=== PATIENT | male | born 1940 | race Caucasian/White ===

== ENCOUNTER → 2016-09-15 | Outpatient (CLI) | payer BC ==
[~2016-09-15] MED LIST: ALPR-411 PO; ASPI81TA21 PO; CALC500C70 PO; EZET10TA38 PO; FLAX12003 PO; GLUC10007 PO; GLUCTAB7 PO; HYT/2 PO; IBUP-1050 PO; IRBE-37 PO; MELA1TAB5 PO; METO-551 PO; MULT-506 PO; NRN/300 PO; OMEG10007 PO; OMEP20TA74 PO; RXC5 PO; TERAZOSIN PO; [UNRECOGNIZED DRUG - CODE] PO; [UNRECOGNIZED DRUG - OTHER] PO; [UNRECOGNIZED DRUG - OTHER] PO
[2016-09-15 15:32] LABS: BASO % 0.7 %; BASO ABS # 0.03 K/uL (0-0.2); COMPLETE YES; EOS % 4.8 %; HEMATOCRIT 34.2 % (42-52); IG% 0.2 %; LYMPH % 15.8 %; MEAN CELL VOLUME 90.7 fL (80-100); MEAN CORPUSCULAR HEMOGLOBIN 32.1 pg (25-34); MEAN CORPUSCULAR HGB CONC 35.4 g/dl (32-36); MEAN PLATELET VOLUME 8.7 fL (7.4-10.4); MONO % 12.4 %; NEUT % 66.1 %; PLATELET COUNT 274 K/uL (130-400); RED BLOOD COUNT 3.77 M/uL (4.7-6.1); WHITE BLOOD COUNT 4.42 K/uL (4.8-10.8)
[2016-09-15 16:02] LABS: FERRITIN 116.8 ng/ml (8.0-388.0)
== END | disposition home or self-care (01) ==
LOC: C.LAB 14:17
DX: D64.9 Anemia, unspecified (principal)

== ENCOUNTER → 2017-01-30 | Day surgery (SDC) | payer BC, OTHER ==
[2017-01-27 10:16] VITALS: Ht 171.5 cm; Wt 77.3 kg
[~2017-01-30] VITALS: Ht 171.5 cm; Wt 77.3 kg
[~2017-01-30] MED LIST changes: +500ML BSS 0.3ML EPI 1:1000PF IRRIG ONE; +ACETAMINOPHEN 325 MG TAB PO PRN; +AMVISC PLUS 0.8ML SYRINGE INT OCU ONE; +ATROPINE SULFATE 0.1 MG/ML 5ML SYR IV PRN; +BRIMONIDINE TART 0.2% OP SOLN PER DROP CHARGE ONE; +BSS FLUSH ONE; +ENDOCOAT 0.85ML SYRINGE INT OCU ONE; +EpINEphrine INJ 1MG/ML AMP 1 MG/ML AMP ONE; +LACTATED RINGER'S 1000ML 500 ML IV SCH; +LIDOCAINE 4% OP SOLN DROP CHARGE ONE; +LIDOCAINE 4% OP SOLN DROP CHARGE OPL SCH; +LIDOCAINE HCL 1% MPF 2 ML VIAL ONE; +MIDAZOLAM HCL 1 MG/ML 2ML VIAL ONE; +MIX: 3ML BSS AND 1ML EPI(PF) TOP ONE; +MOXIFLOXACIN OPH SOLN PER DROP CHARGE ONE; -NRN/300 PO; +POVIDONE-IODINE OP SOLN 30 ML BTL ONE; +PROPARACAINE 0.5% OP SOLN PER DROP CHARGE OPL SCH; +TOBRAMYCIN/DEXAMETHASONE OPH OINT PER APPLN CHARGE ONE
[2017-01-30] MEDS: PHENYLEPHRINE HCL 2.5% OP SOLN PER DROP CHARGE OPL SCH ×2 (10:16→10:21)
[2017-01-30] MEDS: TROPICAMIDE 1% OP SOLN PER DROP CHARGE OPL SCH ×2 (10:17→10:22)
[2017-01-30] MEDS: CYCLOPENTOLATE HCL 1% OP SOLN PER DROP CHARGE OPL SCH ×2 (10:18→10:23)
[2017-01-30] MEDS: KETOROLAC 0.5% OP SOLN PER DROP CHARGE OPL SCH ×2 (10:19→10:24)
[2017-01-30] MEDS: MOXIFLOXACIN OPH SOLN PER DROP CHARGE OPL SCH ×2 (10:20→10:30)
--- NOTE | 2017-01-30 10:40 | History & Physical Bridge - [place] ---
H&P Re-Evaluation Bridge Note: I have examined the patient, reviewed the History & Physical and in the interval since the performance of the History & Physical I have noted the following changes of clinical significance: No changes noted
--- NOTE | 2017-01-30 11:39 | Discharge Instructions-SurgCtr ---
Discharge Instructions Date of Service Jan 30, 2017. Visit Reason for Visit: Cataract Left Eye Discharge Discharge Diagnosis / Problem: cataract left eye Discharge Goals Goal(s): Improve function Activity Recommendations Activity Limitations: per Instructions/Follow-up section Lifting Limitations: no more than 5 pounds Anesthesia . Post Anesthesia Instructions: If you have had General Anesthesia or IV Sedation: * Do not drive today. * Resume driving when surgeon permits. * Do not make important decisions or sign legal documents today. * Call surgeon for: 1. Temperature elevations greater than 101 degrees F. 2. Uncontrollable pain. 3. Excessive bleeding. 4. Persistent nausea and vomiting. 5. Medication intolerance (nausea, vomiting or rash). * For nausea and vomiting use only clear liquids such as: tea, soda, bouillon until nausea subsides, then gradually increase diet as tolerated. * If you have any concerns or questions, call your surgeon's office. If physician is unavailable and it is an emergency, call 911 or go to the nearest emergency room. . Instructions / Follow-Up Instructions / Follow-Up ACTIVITY RECOMMENDATIONS: * Light activities * You may walk outside, read, watch television. * Mild irritation and blurred vision are common for the first few days, redness around the white part of the eye is common. MEDICATIONS: Resume previous medications unless instructed otherwise by your surgeon. Eye drops (today and tomorrow): Cipro - one drop in operative eye every 2 hours while awake Prednisolone 1% - one drop in operative eye every 2 hours while awake Ilevro - one drop operative eye 1 times daily SPECIAL CARE INSTRUCTIONS: * If any problems or concerns, please call Dr. Mar's office at . * Keep plastic shield taped over eye to sleep at night. * Keep plastic shield taped over eye except to administer eye drops. * Keep plastic shield on until office visit the following day. FOLLOW UP VISIT: Follow-up with Dr. Mar in the [place] office as scheduled. If not already scheduled, please call the office at . Diet Recommendations Home Diet: resume previous diet Procedures Procedures Performed: Left Cataract Phacoemulsification With Intraocular Lens Implant Pending Studies Studies pending at discharge: no Medical Emergencies . Who to Call and When: Medical Emergencies: If at any time you feel your situation is an emergency, please call 911 immediately. . Non-Emergent Contact Non-Emergency issues call your: Senior Billing Consultant . . "Provider Documentation" section prepared by George Mar. .
--- NOTE | 2017-01-30 11:42 | [facility] Operative Report ---
Operative Report Operative Date Jan 30, 2017. Pre-Operative Diagnosis Cataract Left Eye Post-Operative Diagnosis Same Procedure(s) Performed Left Cataract Phacoemulsification With Intraocular Lens Implant Surgeon Dr. Mar Blue Print Control Clerk Surgeon(s) None Estimated Blood Loss 0 mL Findings cataract left eye Specimens None Drains none Anesthesia local with sedation Complication(s) None Disposition Recovery Room / PACU Implants MX60 17.0 Indications decreased vision left eye Description of Procedure After informed consent was obtained in the holding area the patient was wheeled back to the operating room where cardiac monitoring leads and oxygen by nasal cannula was administered by Anesthesia. Gentle IV sedation was given, and the patient's left eye was prepped and draped in usual sterile fashion. A wire lid speculum was placed into the left eye and the operating microscope was swung into position. Using 0.12 forceps and a Supersharp blade a paracentesis port was made 3 o'clock hours away from the 3 o'clock position of the patient's left eye. 1% non-preserved Lidocaine was then injected into the anterior chamber for anesthesia followed by 1ml of nonpreserved epinephrine in 3ml of bss for pupillary dilation. A 2.2 mm keratotome blade was then used to make a shelved clear corneal incision at the 3 o'clock position of the left eye. Amvisc was injected into the anterior chamber and a cystotome and Utrata forceps were used to perform a curvilinear capsulorrhexis. BSS on a hydrodissection cannula was used to hydrodissect the lens nucleus away from the capsular bag. The phacoemulsification handpiece was then used in a stop and chop fashion to remove the lens nucleus. The irrigation and aspiration handpiece was then used to remove the residual cortical material. Amvisc was injected into the capsular bag and anterior chamber and a [employer]ch [employer] Lomb MX60 17.0 Diopter intraocular lens was injected into the capsular bag. Irrigation and aspiration handpiece was used to remove the residual viscoelastic material. The wounds were hydrated and noted to be watertight. The wire lid speculum was removed from the eye. Vigamox, Brimonidine, and TobraDex ointment were placed on the eye and it was shielded. It should be noted that EndoCoat was used extensively during the case to protect the cornea endothelium. DISPOSITION: The patient tolerated the procedure well and was wheeled to the post anesthesia care unit in stable condition. I attest to the content of the Intraoperative Record and any orders documented therein. Any exceptions are noted below. I attest to the content of the Intraoperative Record and any orders documented therein. Any exceptions are noted below.
[2017-01-30 12:06] VITALS: BP 156/92; PULSE 51; TEMP 36.2; O2SAT 100
--- NOTE | 2017-01-30 12:07 | Anesthesia Progress Nt - [facility] ---
Anesthesia Post Op Note Date & Time Jan 30, 2017 at 12:07 Vital Signs Pain Intensity: 0 Vital Signs Past 12 Hours Date Time Temp Pulse Resp B/P (MAP) Pulse Ox O2 Delivery O2 Flow Rate FiO2 01/30/17 11:39 36.0 66 16 150/95 (113) 97 Room Air 01/30/17 09:59 36.4 52 16 159/92 (114) 100 Room Air Notes Mental Status: alert / awake / arousable, participated in evaluation Pt Amnestic to Procedure: Yes Nausea / Vomiting: adequately controlled Pain: adequately controlled Airway Patency, RR, SpO2: stable & adequate BP & HR: stable & adequate Hydration State: stable & adequate Anesthetic Complications: no major complications apparent
== END | disposition home or self-care (01) ==
LOC: X.SURG 08:29
PROVIDERS: ATTEND Ophthalmology
DX: H26.9 Unspecified cataract (principal); I10 Essential (primary) hypertension; M19.90 Unspecified osteoarthritis, unspecified site; D64.9 Anemia, unspecified

== ENCOUNTER → 2017-02-01 | Outpatient (CLI) | payer BC ==
[~2017-02-01] MED LIST changes: -500ML BSS 0.3ML EPI 1:1000PF IRRIG ONE; -ACETAMINOPHEN 325 MG TAB PO PRN; -AMVISC PLUS 0.8ML SYRINGE INT OCU ONE; -ATROPINE SULFATE 0.1 MG/ML 5ML SYR IV PRN; -BRIMONIDINE TART 0.2% OP SOLN PER DROP CHARGE ONE; -BSS FLUSH ONE; -ENDOCOAT 0.85ML SYRINGE INT OCU ONE; -EpINEphrine INJ 1MG/ML AMP 1 MG/ML AMP ONE; -LACTATED RINGER'S 1000ML 500 ML IV SCH; -LIDOCAINE 4% OP SOLN DROP CHARGE ONE; -LIDOCAINE 4% OP SOLN DROP CHARGE OPL SCH; -LIDOCAINE HCL 1% MPF 2 ML VIAL ONE; -MIDAZOLAM HCL 1 MG/ML 2ML VIAL ONE; -MIX: 3ML BSS AND 1ML EPI(PF) TOP ONE; -MOXIFLOXACIN OPH SOLN PER DROP CHARGE ONE; -POVIDONE-IODINE OP SOLN 30 ML BTL ONE; -PROPARACAINE 0.5% OP SOLN PER DROP CHARGE OPL SCH; -TOBRAMYCIN/DEXAMETHASONE OPH OINT PER APPLN CHARGE ONE
== END | disposition home or self-care (01) ==
LOC: C.CTS 12:10
PROVIDERS: ATTEND Orthopaedic Surgery
DX: M19.019 Primary osteoarthritis, unspecified shoulder (principal)

== ENCOUNTER → 2017-03-31 | Outpatient (CLI) | payer BC ==
[~2017-03-31] MED LIST changes: -TERAZOSIN PO; -[UNRECOGNIZED DRUG - CODE] PO; -[UNRECOGNIZED DRUG - OTHER] PO
[2017-03-31 09:40] LABS: BASO % 0.6 %; BASO ABS # 0.02 K/uL (0-0.2); COMPLETE YES; EOS % 6.4 %; HEMATOCRIT 39.8 % (42-52); LYMPH % 13.6 %; LYMPH ABS # 0.49 K/uL (1.2-3.4); MEAN CELL VOLUME 93.6 fL (80-100); MEAN CORPUSCULAR HGB CONC 34.2 g/dl (32-36); MEAN PLATELET VOLUME 8.8 fL (7.4-10.4); MONO % 13.6 %; NEUT % 65.8 %; PLATELET COUNT 279 K/uL (130-400); RED BLOOD COUNT 4.25 M/uL (4.7-6.1); WHITE BLOOD COUNT 3.61 K/uL (4.8-10.8)
[2017-03-31 09:42] LABS: URINE APPEARANCE CLEAR (CLEAR); URINE BILIRUBIN NEG (NEG); URINE COLOR YELLOW; URINE NITRITE NEG (NEG); URINE PH 6.5 (4.5-7.5); URINE SPECIFIC GRAVITY 1.018 (1.000-1.030); UROBILINOGEN NEG (NEG)
[2017-03-31 09:48] LABS: MANUAL MICROSCOPIC REQUIRED? NO; REVIEW REQ? NO
[2017-03-31 09:54] LABS: INR 1.1 (0.9-1.1); PARTIAL THROMBOPLASTIN RATIO 1.1; PROTHROMBIN TIME (PATIENT) 11.8 SECONDS (9.0-12.0)
[2017-03-31 10:08] LABS: ALT/SGPT 30 U/L (12-78); AST/SGOT 24 U/L (15-37); BLOOD UREA NITROGEN 30 mg/dl (7-18); BUN/CREATININE RATIO 30.2 (10-20); CARBON DIOXIDE 29 mmol/L (21-32); CHLORIDE 106 mmol/L (98-107); GLUCOSE 86 mg/dl (70-99); POTASSIUM 4.1 mmol/L (3.5-5.1); SODIUM 139 mmol/L (136-145)
[2017-03-31 10:16] LABS: CHOLESTEROL 102 mg/dl (0-200); CHOLESTEROL/HDL RATIO 3.2; HDL CHOLESTEROL 32 mg/dl; LDL CHOLESTEROL CALCULATED 61 mg/dl; TRIGLYCERIDES 44 mg/dl (0-150); VERY LOW DENSITY LIPOPROT CALC 9 mg/dl
== END | disposition home or self-care (01) ==
LOC: C.LAB 07:05
PROVIDERS: ATTEND Orthopaedic Surgery
DX: Z01.812 Encounter for preprocedural laboratory examination (principal); M19.012 Primary osteoarthritis, left shoulder; E78.5 Hyperlipidemia, unspecified; I10 Essential (primary) hypertension

== ENCOUNTER 2017-04-17 09:16 | Inpatient (IN) | payer BC, OTHER ==
[2017-02-01 13:13] VITALS: BMI 26.0
--- NOTE | 2017-02-01 13:52 | PAT Medication Instructions ---
Service Date Feb 01, 2017. Current Home Medication List Alprazolam (Xanax), 0.5 MG PO HS Aspirin Enteric Coated (Ecotrin Or Generic), 81 MG PO QPM Calcium/Vitamin D (Os-Brad 500 Plus D), 1 TAB PO BID Ezetimibe/Simvastatin (Vytorin 10MG/20MG), 0.5 TABLET PO HS Fish Oil ([place]-3), 1 CAP PO BID Flaxseed (Linseed) (Flaxseed Oil), 1 TAB PO NOON Glucosamine Sulfate (Glucosamine), 1,000 MG PO NOON Pvfdscfuzas-Jlmwyfrxtil-Hpx C- (Glucosamine Chondroitin), 1 TAB PO BID Ibuprofen (Advil), 200-800 MG PO PRN Irbesartan (Avapro), 150 MG PO QAM Melatonin (Kp Melatonin), 1 TAB PO HS Metoprolol Tartrate (Lopressor), 25 MG PO BID Multivitamin (Multivitamin), 1 TABLET PO QAM Omeprazole (Ra Omeprazole), 20 MG PO QPM Terazosin Hcl (Hytrin), 1 MG PO HS [Natural Gh Formula], 1 TAB PO HS Medication Instructions For Your Scheduled Surgery - Hold the following medications 2 weeks prior to surgery: Fish Oil ([place]-3), 1 CAP PO BID Flaxseed (Linseed) (Flaxseed Oil), 1 TAB PO NOON Glucosamine Sulfate (Glucosamine), 1,000 MG PO NOON Hqevnpitjem-Wevrkgtfihj-Dfl C- (Glucosamine Chondroitin), 1 TAB PO BID [Natural Gh Formula], 1 TAB PO HS - Hold the following medications the morning of surgery: Irbesartan (Avapro), 150 MG PO QAM Multivitamin (Multivitamin), 1 TABLET PO QAM Calcium/Vitamin D (Os-Brad 500 Plus D), 1 TAB PO BID Ibuprofen (Advil), 200-800 MG PO PRN (otherwise okay to continue per surgeon) - Take the following medications the morning of surgery with a sip of water OTHERWISE NOTHING TO EAT OR DRINK AFTER MIDNIGHT: Metoprolol Tartrate (Lopressor), 25 MG PO BID - Take the following medications as scheduled the night before surgery: Ezetimibe/Simvastatin (Vytorin 10MG/20MG), 0.5 TABLET PO HS Alprazolam (Xanax), 0.5 MG PO HS Aspirin Enteric Coated (Ecotrin Or Generic), 81 MG PO QPM Omeprazole (Ra Omeprazole), 20 MG PO QPM Terazosin Hcl (Hytrin), 1 MG PO HS Melatonin (Kp Melatonin), 1 TAB PO HS Metoprolol Tartrate (Lopressor), 25 MG PO BID Calcium/Vitamin D (Os-Brad 500 Plus D), 1 TAB PO BID If you have any questions please call us at [phone] or [phone] or [phone]
[2017-02-01 14:31] LABS: BASO % 0.7 %; BASO ABS # 0.03 K/uL (0-0.2); COMPLETE YES; EOS % 3.8 %; HEMATOCRIT 37.9 % (42-52); IG% 0.2 %; LYMPH % 13.6 %; MEAN CELL VOLUME 92.7 fL (80-100); MEAN CORPUSCULAR HGB CONC 34.6 g/dl (32-36); MEAN PLATELET VOLUME 8.6 fL (7.4-10.4); MONO % 12.4 %; NEUT % 69.3 %; PLATELET COUNT 287 K/uL (130-400); RED BLOOD COUNT 4.09 M/uL (4.7-6.1); WHITE BLOOD COUNT 4.42 K/uL (4.8-10.8)
[2017-02-01 14:40] LABS: INR 1.1 (0.9-1.1); PROTHROMBIN TIME (PATIENT) 11.3 SECONDS (9.0-12.0); URINE APPEARANCE CLEAR (CLEAR); URINE BILIRUBIN NEG (NEG); URINE COLOR YELLOW; URINE NITRITE NEG (NEG); URINE PH 7.5 (4.5-7.5); URINE SPECIFIC GRAVITY 1.012 (1.000-1.030); UROBILINOGEN NEG (NEG); ZZUR CULT IF INDIC CLEAN CATCH NO
[2017-02-01 14:46] LABS: MANUAL MICROSCOPIC REQUIRED? NO; REVIEW REQ? NO
--- NOTE | 2017-02-01 14:54 | DIAGNOSTIC IMAGING REPORT ---
TWO VIEW CHEST CLINICAL HISTORY: Preoperative examination. FINDINGS: PA and lateral chest radiographs are compared to study dated 11/18/2015 and correlated with chest CT dated 11/25/2015. The cardiomediastinal silhouette is unremarkable. There is atherosclerotic calcification of the thoracic aorta. The lungs and pleural spaces are clear. There is no pneumothorax. There are healed right-sided rib fractures. Degenerative change and scoliosis are noted in the thoracic spine. IMPRESSION: No active disease in the chest. Electronically signed by: Bladimir Gant M.D. 02/01/2017 2:53 PM Dictated Date/Time: 02/01/2017 2:52 PM
[2017-02-01 16:26] LABS: BUN/CREATININE RATIO 24.1 (10-20); CALCIUM 9.7 mg/dl (8.5-10.1); CREATININE 1.1 mg/dl (0.60-1.40); POTASSIUM 4.3 mmol/L (3.5-5.1)
[2017-03-30 08:08] VITALS: BMI 26.0
--- NOTE | 2017-04-14 09:47 | HISTORY & PHYSICAL EXAMINATION ---
DATE OF ADMISSION: 04/17/2017 CHIEF COMPLAINT: Primary osteoarthritis of the left shoulder. HISTORY OF PRESENT ILLNESS: Laci is a pleasant 77-year-old male who has been dealing with chronic left shoulder pain. X-rays and clinical examination are diagnostic for primary osteoarthritis of the left shoulder. 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 He has elected to proceed with a left total shoulder arthroplasty. He understands all the risks, benefits, alternatives to procedure and elected to proceed. PAST MEDICAL HISTORY: Hyperlipidemia, hypertension, and prostate cancer. MEDICATIONS: Include alprazolam 0.5 mg daily, Avapro 150 mg daily, metoprolol 25 mg twice a day, Vytorin 10/20, one-half tab daily, omeprazole 20 mg daily, calcium 600 mg twice a day, glucosamine 1500 mg daily, aspirin 81 mg daily, terazosin 1 mg daily, and a daily multivitamin. PAST SURGICAL HISTORY: Significant for surgery to his head, surgery to his neck, his back and his arm. ALLERGIES: None. FAMILY HISTORY: Noncontributory. SOCIAL HISTORY: The patient is . Rarely drinks, is very active. REVIEW OF SYSTEMS: The patient complains of left shoulder pain. All other pertinent review of systems are negative. PHYSICAL EXAMINATION: GENERAL: He is awake, alert and oriented x3. He is in no apparent distress. He is very pleasant. HEAD, EYES, EARS, NOSE, AND THROAT: Pupils are equal, round and reactive to light. Extraocular motion intact. Oral mucosa is pink and moist. HEART: Regular rate per radial pulse. LUNGS: Vandana symmetrically bilaterally with no audible breath sounds. ABDOMEN: Soft, nontender, nondistended. MUSCULOSKELETAL: On physical examination of the left shoulder, he has about 140 degrees of forward flexion and 40 degrees of abduction. He has 5/5 muscle strength, full can testing and external rotation. He has significant crepitus throughout. Pain over the anterior glenohumeral joint line. X-rays of the left shoulder do show advanced osteoarthritis with complete loss of joint space and osteophyte formation. IMPRESSION: Primary osteoarthritis of the left shoulder. PLAN: We will proceed with a Biomet comprehensive left total shoulder arthroplasty. Postoperatively, he will be placed in a sling and kept overnight for postoperative medical management.
[2017-04-17] VITALS (9 sets, daily range): BP systolic 122–173; BP diastolic 70–93; PULSE 57–107; TEMP 36.3–36.8; O2SAT 94–97; Ht 172.7 cm; Wt 75.0 kg
[~2017-04-17] VITALS: Ht 172.7 cm; Wt 75.0 kg
[2017-04-17] MEDS: TRANEXAMIC ACID INJ 1,000 MG in SODIUM CHLORIDE 0.9% 100ML 100 ML IV SCH ×2 (06:30→11:56)
[~2017-04-17 09:16] MED LIST changes: +ACETAMINOPHEN 500 MG TAB PO SCH; +CEFAZOLIN 2000 MG/60 ML D5W 60 ML IV SCH; +FAMOTIDINE 20 MG TAB PO SCH; +GABAPENTIN 300 MG CAP PO SCH; +LACTATED RINGER'S 1000ML 1,000 ML IV SCH; +LACTATED RINGER'S 1000ML IV SCH; +ROPIVACAINE 0.5% 5 MG/ML 30 ML VIAL ONE; +ROPIVACAINE 5MG/ML 30 ML 150 MG, BUPIVACAINE/EPINEPHR 0.5% MPF 30 ML, KETOROLAC TROMETH... INFIL SCH; -RXC5 PO; +TRANEXAMIC ACID INJ 1,000 MG in SODIUM CHLORIDE 0.9% 100ML 100 ML IV SCH
[2017-04-17] MEDS ORDERED: EpHEDrine SULFATE INJ 50 MG/ML AMP IV PRN (10:30)
[2017-04-17] MEDS ORDERED: ATROPINE SULFATE 0.1 MG/ML 5ML SYR IV PRN (10:30)
[2017-04-17] MEDS ORDERED: FENTANYL CITRATE INJ 50 MCG/1 ML 2 ML VIAL IV PRN (10:30)
[2017-04-17] MEDS ORDERED: ONDANSETRON INJ 2 MG/ML 2 ML VIAL IV PRN ×2 (10:30→14:15)
[2017-04-17] MEDS ORDERED: ORTHO JOINT ANESTHETIC ONE (11:01)
[2017-04-17] MEDS ORDERED: BACITRACIN 50000 UNIT VIAL ONE (11:02)
[2017-04-17] MEDS ORDERED: MIDAZOLAM HCL 1 MG/ML 2ML VIAL ONE (11:58)
[2017-04-17] MEDS ORDERED: LIDOCAINE HCL 2% 2 ML VIAL (20MG/ML) ONE (11:58)
[2017-04-17] MEDS ORDERED: NEOSTIGMINE METHYLSULFATE 5 MG/5 ML SYR ONE (11:58)
[2017-04-17] MEDS ORDERED: ROCURONIUM BROMIDE 10 MG/ML 5 ML VIAL IV ONE ×2 (11:58→12:43)
[2017-04-17] MEDS ORDERED: DEXAMETHASONE SOD INJ 4 MG/ML VIAL ONE (11:58)
[2017-04-17] MEDS ORDERED: ONDANSETRON INJ 2 MG/ML 2 ML VIAL ONE (11:58)
[2017-04-17] MEDS ORDERED: FENTANYL CITRATE INJ 50 MCG/1 ML 2 ML VIAL ONE (11:58)
[2017-04-17] MEDS ORDERED: PROPOFOL IV EMULSION 10 MG/ML 20 ML VIAL IV ONE (11:58)
[2017-04-17] MEDS ORDERED: GLYCOPYRROLATE INJ 0.2 MG/ML VIAL ONE ×2 (11:58→12:49)
[2017-04-17] MEDS ORDERED: EpHEDrine SULFATE 50MG/5ML SYR ONE (12:43)
[2017-04-17] MEDS ORDERED: LARYING-O-JET KIT (LTA) ONE ×2 (13:11)
[2017-04-17] MEDS ORDERED: WATER, STERILE FOR INJ 10 ML VIAL ONE (13:54)
[2017-04-17] MEDS ORDERED: PHENYLEPHRINE HCL INJ 10 MG/ML VIAL ONE (13:54)
[2017-04-17] MEDS ORDERED: EpHEDrine SULFATE INJ 50 MG/ML AMP ONE (13:54)
--- NOTE | 2017-04-17 14:04 | [facility] Post Operative Brief Note ---
Immediate Operative Summary Operative Date Apr 17, 2017. Pre-Operative Diagnosis Primary osteoarthritis of left shoulder Post-Operative Diagnosis same as preop Procedure(s) Performed Left total shoulder arthroplasty Surgeon Dr. Frederick Siu Housing Project Manager Surgeon(s) Xavier Dueñas PA-C Estimated Blood Loss 250 ml Findings as above Specimens A: Left humeral head Complication(s) None Disposition Recovery Room / PACU
[2017-04-17] MEDS ORDERED: NALOXONE HCL 0.4 MG/1 ML VIAL/CARP IV PRN (14:15)
[2017-04-17] MEDS ORDERED: MAGNESIUM HYDROXIDE SUSP 30 ML UDC PO PRN (14:15)
[2017-04-17] MEDS ORDERED: METOCLOPRAMIDE HCL INJ 5 MG/ML 2 ML VIAL IV PRN (14:15)
[2017-04-17] MEDS ORDERED: SOD PHOSPHATE/SOD BIPHOSPHATE ENEMA 132 ML BTL PR PRN (14:15)
[2017-04-17] MEDS ORDERED: MoRPHine SULFATE 2 MG/ML CARP IV PRN (14:15)
[2017-04-17] MEDS ORDERED: OXYCODONE HCL IR 5 MG TAB (IMMEDIATE RELEASE) PO PRN (14:15)
[2017-04-17] MEDS ORDERED: BISACODYL 10 MG SUPP PR PRN (14:15)
--- NOTE | 2017-04-17 14:43 | DIAGNOSTIC IMAGING REPORT ---
LEFT SHOULDER MIN 2 VIEWS ROUTINE CLINICAL HISTORY: Post shoulder surgery. COMPARISON: CT of the left shoulder February 01, 2017. FINDINGS: Alignment of the left shoulder arthroplasty is anatomic. There is no periprosthetic fracture or unexpected radiopaque foreign body. Surgical drains are in place. There are skin deric. IMPRESSION: Expected findings following left shoulder arthroplasty. Electronically signed by: Prem Chowdhury M.D. 04/17/2017 2:42 PM Dictated Date/Time: 04/17/2017 2:41 PM
--- NOTE | 2017-04-17 15:12 | Anesthesiology Progress Note ---
Anesthesia Post Op Note Date & Time Apr 17, 2017 at 15:12 Vital Signs Pain Intensity: 1 Vital Signs Past 12 Hours Date Time Temp Pulse Resp B/P (MAP) Pulse Ox O2 Delivery O2 Flow Rate FiO2 04/17/17 14:56 159/88 04/17/17 14:55 64 17 99 04/17/17 14:55 64 17 04/17/17 14:51 166/86 04/17/17 14:50 79 16 04/17/17 14:50 80 16 99 04/17/17 14:46 165/97 04/17/17 14:45 84 16 04/17/17 14:45 84 16 100 04/17/17 14:42 161/90 04/17/17 14:40 69 14 99 04/17/17 14:40 69 14 04/17/17 14:36 175/99 04/17/17 14:35 73 14 100 04/17/17 14:35 75 14 04/17/17 14:31 172/115 04/17/17 14:30 93 18 100 04/17/17 14:30 95 18 04/17/17 14:26 185/96 04/17/17 14:25 94 19 04/17/17 14:25 94 19 100 04/17/17 14:22 172/96 04/17/17 14:15 36.2 110 18 181/97 99 Oxymask 10 04/17/17 09:38 36.3 57 18 166/92 97 Room Air Notes Mental Status: alert / awake / arousable, participated in evaluation Pt Amnestic to Procedure: Yes Nausea / Vomiting: adequately controlled Pain: adequately controlled Airway Patency, RR, SpO2: stable & adequate BP & HR: stable & adequate Hydration State: stable & adequate Anesthetic Complications: no major complications apparent
--- NOTE | 2017-04-17 16:38 | OPERATIVE REPORT ---
DATE OF OPERATION: 04/17/2017 PREOPERATIVE DIAGNOSIS: Osteoarthritis of the left shoulder. POSTOPERATIVE DIAGNOSIS: Same. PROCEDURE: Left total shoulder arthroplasty. SURGEON: Dr. Frederick Siu. SERVICE CONTROL OPERATOR: Andrew Dueñas PA-C, whose assistance was necessary for positioning the arm and helping with instrumentation and retraction. ANESTHESIA: General with a left interscalene nerve block. COMPLICATIONS: None. CONDITION: Stable to PACU. IMPLANTS USED: I used a Biomet comprehensive left total shoulder arthroplasty with a size 16 mini stem, a 46 x 18 Versa-Dial eccentric humeral head and a size medium glenoid with a Regenerex peg. The glenoid was cemented with Palacos-G cement. INDICATIONS: Laci is a 77-year-old male who presented to my office with chronic increasing left shoulder pain. X-rays and clinical examination were diagnostic for primary osteoarthritis of the left shoulder. After failing extensive conservative treatment, he elected to undergo a left total shoulder arthroplasty. DESCRIPTION OF PROCEDURE: On 04/17/2017, he arrived at [facility] for the above procedure. He was seen in the preoperative holding area and the operative extremity was identified and signed. He was given preoperative antibiotics and a left interscalene nerve block. He was taken back to the operating room, laid on the table in supine position and put under general anesthesia. He was then put into the beachchair position. The left shoulder was prepped and draped in sterile fashion. Time-out was done and the patient and operative extremity was properly identified. A deltopectoral approach was used. Dissection was taken down through the fascia and the anterior shoulder was exposed. The long head of biceps tendon was tenodesed to the upper border of pec major. The rotator interval was opened up. The subscapularis was then tenotomized off the lesser tuberosity with a centimeter of cuff tissue remaining. The shoulder was then dislocated. A canal finding reamer was sent down the center of the humeral canal. Sequential reaming up to a size 16 reamer was done. Off that reamer, a proximal humeral resection guide was placed and the proximal humerus was resected at 135 degrees of inclination and 30 degrees of retroversion. Inferior osteophytes were then removed and the glenoid was exposed. The superior and anterior inferior labrums were removed. The remainder of the labrum and the ligaments were left intact. The Biomet signature guide was then snapped on to the superior aspect of the glenoid and a guide pin was placed in the total shoulder arthroplasty hole. This set the glenoid at 7 degrees of retroversion. Eccentric reaming was done and I was able to get the glenoid flat with subchondral bone. A central peg hole was then drilled followed by 3 peripheral peg holes. The final size medium glenoid was then cemented in place with Palacos-G cement. Once cement had hardened, the proximal humerus was exposed. Sequential broaching up to a size 16 broach was done. A trial 46 x 18 mm head was used. The shoulder was reduced, brought through a full range of motion and felt to be stable. The trials were then removed. The final 16 mini stem was impacted into place. A 46 x 18 eccentric head was then impacted onto the humeral stem and the shoulder was reduced. It felt stable. The surrounding soft tissues were then injected with 100 mL of an orthopedic pain control cocktail. The joint was then irrigated with 3 liters of normal saline solution with bacitracin. The subscapularis was then tenodesed back to the lesser tuberosity with transosseous FiberWire sutures and croa-le-dcuy sutures. The rotator interval was closed. He still had good external rotation. The axillary nerve was then palpated. A drain was placed. Skin was closed with 2-0 Vicryl, 3-0 V-Loc suture and deric. He was placed in a soft dressing and regular arm sling. He was then extubated, transferred to a [facility] and taken to the postanesthesia care unit in stable condition. He tolerated the procedure well. I attest to the content of the Intraoperative Record and any orders documented therein. Any exception s are noted below.
[2017-04-17] MEDS: POTASSIUM CHLORIDE INJ 10 MEQ in SODIUM CHLORIDE 0.9% 1000ML 1,000 ML IV SCH (16:54)
[2017-04-17] MEDS: ACETAMINOPHEN IV 1,000 MG in EMPTY BAG 0 ML IV SCH (18:31)
[2017-04-17] MEDS: KETOROLAC TROMETHAMINE 15 MG/ML VIAL IV. SCH ×2 (18:32→23:44)
[2017-04-17] MEDS ORDERED: NON-FORMULARY MEDICATION (Melatonin (Kp Melatonin) 1 TAB) PO SCH (21:00)
[2017-04-17] MEDS ORDERED: EZETIMIBE/SIMVASTATIN 10/20 TAB PO SCH (21:00)
[2017-04-17] MEDS ORDERED: ASPIRIN 81 MG ECTAB PO SCH (21:00)
[2017-04-17] MEDS ORDERED: SENNA 8.6 MG TAB PO SCH (21:00)
[2017-04-17] MEDS ORDERED: ALPRAZOLAM 0.5 MG TAB PO SCH (21:00)
[2017-04-17] MEDS: CEFAZOLIN IV 2,000 MG in DEXTROSE 5% 50ML 50 ML IV SCH (21:29)
[2017-04-17] MEDS: CALCIUM 600MG + VIT D 400 IU TAB PO SCH (21:31)
[2017-04-17] MEDS: DOCUSATE SODIUM 100 MG CAP PO SCH (21:32)
[2017-04-17] MEDS: METOPROLOL TARTRATE 25 MG TAB PO SCH (21:34)
[2017-04-17] MEDS ORDERED: LIDOCAINE HCL 2% JELLY 30 ML TUBE EXT ONE (22:57)
[2017-04-18] MEDS: ACETAMINOPHEN IV 1,000 MG in EMPTY BAG 0 ML IV SCH ×2 (02:41→10:18)
[2017-04-18] MEDS: POTASSIUM CHLORIDE INJ 10 MEQ in SODIUM CHLORIDE 0.9% 1000ML 1,000 ML IV SCH (02:41)
[2017-04-18] MEDS: CEFAZOLIN IV 2,000 MG in DEXTROSE 5% 50ML 50 ML IV SCH (03:40)
[2017-04-18 03:41] VITALS: BP 114/69; PULSE 64; TEMP 36.8; O2SAT 94
[2017-04-18] MEDS: KETOROLAC TROMETHAMINE 15 MG/ML VIAL IV. SCH (05:23)
[2017-04-18 06:25] LABS: HEMATOCRIT 35.2 % (42-52); MEAN CELL VOLUME 92.6 fL (80-100); MEAN CORPUSCULAR HEMOGLOBIN 31.8 pg (25-34); MEAN CORPUSCULAR HGB CONC 34.4 g/dl (32-36); MEAN PLATELET VOLUME 8.7 fL (7.4-10.4); PLATELET COUNT 215 K/uL (130-400); WHITE BLOOD COUNT 12.36 K/uL (4.8-10.8)
[2017-04-18 07:06] LABS: CALCIUM 8.6 mg/dl (8.5-10.1); CREATININE 1.3 mg/dl (0.60-1.40); POTASSIUM 4.3 mmol/L (3.5-5.1)
[2017-04-18] MEDS ORDERED: RXC5 PO (07:13)
[2017-04-18 07:14] VITALS: BP 164/82; PULSE 57; TEMP 36.6; O2SAT 98
--- NOTE | 2017-04-18 07:14 | Discharge Instructions ---
Discharge Instructions Date of Service Apr 18, 2017. Admission Reason for Admission: Left Shoulder Degenerative Joint Disease Discharge Discharge Diagnosis / Problem: Left Total Shoulder Discharge Goals Goal(s): Decrease discomfort, Improve function Activity Recommendations Activity Limitations: as noted below . Instructions / Follow-Up Instructions / Follow-Up Activity and Therapy Recommendations: * Wear your sling for 3 weeks, unless otherwise instructed. You may remove your sling to shower and to dress, but otherwise, you should be in your sling at all times, including while sleeping * The shoulder replacement is very stable and you can use your hand while in the sling * Physical Therapy should start about 3-5 days from your day of surgery. Therapy will last about 8-12 weeks * You were shown a series of exercises in the hospital. Do these exercises daily including the exercises you were shown in physical therapy. Medications: * Narcotic You will likely be sent home from the hospital with a prescription for the narcotic pain medication that worked best throughout your stay. * Other medications may be prescribed for specific circumstances. If you have any questions, please call the office at . * Resume previous home medications unless otherwise instructed You may shower 5 days from the day of surgery. Let the soapy shower water run over the deric. Do not scrub or soak the incision. Things To Watch For: * Drainage from the incision site that occurs more than one week after your surgery. * Increased redness at the incision site. * Fever above 102 degrees Fahrenheit. * Unusual chest pain or shortness of breath. * Call [facility] at with any of the above problems Follow-Up Visit: Follow-up with Dr. Siu 2-3 weeks after your day of surgery. An appointment was probably scheduled when you signed-up for surgery in the office. If you have any questions call Office Instructions: More detailed instructions as well as Frequently Asked Questions were provided in a folder by our office when you signed-up for surgery. Please review these instructions when you get home. If you have any further questions or concerns, please feel free to call the office at [phone] Current Hospital Diet Patient's current hospital diet: Regular Diet Discharge Diet Recommended Diet: Regular Diet Procedures Procedures Performed: Left total shoulder arthroplasty Pending Studies Studies pending at discharge: no Laboratory Results Lipid Panel Test 03/31/17 07:14 Range/Units Triglycerides Level 44 0-150 mg/dl Cholesterol Level 102 0-200 mg/dl HDL Cholesterol 32 mg/dl Cholesterol/HDL Ratio 3.2 LDL Cholesterol, Calculated 61 mg/dl Medical Emergencies . Who to Call and When: Medical Emergencies: If at any time you feel your situation is an emergency, please call 911 immediately. . Non-Emergent Contact Non-Emergency issues call your: Surgeon Call Non-Emergent contact if: wound has increased drainage, wound has increased redness . "Provider Documentation" section prepared by Frederick Siu. . VTE Core Measure Inpt VTE Proph given/why not?: Treatment not indicated
[2017-04-18] MEDS: DOCUSATE SODIUM 100 MG CAP PO SCH (08:56)
[2017-04-18] MEDS: CALCIUM 600MG + VIT D 400 IU TAB PO SCH (08:56)
[2017-04-18] MEDS: METOPROLOL TARTRATE 25 MG TAB PO SCH (08:56)
[2017-04-18] MEDS ORDERED: IRBESARTAN 150 MG TAB PO SCH (09:00)
[2017-04-18] MEDS ORDERED: PANTOprazole SOD 40 MG TAB PO SCH (09:00)
[2017-04-18] MEDS ORDERED: MULTIVITAMIN TAB PO SCH (09:00)
--- NOTE | 2017-04-18 09:04 | Anesthesiology Progress Note ---
Anesthesia Post Op Note Date & Time Apr 18, 2017 at 09:03 Vital Signs Pain Intensity: 2.0 Vital Signs Past 12 Hours Date Time Temp Pulse Resp B/P (MAP) Pulse Ox O2 Delivery O2 Flow Rate FiO2 04/18/17 07:14 36.6 57 17 164/82 (109) 98 Room Air 04/18/17 07:06 Room Air 04/18/17 03:41 36.8 64 16 114/69 (84) 94 Room Air 04/17/17 23:50 Room Air 04/17/17 23:27 36.8 80 18 122/70 (87) 94 Room Air 04/17/17 22:13 95 Room Air 04/17/17 21:16 97 16 124/78 (93) 96 Nasal Cannula 2.0 Notes Mental Status: alert / awake / arousable, participated in evaluation Pt Amnestic to Procedure: Yes Nausea / Vomiting: adequately controlled Pain: adequately controlled Airway Patency, RR, SpO2: stable & adequate BP & HR: stable & adequate Hydration State: stable & adequate Anesthetic Complications: no major complications apparent
[2017-04-18 11:07] VITALS: BP 164/82; PULSE 57; TEMP 36.6; O2SAT 98
--- NOTE | 2017-04-18 11:07 | PROGRESS NOTE ---
DATE: 04/18/2017 CHIEF COMPLAINT: Status post left total shoulder arthroplasty, postop day #1. PROGRESS: Laci was seen and examined at bedside today. Overall, he is doing very well. He has very little pain in the shoulder. He had a little urinary retention overnight and needed a catheterization. He has urinary retention. He has no other complaints. PHYSICAL EXAMINATION: LEFT SHOULDER: The dressing is clean and dry and the drain is to suction. He is wearing a sling as instructed. His radial, median and ulnar nerves were checked and intact at his wrist. His axillary nerve was not checked yet. LABORATORY DATA: He has an H&H today of 12.1 and 35.2. His glucose is 126. His vital signs are all stable on room air and he is voiding a little bit on his own. IMPRESSION: Status post left total shoulder arthroplasty, postop day #1. PLAN: At this point, he is doing fairly well. The nursing staff can change the dressing and pull out the drain and I will discharge him home later today. [place]
--- NOTE | 2017-04-19 01:02 | DISCHARGE SUMMARY ---
DISCHARGE DIAGNOSIS: Primary osteoarthritis of the left shoulder. PROCEDURE: Left total shoulder arthroplasty on 04/17/[address] Frederick Siu. DISCHARGE INSTRUCTIONS: 1. Oxycodone 5-10 mg every 4 hours as needed for pain. 2. Xanax 0.5 mg at night. 3. Aspirin 81 mg daily. 4. Calcium 500 and vitamin D 1 tab twice a day. 5. Vytorin 10/20 mg half a tablet at night. 6. Avapro 150 mg daily. 7. Melatonin 3 mg at night. 8. Metoprolol 25 mg twice a day. 9. Protonix 20 mg daily. 10. Hytrin 1 mg at night. 11. Left arm sling for 3 weeks. 12. Follow up with Dr. Siu in 2 weeks. 13. Call the office of Dr. Siu with any questions or concerns. HOSPITAL COURSE: Laci is a pleasant 77-year-old male who presented to my office with complaints of chronic left shoulder pain. X-rays demonstrated primary osteoarthritis of the left shoulder. After failing conservative treatment, he elected to undergo a left total shoulder arthroplasty. On 04/17/2017, he arrived at [facility] and underwent a left shoulder replacement without complications. He had a general anesthetic and a left interscalene nerve block. Postoperatively, he was discharged to general orthopedic floor. His hospital course was uneventful. On postop day #1, his H&H was stable at 12.1 and 35.2. His pain was well controlled. He was having a little trouble with urinary retention and he needed a straight cath but then he was able to void some on his own afterwards. The nursing staff changed the dressing and pulled the drain. Physical therapy did hand, wrist, elbow and pendulum exercises with him. His pain was controlled and he was subsequently discharged to home with the above instructions.
== END 2017-04-18 11:35 | disposition home or self-care (01) | DRG 483 ==
LOC: C.ACU 09:16 → C.3E 11:50 → ENRESERV 15:07
PROVIDERS: ADMIT Orthopaedic Surgery; ATTEND Orthopaedic Surgery
PROC: 0RRK0JZ Replacement of Left Shoulder Joint with Synthetic Substitute, Open Approach (ICD-10-PCS; principal; 2017-04-17 11:45)
DX: M19.012 Primary osteoarthritis, left shoulder (principal); I10 Essential (primary) hypertension; E78.5 Hyperlipidemia, unspecified; Z79.899 Other long term (current) drug therapy; Z79.82 Long term (current) use of aspirin; Z85.46 Personal history of malignant neoplasm of prostate

== ENCOUNTER → 2017-07-10 | Outpatient (CLI) | payer BC ==
[~2017-07-10] MED LIST changes: -ACETAMINOPHEN 500 MG TAB PO SCH; -CEFAZOLIN 2000 MG/60 ML D5W 60 ML IV SCH; -FAMOTIDINE 20 MG TAB PO SCH; -GABAPENTIN 300 MG CAP PO SCH; -IBUP-1050 PO; -LACTATED RINGER'S 1000ML 1,000 ML IV SCH; -LACTATED RINGER'S 1000ML IV SCH; -ROPIVACAINE 0.5% 5 MG/ML 30 ML VIAL ONE; -ROPIVACAINE 5MG/ML 30 ML 150 MG, BUPIVACAINE/EPINEPHR 0.5% MPF 30 ML, KETOROLAC TROMETH... INFIL SCH; +RXC5 PO; -TRANEXAMIC ACID INJ 1,000 MG in SODIUM CHLORIDE 0.9% 100ML 100 ML IV SCH
--- NOTE | 2017-07-10 17:16 | DIAGNOSTIC IMAGING REPORT ---
ULTRASOUND LEFT LOWER EXTREMITY VENOUS CLINICAL HISTORY: Calf pain and swelling. COMPARISON STUDY: No priors. TECHNIQUE: Real-time, grayscale, and color Doppler sonography of the deep veins of the left lower extremity was performed from the inguinal crease to the calf. Compression and augmentation were utilized. FINDINGS: There is no sonographic evidence of deep venous thrombosis identified in the left lower extremity. The common femoral, superficial femoral, and popliteal veins are patent and normally compressible. The greater saphenous vein and the profunda femoris vein at the junction with the common femoral vein are clear. The visualized calf veins are patent. Occlusive superficial venous thrombus is identified in the mid calf at the area of tenderness. IMPRESSION: 1. There is no sonographic evidence of deep venous thrombosis identified in the left lower extremity. 2. Occlusive superficial venous thrombus is identified in the mid calf at the site of discomfort. Electronically signed by: Bladimir Gant M.D. 07/10/2017 5:15 PM Dictated Date/Time: 07/10/2017 5:14 PM
== END | disposition home or self-care (01) ==
LOC: C.ULTR 16:45
DX: R60.0 Localized edema (principal); M79.662 Pain in left lower leg; I82.812 Embolism and thrombosis of superficial veins of left lower extremity

== ENCOUNTER → 2017-07-21 | Outpatient (CLI) | payer BC ==
[2017-07-21 16:22] LABS: BASO % 0.7 %; BASO ABS # 0.03 K/uL (0-0.2); COMPLETE YES; EOS % 4.7 %; HEMATOCRIT 38.7 % (42-52); IG% 0.2 %; LYMPH ABS # 0.73 K/uL (1.2-3.4); MEAN CELL VOLUME 94.2 fL (80-100); MEAN CORPUSCULAR HEMOGLOBIN 32.6 pg (25-34); MEAN CORPUSCULAR HGB CONC 34.6 g/dl (32-36); MEAN PLATELET VOLUME 8.9 fL (7.4-10.4); MONO % 14.2 %; NEUT % 63.2 %; PLATELET COUNT 272 K/uL (130-400); RED BLOOD COUNT 4.11 M/uL (4.7-6.1)
[2017-07-21 16:47] LABS: ALT/SGPT 25 U/L (12-78); AST/SGOT 19 U/L (15-37)
== END | disposition home or self-care (01) ==
LOC: C.LAB 15:02
DX: D64.9 Anemia, unspecified (principal); I10 Essential (primary) hypertension

== ENCOUNTER → 2017-11-21 | Outpatient (CLI) | payer BC ==
[~2017-11-21] MED LIST changes: +ASPI-319 PO; -ASPI81TA21 PO
[2017-11-21 09:41] LABS: BASO % 0.6 %; BASO ABS # 0.03 K/uL (0-0.2); EOS % 4.5 %; EOS ABS # 0.21 K/uL (0-0.5); HEMATOCRIT 39.9 % (42-52); HEMOGLOBIN 14.3 g/dL (14.0-18.0); IG# 0.01 K/uL (0.00-0.02); LYMPH % 12.7 %; MEAN CELL VOLUME 93.9 fL (80-100); MEAN CORPUSCULAR HEMOGLOBIN 33.6 pg (25-34); MEAN CORPUSCULAR HGB CONC 35.8 g/dl (32-36); MEAN PLATELET VOLUME 8.8 fL (7.4-10.4); MONO % 12.7 %; NEUT % 69.3 %; NEUT ABS # 3.26 K/uL (1.4-6.5); PLATELET COUNT 245 K/uL (130-400); RED CELL DISTRIBUTION WIDTH SD 44.9 fL (36.4-46.3); WHITE BLOOD COUNT 4.71 K/uL (4.8-10.8)
[2017-11-21 10:04] LABS: ALT/SGPT 28 U/L (12-78); AST/SGOT 19 U/L (15-37); BLOOD UREA NITROGEN 21 mg/dl (7-18); CALCIUM 9.1 mg/dl (8.5-10.1); CARBON DIOXIDE 31 mmol/L (21-32); CHOLESTEROL 123 mg/dl (0-200); CREATININE 1.28 mg/dl (0.60-1.40); GLUCOSE 98 mg/dl (70-99); POTASSIUM 4.7 mmol/L (3.5-5.1); SODIUM 138 mmol/L (136-145)
[2017-11-21 10:08] LABS: LDL CHOLESTEROL CALCULATED 72 mg/dl
== END | disposition home or self-care (01) ==
LOC: C.LAB 06:40
DX: I25.10 Atherosclerotic heart disease of native coronary artery without angina pectoris (principal); E78.5 Hyperlipidemia, unspecified; D64.9 Anemia, unspecified

== ENCOUNTER 2018-02-24 10:32 | Emergency (ER) | payer BC ==
[~2018-02-24] VITALS: Ht 171.5 cm; Wt 77.2 kg
[2018-02-24 10:35] VITALS: TEMP 36.7; Ht 171.5 cm; Wt 77.2 kg
--- NOTE | 2018-02-24 11:07 | EMERGENCY ROOM VISIT NOTE ---
History Report prepared by Lester: Darlene Cerrato Under the Supervision of: Dr. Frederick Cerda M.D. First contact with patient: 10:54 Chief Complaint: CONSTIPATION Stated Complaint: CONSTIPATED WITH LIQUID COMING OUT Nursing Triage Summary: c/o constipation. Last BM was 02/22 History of Present Illness The patient is a 78 year old male who presents to the Emergency Room with complaints of constipation beginning yesterday. The patient states that he was referred from [facility]. He reports that he was just in [place] and that he had normal bowel movements. The patient states that yesterday he drove all night and started to feel constipated. The patient reports that he can feel that his stool is packed. The patient now reports having rectal pain. The patient denies having trouble urinating, but does report having some back pain. He states that his last bowel movement was 2 nights ago and he states that he normally goes twice per day. The patient reports a history of issues with constipation and anal fissures. He denies currently being on pain killers. The patient reports that he takes aspirin daily. Source of History: patient Onset: yesterday Position: other (rectum) Quality: other (constipation) Associated Symptoms: + back pain, No urinary symptoms Note: additional symptom: rectal pain Review of Systems See HPI for pertinent positives & negatives. A total of 10 systems reviewed and were otherwise negative. 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 Nurse's notes were reviewed and I agree with. Family History Hypertension Social History Smoking Status: Never Smoker Alcohol Use: none Drug Use: none Marital Status: Housing Status: lives with family Occupation Status: retired Current/Historical Medications Scheduled Alprazolam (Xanax), 0.5 MG PO HS Aspirin Enteric Coated (Ecotrin Or Generic), 81 MG PO QPM Calcium/Vitamin D (Os-Brad 500 Plus D), 1 TAB PO BID Ezetimibe/Simvastatin (Vytorin 10MG/20MG), 0.5 TABLET PO HS Fish Oil ([place]-3), 1 CAP PO BID Bzqovhhgvzm-Vyxkzndghnk-Rgm C- (Glucosamine Chondroitin), 1 TAB PO BID Hydrocortisone Acetate (Rectal (Anusol-Hc), 1 SUPP NH BID Irbesartan (Avapro), 150 MG PO QAM Melatonin (Kp Melatonin), 1 TAB PO HS Metoprolol Tartrate (Lopressor), 25 MG PO BID Multivitamin (Multivitamin), 1 TABLET PO QAM Omeprazole (Ra Omeprazole), 20 MG PO QPM Terazosin Hcl (Hytrin), 1 MG PO HS Allergies Coded Allergies: No Known Allergies (Verified , 02/24/18) Physical Exam Vital Signs Date Time Temp Pulse Resp B/P (MAP) Pulse Ox O2 Delivery O2 Flow Rate FiO2 02/24/18 14:56 78 18 119/90 96 02/24/18 12:56 78 20 175/89 97 Room Air 02/24/18 10:35 36.7 96 18 191/123 94 Room Air Physical Exam General: Non-ill appearing older male in no acute distress. HEENT: Normal cephalic atraumatic. Pupils are equal round and reactive to light. Extraocular movements are intact. Oropharynx is pink with moist mucous membranes. No swelling of the mouth lips or tongue. Neck: Supple with a midline trachea. No meningeal signs or stiffness, no JVD or bruits. No Stridor. Chest: Clear to auscultation bilaterally. No wheezes or rhonchi. No increased work of breathing. Heart: regular rate and rhythm. Abdomen: Soft nontender, nondistended without rebound guarding or rigidity. Extremities: No cyanosis clubbing or edema. No calf tenderness or assymetry Spine/Back. Non tender to palpation. No CVA tenderness Rectal: Normal rectal tone. Tender in rectal area. No bleeding. Skin: Good turgor without rashes. Neurologic exam: Cranial nerves two through 12 are intact. Motor and sensation are intact and symmetrical throughout. Medical Decision & Procedures ER Provider Diagnostic Interpretation: Radiology results as stated below per my review and radiologist interpretation: CT LUMBAR SPINE WITHOUT CT DOSE: CLINICAL HISTORY: Severe back pain. TECHNIQUE: Helical images were acquired in transverse plane. Reformatted sagittal and coronal images were reviewed. A dose lowering technique was utilized adhering to the principles of ALARA. CONTRAST: No contrast was administered COMPARISON STUDY: None. FINDINGS: L1-2 level: There is disc degeneration and minimal scarring. There is no significant spinal or foraminal stenosis L2-3 level: There is a minor circumferential disc bulge. There is no significant spinal or foraminal stenosis L3-4 level: There is a broad-based central disc protrusion with mild to moderate spinal stenosis. There is no significant foraminal narrowing L4-5 level: There is a circumferential disc bulge with mild spinal stenosis. There is facet joint arthropathy. There is no significant foraminal narrowing L5-S1 level: There is a mild circumferential disc bulge. There is no significant spinal or foraminal stenosis. No acute fractures or traumatic subluxations are visualized. IMPRESSION: 1. No acute fractures or traumatic subluxations identified 2. Multilevel spondylitic changes. 3. Mild spinal stenosis the L4-5 level, mild to moderate spinal stenosis at the L3-4 level. Electronically signed by: Ricky Rojas M.D. 02/24/2018 1:08 PM Dictated Date/Time: 02/24/2018 1:[address] SCAN OF THE ABDOMEN AND PELVIS WITHOUT CONTRAST CLINICAL HISTORY: Abdominal pain and constipation COMPARISON STUDY: No previous studies for comparison. TECHNIQUE: CT scan of the abdomen and pelvis was performed from the lung bases to the proximal femurs. Images are reviewed in the axial, sagittal, and coronal planes. IV contrast was not administered for this examination. A dose lowering technique was utilized adhering to the principles of ALARA. CT DOSE: 1071.28 mGy.cm FINDINGS: Lower chest: The heart is normal in size and configuration, without pericardial effusion. The lung bases and pleural spaces are clear. Liver: The unenhanced liver is normal in size, contour, and attenuation. There is no intrahepatic biliary ductal dilatation. Gallbladder: Unremarkable. Spleen: Normal in size and attenuation. Pancreas: Unremarkable. Adrenal glands: Unremarkable. Kidneys: No renal, ureteral, or bladder calculi are visualized. There is a 6.3 cm right renal cyst. There is a 23 mm hyperdense right renal mass. A dedicated renal CT scan or MRI could be obtained in follow-up to differentiate a solid renal mass from hyperdense cyst. Bowel: There is a calcification within the peritoneal fat adjacent to the stomach. There are no transition zones indicate bowel obstruction. There is no acute appendicitis. There is fecal retention. The rectum measures 7 cm in diameter. There is rectal wall thickening and infiltration the perirectal fat. The findings are suggestive of stercoral colitis. Peritoneum: There is no intraperitoneal free air or abdominal ascites. Vasculature: The abdominal aorta is normal in course and caliber. Adenopathy: None. Pelvic viscera: There is indwelling Long catheter. The prostate is enlarged measuring 58 mm. There are postsurgical changes of a hernia mesh repair. Skeletal structures: No destructive osseous lesions are seen. IMPRESSION: 1. No evidence of bowel obstruction. No evidence of free air 2. No renal, ureteral, or bladder calculi identified 3. Fecal retention. Distended rectum measuring 7 cm in diameter. Rectal wall thickening and infiltration of the perirectal fat. 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 4. Prostamegaly 5. Indeterminate 23 mm hyperdense right renal mass. A dedicated renal CT or MRI could be obtained in follow-up for further evaluation as deemed clinically appropriate Electronically signed by: Ricky Rojas M.D. 02/24/2018 1:02 PM Dictated Date/Time: 02/24/2018 12:54 PM Laboratory Results 02/24/18 12:15 Red Blood Count 4.52, Mean Corpuscular Volume 94.5, Mean Corpuscular Hemoglobin 33.6, Mean Corpuscular Hemoglobin Concent 35.6, Mean Platelet Volume 9.2, Neutrophils (%) (Auto) 91.5, Lymphocytes (%) (Auto) 5.3, Monocytes (%) (Auto) 2.9, Eosinophils (%) (Auto) 0.0, Basophils (%) (Auto) 0.1, Neutrophils # (Auto) 11.60, Lymphocytes # (Auto) 0.67, Monocytes # (Auto) 0.37, Eosinophils # (Auto) 0.00, Basophils # (Auto) 0.01 02/24/18 12:15 Test 02/24/18 12:15 02/24/18 12:35 White Blood Count 12.68 K/uL (4.8-10.8) Red Blood Count 4.52 M/uL (4.7-6.1) Hemoglobin 15.2 g/dL (14.0-18.0) Hematocrit 42.7 % (42-52) Mean Corpuscular Volume 94.5 fL (80-100) Mean Corpuscular Hemoglobin 33.6 pg (25-34) Mean Corpuscular Hemoglobin Concent 35.6 g/dl (32-36) Platelet Count 235 K/uL (130-400) Mean Platelet Volume 9.2 fL (7.4-10.4) Neutrophils (%) (Auto) 91.5 % Lymphocytes (%) (Auto) 5.3 % Monocytes (%) (Auto) 2.9 % Eosinophils (%) (Auto) 0.0 % Basophils (%) (Auto) 0.1 % Neutrophils # (Auto) 11.60 K/uL (1.4-6.5) Lymphocytes # (Auto) 0.67 K/uL (1.2-3.4) Monocytes # (Auto) 0.37 K/uL (0.11-0.59) Eosinophils # (Auto) 0.00 K/uL (0-0.5) Basophils # (Auto) 0.01 K/uL (0-0.2) RDW Standard Deviation 44.0 fL (36.4-46.3) RDW Coefficient of Variation 12.7 % (11.5-14.5) Immature Granulocyte % (Auto) 0.2 % Immature Granulocyte # (Auto) 0.03 K/uL (0.00-0.02) Anion Gap 6.0 mmol/L (3-11) Est Creatinine Clear Calc Drug Dose 54.4 ml/min Estimated GFR () 75.2 Estimated GFR (Non- 64.9 BUN/Creatinine Ratio 21.5 (10-20) Calcium Level 8.8 mg/dl (8.5-10.1) Total Bilirubin 1.0 mg/dl (0.2-1) Direct Bilirubin 0.3 mg/dl (0-0.2) Aspartate Amino Transf (AST/SGOT) 25 U/L (15-37) Alanine Aminotransferase (ALT/SGPT) 33 U/L (12-78) Alkaline Phosphatase 61 U/L (45-117) Total Protein 7.5 gm/dl (6.4-8.2) Albumin 4.2 gm/dl (3.4-5.0) Lipase 133 U/L (73-393) Prostate Specific Antigen 0.599 ng/ml (0.000-4.000) Urine Color DK YELLOW Urine Appearance CLEAR (CLEAR) Urine pH 6.5 (4.5-7.5) Urine Specific [place] 1.021 (1.000-1.030) Urine Protein NEG (NEG) Urine Glucose (UA) NEG (NEG) Urine Ketones NEG (NEG) Urine Occult Blood NEG (NEG) Urine Nitrite NEG (NEG) Urine Bilirubin NEG (NEG) Urine Urobilinogen NEG (NEG) Urine Leukocyte Esterase NEG (NEG) Laboratory studies as stated above per my review. Medications Administered Medications (Trade) Dose Ordered Sig/Albert Route Start Time Stop Time Status Last Admin Dose Admin Sodium Chloride 250 ml @ 999 mls/hr Q16M STAT IV 02/24/18 11:59 02/24/18 12:14 DC 02/24/18 12:56 999 MLS/HR Sodium Chloride 1,000 ml @ 100 mls/hr Q10H STAT IV 02/24/18 11:59 02/24/18 21:58 02/24/18 12:56 100 MLS/HR Miscellaneous (Soap Suds Enema) 1 ea ONE STAT NH 02/24/18 13:35 02/24/18 13:36 DC 02/24/18 14:02 1 EA Hydrocortisone Acetate (Anusol Hc Supp) 25 mg NOW STAT NH 02/24/18 14:50 02/24/18 14:51 DC 02/24/18 14:57 25 MG ED Course 1058: Past medical records reviewed. The patient was evaluated in room C10, and a complete history and physical examination were performed. 1125: Discussed the patient's case with Dr. Blood. He said that the patient could have an enema, but to be gentle. 1155: I checked on the patient. He said that he had a hard time urinating so we will do a CT scan instead of X-Rays. 1159: Ordered Sodium Chloride 1,000 ml @ 100 mls/hr IV, Sodium Chloride 250 ml @ 999 mls/hr IV. 1225: I checked on the patient and we are getting a urine on him. 1306: I checked on the patient and he has a long catheter in. He just returned from a CT scan. 1320: Discussed the patient's case with Dr. Markos GLYNN. He recommended manually disimpacting the patient and putting him on Anusol HC. 1334: I checked on the patient and he is resting comfortably. He agrees with the plan. I will order an enema. 1335: Ordered Soap Suds Enema 1 ea NH. 1409: The patient had an enema and is currently trying to have a bowel movement. 1425: I went to check on the patient. He had a large bowel movement and is feeling better. 1450: Ordered Anusol Hc Supp 25 mg NH. 1452: Upon reevaluation, the patient is resting. I discussed the results and treatment plan with him. He verbalized agreement of the treatment plan. The patient was discharged home. Medical Decision Differentials include, but are not limited to; constipation, prostate cancer complications, cauda equina syndrome, electrolyte and metabolic abnormalities, and infection. This patient comes in as described above appears placed in room C10. He is complaining of constipation since yesterday. He has some rectal pain has passing small amounts of liquid. He tried to mainly disimpact himself and so there is a large firm area he says is very tender in the rectum. He has no numbness or weakness in his legs. On exam, he has no numbness or weakness in his buttocks area. I did order x-rays. His told me that years ago they were told that after his external radiation that he should not any rectal procedures I did check this with Dr. Blood who felt that it was okay now but to try to be gentle. The patient and started complaining that he felt like he had a hard time urinating cut because it was painful mostly his rectal area so I did do a urine cath. With these symptoms I opted to do blood work and check his PSA as well as do CAT scans rather than x-rays. Certainly with a prostate cancer history although he tells me he is in remission with this I concerned about bony metastases. His urinalysis does not suggest a UTI. He has no significant electrolyte or metabolic abnormalities. His PSAs is within normal limit. CAT scans show rectal fecal impaction with some distention and Stercolitis. I did discuss this with Dr. Hudson the GI specialist on-call who recommended disimpacting him and started him on Anusol HC suppositories. he will need follow-up with a GI specialist to scope him eventually when the swelling goes down to ensure there is no other etiology for such as rectal cancer explains the patient is he was given a dose of Anusol HC to go home with as well as a prescription. I talked him about possibly doing an MRI. He did have some bladder issues which I think were likely just related to constipation. I told him that given the symptoms, we could do an MRI to rule out neurologic process. He has no numbness or weakness and has intact sensation in the buttocks area. He did declines this and says he feels better and just wants to go home. I did warn him to return if he has any new symptoms however. He was encouraged to return if: increasing pain, worsening of symptoms , any new problems or concerns. Medication Reconcilliation Current Medication List: was personally reviewed by me Blood Pressure Screening Patient's blood pressure: Elevated blood pressure Blood pressure disposition: Elevated BP felt to be situational Consults Time Called: 1109 Consulting Physician: Dr. Blood- Urology Returned Call: 1125 Discussed the patient's case with Dr. Blood. He said that the patient could have an enema, but to be gentle. Additional Consults: Time Called: 1316 Consulted Physician: Dr. Markos GLYNN Returned Call: 1320 Additional Comments: Discussed the patient's case with Dr. Markos GLYNN. He recommended manually disimpacting the patient and putting him on Anusol HC. Impression Primary Impression: Constipation Additional Impression: Proctitis Scribe Attestation The scribe's documentation has been prepared under my direction and personally reviewed by me in its entirety. I confirm that the note above accurately reflects all work, treatment, procedures, and medical decision making performed by me. Departure Information Dispostion Home / Self-Care Prescriptions Hydrocortisone Acetate (Rectal (ANUSOL-HC) 25 Mg Sup 1 SUPP NH BID for 7 Days, #14 SUPP Prov: Frederick Cerda M.D. 02/24/18 Referrals Pj Perez Jr,D.O. (PCP) Forms HOME CARE DOCUMENTATION FORM, IMPORTANT VISIT INFORMATION Patient Instructions My [facility] Additional Instructions Rest. Use MiraLAX or another stool softener Use Anusol suppositories twice a day Ensure your bowels are moving adequately Return to the ER if: increasing pain, problems with bowel or bladder function, numbness weakness, fever or chills, any new problems or concerns Follow-up with your doctor on Monday for recheck, you may need to be seen by a GI specialist to have a scope to look at your rectal inflammation once you are feeling better to rule out other problems Problem Qualifiers
[2018-02-24] MEDS ORDERED: SODIUM CHLORIDE 0.9% 1000ML 1,000 ML IV STA (11:59)
[2018-02-24] MEDS ORDERED: SODIUM CHLORIDE 0.9% 1000ML 250 ML IV STA (11:59)
[2018-02-24 12:27] LABS: BASO % 0.1 %; BASO ABS # 0.01 K/uL (0-0.2); HEMATOCRIT 42.7 % (42-52); HEMOGLOBIN 15.2 g/dL (14.0-18.0); IG# 0.03 K/uL (0.00-0.02); LYMPH % 5.3 %; LYMPH ABS # 0.67 K/uL (1.2-3.4); MEAN CELL VOLUME 94.5 fL (80-100); MEAN CORPUSCULAR HEMOGLOBIN 33.6 pg (25-34); MEAN CORPUSCULAR HGB CONC 35.6 g/dl (32-36); MEAN PLATELET VOLUME 9.2 fL (7.4-10.4); MONO % 2.9 %; MONO ABS # 0.37 K/uL (0.11-0.59); NEUT % 91.5 %; PLATELET COUNT 235 K/uL (130-400); RED CELL DISTRIBUTION WIDTH CV 12.7 % (11.5-14.5); WHITE BLOOD COUNT 12.68 K/uL (4.8-10.8)
[2018-02-24 12:54] LABS: ALBUMIN 4.2 gm/dl (3.4-5.0); CALCIUM 8.8 mg/dl (8.5-10.1); CREATININE 1.1 mg/dl (0.60-1.40); POTASSIUM 3.5 mmol/L (3.5-5.1); TOTAL PROTEIN 7.5 gm/dl (6.4-8.2)
--- NOTE | 2018-02-24 13:04 | DIAGNOSTIC IMAGING REPORT ---
CT SCAN OF THE ABDOMEN AND PELVIS WITHOUT CONTRAST CLINICAL HISTORY: Abdominal pain and constipation COMPARISON STUDY: No previous studies for comparison. TECHNIQUE: CT scan of the abdomen and pelvis was performed from the lung bases to the proximal femurs. Images are reviewed in the axial, sagittal, and coronal planes. IV contrast was not administered for this examination. A dose lowering technique was utilized adhering to the principles of ALARA. CT DOSE: 1071.28 mGy.cm FINDINGS: Lower chest: The heart is normal in size and configuration, without pericardial effusion. The lung bases and pleural spaces are clear. Liver: The unenhanced liver is normal in size, contour, and attenuation. There is no intrahepatic biliary ductal dilatation. Gallbladder: Unremarkable. Spleen: Normal in size and attenuation. Pancreas: Unremarkable. Adrenal glands: Unremarkable. Kidneys: No renal, ureteral, or bladder calculi are visualized. There is a 6.3 cm right renal cyst. There is a 23 mm hyperdense right renal mass. A dedicated renal CT scan or MRI could be obtained in follow-up to differentiate a solid renal mass from hyperdense cyst. Bowel: There is a calcification within the peritoneal fat adjacent to the stomach. There are no transition zones indicate bowel obstruction. There is no acute appendicitis. There is fecal retention. The rectum measures 7 cm in diameter. There is rectal wall thickening and infiltration the perirectal fat. The findings are suggestive of stercoral colitis. Peritoneum: There is no intraperitoneal free air or abdominal ascites. Vasculature: The abdominal aorta is normal in course and caliber. Adenopathy: None. Pelvic viscera: There is indwelling Gonzalez catheter. The prostate is enlarged measuring 58 mm. There are postsurgical changes of a hernia mesh repair. Skeletal structures: No destructive osseous lesions are seen. IMPRESSION: 1. No evidence of bowel obstruction. No evidence of free air 2. No renal, ureteral, or bladder calculi identified 3. Fecal retention. Distended rectum measuring 7 cm in diameter. Rectal wall thickening and infiltration of the perirectal fat. 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 4. Prostamegaly 5. Indeterminate 23 mm hyperdense right renal mass. A dedicated renal CT or MRI could be obtained in follow-up for further evaluation as deemed clinically appropriate Electronically signed by: Ricky Rojas M.D. 02/24/2018 1:02 PM Dictated Date/Time: 02/24/2018 12:54 PM
--- NOTE | 2018-02-24 13:10 | DIAGNOSTIC IMAGING REPORT ---
CT LUMBAR SPINE WITHOUT CT DOSE: CLINICAL HISTORY: Severe back pain. TECHNIQUE: Helical images were acquired in transverse plane. Reformatted sagittal and coronal images were reviewed. A dose lowering technique was utilized adhering to the principles of ALARA. CONTRAST: No contrast was administered COMPARISON STUDY: None. FINDINGS: L1-2 level: There is disc degeneration and minimal scarring. There is no significant spinal or foraminal stenosis L2-3 level: There is a minor circumferential disc bulge. There is no significant spinal or foraminal stenosis L3-4 level: There is a broad-based central disc protrusion with mild to moderate spinal stenosis. There is no significant foraminal narrowing L4-5 level: There is a circumferential disc bulge with mild spinal stenosis. There is facet joint arthropathy. There is no significant foraminal narrowing L5-S1 level: There is a mild circumferential disc bulge. There is no significant spinal or foraminal stenosis. No acute fractures or traumatic subluxations are visualized. IMPRESSION: 1. No acute fractures or traumatic subluxations identified 2. Multilevel spondylitic changes. 3. Mild spinal stenosis the L4-5 level, mild to moderate spinal stenosis at the L3-4 level. Electronically signed by: Ricky Rojas M.D. 02/24/2018 1:08 PM Dictated Date/Time: 02/24/2018 1:06 PM
[2018-02-24] MEDS ORDERED: SOAP SUDS ENEMA PR STA (13:35)
[2018-02-24] MEDS ORDERED: HYDR25SU20 PR (14:47)
[2018-02-24] MEDS ORDERED: HYDROCORTISONE ACETATE 25 MG SUPP PR STA (14:50)
[2018-02-24 14:56] VITALS: BP 119/90; PULSE 78; O2SAT 96
== END 2018-02-24 15:04 | disposition home or self-care (01) ==
LOC: C.EDB 10:33 → C.EDC 15:04
DX: K59.00 Constipation, unspecified (principal); K62.89 Other specified diseases of anus and rectum; F41.9 Anxiety disorder, unspecified; I25.10 Atherosclerotic heart disease of native coronary artery without angina pectoris; K21.9 Gastro-esophageal reflux disease without esophagitis; E78.5 Hyperlipidemia, unspecified; I10 Essential (primary) hypertension; N40.0 Benign prostatic hyperplasia without lower urinary tract symptoms; F43.10 Post-traumatic stress disorder, unspecified; F17.210 Nicotine dependence, cigarettes, uncomplicated; M19.019 Primary osteoarthritis, unspecified shoulder; Z82.49 Family history of ischemic heart disease and other diseases of the circulatory system; Z79.82 Long term (current) use of aspirin; Z79.899 Other long term (current) drug therapy; Z85.46 Personal history of malignant neoplasm of prostate

== ENCOUNTER 2024-05-14 16:34 | Observation (INO) ==
[2024-05-14 17:25] LABS: Basophils # (auto) 0.04 K/uL (0.00-0.20); Basophils % (auto) 0.7 %; Eosinophils # (auto) 0.17 K/uL (0.00-0.50); Eosinophils % (auto) 2.9 %; Hematocrit (blood only) 35.1 % (42.0-52.0); Hemoglobin 11.6 g/dl (14.0-18.0); Immature Granulocytes # (auto) 0.01 K/uL (0.01-0.20); Immature Granulocytes % (auto) 0.2 %; Lymphocytes # (auto) 0.65 K/uL (1.20-3.40); Lymphocytes % (auto) 10.9 %; Mean Corpuscular Volume 93.9 fL (80.0-100.0); Mean Platelet Volume 8.5 fL (9.4-12.4); Monocytes # (auto) 0.72 K/uL (0.11-0.59); Monocytes % (auto) 12.1 %; Neutrophils # (auto) 4.37 K/uL (1.40-6.50); Neutrophils % (auto) 73.2 %; Platelet Count 326 K/uL (130-400); RDW Coefficient of Variation 13.8 % (11.5-14.5); RDW Standard Deviation 47.1 fL (36.4-46.3); Red Blood Count 3.74 M/uL (4.70-6.10); White Blood Count 5.96 K/ul (4.8-10.8)
[2024-05-14 17:34] LABS: Albumin Globulin Ratio 1.4 (0.9-2); Albumin Level 4.2 gm/dl (3.4-5.0); BUN Creatinine Ratio 23.4 (10-20); Bilirubin,Total 0.6 mg/dl (0.2-1.0); Calcium 9.6 mg/dl (8.6-10.3); Creatinine Clr Calc Pharmacy 56.6 ml/min; Globulin 2.9 gm/dl (2.5-4.0); Potassium 4.3 mmol/L (3.5-5.1); Total Protein 7.1 gm/dl (6.0-8.3)
[2024-05-14 17:37] LABS: INR 1.1 (0.9-1.1); Partial Thromboplastin Time 27 Seconds (21-31); Prothrombin Time 11.9 Seconds (9.0-12.0)
[2024-05-14 17:40] LABS: Troponin I High Sensitivity 60.1 pg/ml (0-20)
[2024-05-14] MEDS: ASPIRIN CHEW 324 MG PO STA (18:04)
[2024-05-14 19:23] LABS: Troponin I High Sensitivity 56.6 pg/ml (0-20)
--- NOTE | 2024-05-14 19:51 | XRay Report ---
SINGLE VIEW CHEST CLINICAL HISTORY: Atypical chest pain. FINDINGS: 2 AP, portable, upright chest radiographs are compared to study dated 04/20/2023. The there is enlargement noted atherosclerotic calcification of the thoracic aorta. The pulmonary vasculature i s not congested. Chronic interstitial thickening is similar to previous. There is mild bibasilar scar ring/atelectasis. No airspace consolidation or large pleural effusion is identified. No pneumothorax is seen. A skin fold projects over the right apex. The skeletal structures are osteopenic. There are chronic/healed right-sided rib fractures. Arthritic change is seen in the right shoulder. A left shou lder arthroplasty is in place. IMPRESSION: Cardiomegaly with no active disease in the chest. ACT 112: Negative or not required by law. Electronically signed by: Bladimir Gant M.D. 05/14/2024 7:50 PM
--- NOTE | 2024-05-14 20:12 | History & Physical Report ---
Date of Service May 14, 2024 Assessment & Plan (1) Exertional chest pain: Plan: 84yo male with history of non-obstructive CAD presenting with several weeks of exertional chest discomfort, dyspnea and decreased exercise tolerance. Patient presently without chest pain. Notes that he has not had pain since arriving to the ER. His troponin is mildly elevated 60.1 --> 56.6. EKG with pre-existing LBBB - does appear different than prior study, however -Observation to medical with telemetry -Repeat troponin -Check 2D echocardiogram -Cardiology consultation appreciated -Will keep patient NPO after midnight in case cardiac catheterization is pursued in the AM -Continue ASA 81mg po daily -Continue Crestor 40 mg po daily -Continue Carvedilol - patient reports taking only 3.125mg po once daily (2) CAD (coronary artery disease): Plan: -Continue ASA 81mg po daily -Continue Rosuvastatin 40mg po daily -Continue Carvedilol -Losartan while inpatient - patient is on Irbesartan 150mg po daily outpatient -Cardiology consultation appreciated (3) Hypertension: Plan: Mildly elevated blood pressure in the ER. -Continue Carvedilol - patient reports taking 3.125mg po daily (can confirm with [facility] notes) -Continue Hydralazine. Patient is prescribed 10mg po daily but reports he is taking this up to three times daily and at times in the middle of the night. -Losartan 50mg po daily while inpatient - patient takes Irbesartan 150mg po daily outpatient -Patient reports he is no longer taking the Amlodipine Plan Chronic Medical Conditions: BPH: Chronic, stable -Cotninue Flomax 0.4mg po daily -Bladder scan and straight cath as needed GERD: Chronic, stable -Protonix 40mg po daily while inpatient - patient takes Omeprazole at home Restless Leg Syndrome: Chronic, stable -Continue Ropinirole F/E/N - saline lock. electrolytes WNL. NPO after midnight Ppx - Lovenox for DVT prophylaxis Code - Full per discussion with patient on admission Dispo -Observation to medical with telemetry History of Present Illness Chief Complaint: exertional chest pain Primary Care Provider: Karen Wesley DO Laci Banerjee is a pleasant 84yo male with history of HTN, non-obstructive CAD presenting with exertional chest pain. Patient follows with [facility], Dr. Dent. Over the last couple of weeks he has noted some exertional substernal chest discomfort - mainly with walking up hills outside. His pain is sharp and pressure at time. He has had worsening PARSONS and decreased exercise tolerance as well. His symptoms are somewhat improved with taking deep breaths. Otherwise denies fever, chills, palpitations, diaphoresis, nausea, vomiting, abdominal pain. Patient reports history of non-obstructive coronary disease per cardiac catheterization 2 years ago. No stents in place. In the ER patient afebrile, HD stable. Chest pain free ER Course: ASA 324mg Allergies Allergy/AdvReac Type Severity Reaction Status Date / Time No Known Allergies Allergy Verified 04/20/23 23:27 Home Medications Medication Instructions Recorded Confirmed Type aspirin 81 mg tablet,delayed 81 mg PO DAILY 05/06/21 04/20/23 History release (Adult Low Dose Aspirin) melatonin 5 mg capsule 5 mg PO HS 05/06/21 05/14/24 History multivitamin 1 tab PO DAILY 05/06/21 05/14/24 History omega 9-nkx-wyz-fish oil 1,000 mg 1 cap PO BID 05/06/21 05/14/24 History (120 mg-180 mg) capsule (Fish Oil) omeprazole 20 mg capsule,delayed 20 mg PO DAILY 05/06/21 05/14/24 History release tamsulosin 0.4 mg capsule (Flomax) 0.4 mg PO DAILY 05/06/21 05/14/24 History amlodipine 5 mg tablet 5 mg PO .DAILY AT NOON 04/20/23 04/20/23 History aspirin 81 mg tablet,delayed 81 mg PO QPM 04/20/23 05/14/24 History release calcium 600 mg (as 1 tab PO BID 04/20/23 05/14/24 History carbonate)-vitamin D3 10 mcg (400 unit) tablet (Calcium 600 + D(3)) carvedilol 12.5 mg tablet 12.5 mg PO BID 04/20/23 04/20/23 History fish, borage, flaxseed oils-omega 1 cap PO QPM 04/20/23 04/20/23 History 3,6,9 comb no.1 1,200 mg capsule ([place] 3-6-9) glucosamine 750 my-hkexkycbfw-cyk 1 tab PO BID 04/20/23 05/14/24 History no.1 625 mg-C 30 iz-oqpo-ffer tablet (Glucosamine-Chondroitin 3X) irbesartan 300 mg tablet 150 mg PO DAILY 04/20/23 05/14/24 History multivitamin 1 tab PO QAM 04/20/23 04/20/23 History nitroglycerin 0.4 mg sublingual 0.4 mg sublingual UD PRN Chest Pain 04/20/23 04/20/23 History tablet omega 4-ipv-cvn-fish oil 1,200 mg 1,200 cap PO .DAILY AT NOON 04/20/23 04/20/23 History (144 mg-216 mg) capsule (Fish Oil) rosuvastatin 40 mg tablet 40 mg PO DAILY 04/20/23 05/14/24 History carvedilol 3.125 mg tablet 3.125 mg PO DAILY 05/14/24 05/14/24 History hydralazine 10 mg tablet 10 mg PO DAILY 05/14/24 05/14/24 History ropinirole 1 mg tablet 1 mg PO HS 05/14/24 05/14/24 History Past Med/Surg History Problem List (Updated 05/14/24 @ 23:43 by Alma Rosa Dill DO) CAD (coronary artery disease) Exertional chest pain Elevated troponin (Acute) Chest pain (Acute) Stroke-like symptoms (Acute) Complete left bundle branch block (LBBB) (Acute) Myofascial pain Lumbago Hx of lumbosacral spine surgery Osteoarthritis, knee Olecranon bursitis Spinal stenosis of lumbar region Lumbar facet joint syndrome Multinodular goiter (nontoxic) Hypertension (Acute) Medical History Osteoarthritis of shoulder Fracture of fifth metatarsal bone of right foot Pneumothorax Rib fractures Social History Smoking Status: Former smoker Second Hand Exposure: No; Do You Dip or Chew Tobacco: No; Hx Alcohol Use: Yes Alcohol type: beer Hx Substance Use: No Preferred Language: Faroese Communication Ability: Effective Visual Impairment: No Limitations Hearing Ability: Normal Director Of Marketing Required: No Beliefs That Will Affect Care: None marital status: Current Living Situation: Spouse current occupational status: retired Feels Safe at Home: Yes Assistive Devices: Glasses Review of Systems Review of Systems: All systems reviewed & are unremarkable except as noted in HPI & below Physical Exam Physical Exam: General: patient resting comfortably, NAD, non-toxic in appearance, AA&O x 4 Skin: warm, dry, intact, no rashes or lesions HEENT: NC/AT, PERRL, EOMI, anicteric sclera, conjunctiva without injection, external ear normal to inspection and nontender, nares patent, moist mucus membranes, dentition intact, no oropharyngeal lesions, neck supple, trachea midline, no LAD, no thyromegaly, no JVD Heart: +S1/S2, regular, no m/r/g Lungs: equal air entry bilaterally, no rales/rhonchi/wheezes Abd: +BS, soft, NT/ND, no masses/organomegaly/ascites Ext: warm, 2+ pulses in UE/LE bilaterally, no clubbing/cyanosis or edema Neuro: nonfocal, patient AA&O x 4, speech intact, no facial droop, moving all e xtremities on command with equal strength 5/5 Results & Data Results & Data Vital Signs (Past 12 Hours) Vital Signs Temp Pulse Pulse Resp BP BP Pulse Ox 05/14/24 18:34 66 20 163/96 H 99 05/14/24 18:05 73 18 136/96 99 05/14/24 17:51 75 05/14/24 16:56 74 16 99 05/14/24 16:56 75 19 152/85 H 97 05/14/24 16:56 98 05/14/24 16:39 36.5 C 72 18 161/93 H 97 O2 Del Method 05/14/24 18:34 Room Air 05/14/24 18:05 Room Air 05/14/24 17:51 05/14/24 16:56 Room Air 05/14/24 16:56 Room Air 05/14/24 16:56 Room Air 05/14/24 16:39 Room Air Laboratory Results Laboratory Results WBC 5.96 K/ul (4.8-10.8) 05/14/24 16:47 RBC 3.74 M/uL (4.70-6.10) L 05/14/24 16:47 Hgb 11.6 g/dl (14.0-18.0) L 05/14/24 16:47 Hct 35.1 % (42.0-52.0) L 05/14/24 16:47 MCV 93.9 fL (80.0-100.0) 05/14/24 16:47 MCH 31.0 pg (25.0-34.0) 05/14/24 16:47 MCHC 33.0 g/dL (32.0-36.0) 05/14/24 16:47 RDW Std Deviation 47.1 fL (36.4-46.3) H 05/14/24 16:47 RDW Coeff of Pranav 13.8 % (11.5-14.5) 05/14/24 16:47 Plt Count 326 K/uL (130-400) 05/14/24 16:47 MPV 8.5 fL (9.4-12.4) L 05/14/24 16:47 Immature Gran % (Auto) 0.2 % 05/14/24 16:47 Neut % (Auto) 73.2 % 05/14/24 16:47 Lymph % (Auto) 10.9 % 05/14/24 16:47 [place] % (Auto) 12.1 % 05/14/24 16:47 Eos % (Auto) 2.9 % 05/14/24 16:47 Baso % (Auto) 0.7 % 05/14/24 16:47 Neut # (Auto) 4.37 K/uL (1.40-6.50) 05/14/24 16:47 Lymph # (Auto) 0.65 K/uL (1.20-3.40) L 05/14/24 16:47 [place] # (Auto) 0.72 K/uL (0.11-0.59) H 05/14/24 16:47 Eos # (Auto) 0.17 K/uL (0.00-0.50) 05/14/24 16:47 Baso # (Auto) 0.04 K/uL (0.00-0.20) 05/14/24 16:47 Immature Gran # (Auto) 0.01 K/uL (0.01-0.20) 05/14/24 16:47 PT 11.9 Seconds (9.0-12.0) 05/14/24 16:47 INR 1.1 (0.9-1.1) 05/14/24 16:47 APTT 27 Seconds (21-31) 05/14/24 16:47 PTT Ratio 1.0 05/14/24 16:47 Sodium 138 mmol/L (136-145) 05/14/24 16:47 Potassium 4.3 mmol/L (3.5-5.1) 05/14/24 16:47 Chloride 103 mmol/L (98-107) 05/14/24 16:47 Carbon Dioxide 27 mmol/L (21-32) 05/14/24 16:47 Anion Gap 8 (3-11) 05/14/24 16:47 BUN 22 mg/dl (6-23) 05/14/24 16:47 Creatinine 0.94 mg/dl (0.6-1.4) 05/14/24 16:47 Est Cr Clr Drug Dosing 56.6 ml/min 05/14/24 16:47 eGFR 80.94 05/14/24 16:47 BUN/Creatinine Ratio 23.4 (10-20) H 05/14/24 16:47 Glucose 123 mg/dl (70-99(Fasting)) H 05/14/24 16:47 Calcium 9.6 mg/dl (8.6-10.3) 05/14/24 16:47 Magnesium 1.9 mg/dl (1.7-2.4) 05/14/24 18:36 Total Bilirubin 0.6 mg/dl (0.2-1.0) 05/14/24 16:47 AST 24 U/L (13-39) 05/14/24 16:47 ALT 18 U/L (7-52) 05/14/24 16:47 Alkaline Phosphatase 74 U/L (34-104) 05/14/24 16:47 Troponin I High Sens 56.6 pg/ml (0-20) H* 05/14/24 18:36 Total Protein 7.1 gm/dl (6.0-8.3) 05/14/24 16:47 Albumin 4.2 gm/dl (3.4-5.0) 05/14/24 16:47 Globulin 2.9 gm/dl (2.5-4.0) 05/14/24 16:47 Albumin/Globulin Ratio 1.4 (0.9-2) 05/14/24 16:47 Impressions Chest X-Ray 05/14/24 16:41 SINGLE VIEW CHEST CLINICAL HISTORY: Atypical chest pain. FINDINGS: 2 AP, portable, upright chest radiographs are compared to study dated 04/20/2023. The there is enlargement noted atherosclerotic calcification of the thoracic aorta. The pulmonary vasculature is not congested. Chronic interstitial thickening is similar to previous. There is mild bibasilar scarring/atelectasis. No airspace consolidation or large pleural effusion is identified. No pn eumothorax is seen. A skin fold projects over the right apex. The skeletal structures are osteopenic. There are chronic/healed right-sided rib fractures. Arthritic change is seen in the right shoulder. A left shoulder arthroplasty is in place. IMPRESSION: Cardiomegaly with no active disease in the chest. ACT 112: Negative or not required by law. Electronically signed by: Bladimir Gant M.D. 05/14/2024 7:50 PM ECG Additional Comments: EKG with NSR at 73bpm, left axis deviation, ZW=699, RXO=299, SNc=773, LBBB present. Does appear to have some increased discordance in V2 and V3 when compared to prior EKG from 04/20/23 Code Status & VTE Plan VTE Prophylaxis Plan VTE Prophylaxis will be ordered: Yes PG Care Time/CCT Total # of Minutes Spent Total Time Spent with Patient: Total time spent is greater than 50% in coordination of care (as documented) at patient's floor/unit and/or counseling patient: Coding Level of Care Code 03496 INT INP/OBS CARE 2/55MIN Diagnoses Exertional chest pain R07.9 CAD (coronary artery disease) I25.10 Hypertension I10
--- NOTE | 2024-05-14 21:21 | Emergency Department Note ---
Impression & Plan Chest pain, Complete left bundle branch block (LBBB), Elevated troponin ED Provider Note NAME: ANN-MARIE ORDRIGES AGE: 84 SEX: Male INFORMANT: Patient ED PROVIDER(S): Urbano Morgan MD CHIEF COMPLAINT: Chest pain PLAN: Disposition: admitted Outpatient prescription management: none Referral: none MEDICAL DECISION MAKING: patient presented because of chest pain. He was pain-free at the time of evaluation. ECG showed a left bundle branch block. There was moderate discordance noted but no clear Sgarbossa criteria. Chest x-ray was unremarkable. Patient CBC and chemistries were unremarkable. Cardiac monitoring did not reveal any significant dysrhythmia. His cardiac troponin was mildly elevated. In light of his history and description of this type of chest pain further management in the hospital is necessary. consultation was made with Dr. Alma Rosa Dill of the [facility] service. Patient was evaluated in the ER for further management. Care/management discussed with: , technical program manager Level of care consideration(s): After review of the information above and other included data, I feel the patient requires escalation of care to admission Triage Nursing notes: reviewed and agree them. Vital Signs: reviewed and remarkable for no significant abnormalities Additional History obtained from: none Chronic Medical/Social Conditions affecting care: CAD Prior/ Outside/ External records reviewed: none Differential Diagnosis: Cardiac ischemia, aortic dissection, pulmonary embolism, pneumothorax, pneumonia, pericarditis, myocarditis, esophageal rupture, GERD, cholecystitis, pancreatitis, musculoskeletal, as well as other pathologies. Diagnostics, independently interpreted by me: ECG: twelve-lead ECG reveals a normal sinus rhythm at 73 bpm. Left bundle branch block present. There is moderate discordance noted in V3 but no clear Sgarbossa criteria. When compared to ECG of 20 April 2023 there is no significant change. Cardiac Monitoring: Cardiac monitoring ordered by me: The patient was placed on continuous cardiac monitoring and observed. It revealed a normal sinus rhythm at 85 beats per minute without ectopy or evidence of dysrhythmia. Medical decision rules: none Imaging studies: chest x-ray. Findings: A chest x-ray was performed and revealed no pneumothorax, effusion, infiltrate, pulmonary edema, free air under the diaphragm, or wide mediastinum. Impression: No acute disease. HPI: 84 year old Male arrives for evaluation of Chest pain.This started Over the last week and a half and is described as exertional. The patient also notes the following associated symptoms, none. Chest pain is left-sided. The patient has taken no medication for relieving factors. Current pain is rated as 0/10. patient has pain was a 2 out of 10. Given his cardiac history he was concerned and came to the ER for evaluation. Pt denies LOC, headache, fevers, chills, diaphoresis, visual changes, neck pain, breathing difficulties, nausea, vomiting, abdominal pain, back pain, melena, hematochezia, urinary symptoms, numbness, weakness, lymphadenopathy, rash, or other complaints. PAST MEDICAL HISTORY: See Below, CAD PAST SURGICAL HISTORY: See Below, SOCIAL HISTORY: See Below, HOME MEDICATIONS: See Below ALLERGIES: See Below VITALS: See Below PHYSICAL EXAMINATION: GENERAL: Awake, alert, well-appearing, in no distress HENT: Normocephalic, atraumatic. Oropharynx unremarkable. EYES: Normal conjunctiva. Sclera non-icteric. NECK: Inspection normal. Non-tender. Supple. No nuchal rigidity. FROM. No masses. RESPIRATORY: Clear to auscultation. No wheezes. No rales. Normal respiratory effort. CARDIAC: Normal rate. Normal rhythm. No murmurs. No rubs. Extremities warm and well perfused. Pulses equal. No JVD. GI: Soft, non-distended. No tenderness to palpation. No rebound or guarding. No masses. RECTAL: Deferred. MUSCULOSKELETAL: Atraumatic. Chest examination reveals no tenderness. The back is symmetrical on inspection without obvious abnormality. There is no CVA tenderness to palpation. No joint edema. LOWER EXTREMITIES: Calves are equal size bilaterally and non-tender. No edema. No discoloration. NEURO: Normal sensorium. No sensory or motor deficits noted. SKIN: No rash or jaundice noted. PROCEDURES: none CRITICAL CARE: none OBSERVATION NOTE: none Past Med/Surg History Problem List (Updated 05/14/24 @ 21:21 by Urbano Morgan MD) Elevated troponin (Acute) Chest pain (Acute) Stroke-like symptoms (Acute) Complete left bundle branch block (LBBB) (Acute) Myofascial pain Lumbago Hx of lumbosacral spine surgery Osteoarthritis, knee Olecranon bursitis Spinal stenosis of lumbar region Lumbar facet joint syndrome Multinodular goiter (nontoxic) Hypertension (Acute) Medical History Osteoarthritis of shoulder Fracture of fifth metatarsal bone of right foot Pneumothorax Rib fractures Social History Smoking Status: Former smoker Second Hand Exposure: No; Do You Dip or Chew Tobacco: No; Hx Alcohol Use: Yes Alcohol type: beer Hx Substance Use: No Preferred Language: Colombian Communication Ability: Effective Visual Impairment: No Limitations Hearing Ability: Normal Melter Assistant Required: No Beliefs That Will Affect Care: None marital status: Current Living Situation: Spouse current occupational status: retired Feels Safe at Home: Yes Assistive Devices: Glasses Allergies Allergies Allergy/AdvReac Type Severity Reaction Status Date / Time No Known Allergies Allergy Verified 04/20/23 23:27 Home Meds Home Medications Medication Instructions Recorded Confirmed aspirin 81 mg tablet,delayed 81 mg PO DAILY 05/06/21 04/20/23 release (Adult Low Dose Aspirin) melatonin 5 mg capsule 5 mg PO HS 05/06/21 05/14/24 multivitamin 1 tab PO DAILY 05/06/21 05/14/24 omega 8-gqi-pch-fish oil 1,000 mg 1 cap PO BID 05/06/21 05/14/24 (120 mg-180 mg) capsule (Fish Oil) omeprazole 20 mg capsule,delayed 20 mg PO DAILY 05/06/21 05/14/24 release tamsulosin 0.4 mg capsule (Flomax) 0.4 mg PO DAILY 05/06/21 05/14/24 amlodipine 5 mg tablet 5 mg PO .DAILY AT NOON 04/20/23 04/20/23 aspirin 81 mg tablet,delayed 81 mg PO QPM 04/20/23 05/14/24 release calcium 600 mg (as 1 tab PO BID 04/20/23 05/14/24 carbonate)-vitamin D3 10 mcg (400 unit) tablet (Calcium 600 + D(3)) carvedilol 12.5 mg tablet 12.5 mg PO BID 04/20/23 04/20/23 fish, borage, flaxseed oils-omega 1 cap PO QPM 04/20/23 04/20/23 3,6,9 comb no.1 1,200 mg capsule (Morton 3-6-9) glucosamine 750 pi-bjbfpofieo-nem 1 tab PO BID 04/20/23 05/14/24 no.1 625 mg-C 30 dx-sfrc-xsnw tablet (Glucosamine-Chondroitin 3X) irbesartan 300 mg tablet 150 mg PO DAILY 04/20/23 05/14/24 multivitamin 1 tab PO QAM 04/20/23 04/20/23 nitroglycerin 0.4 mg sublingual 0.4 mg sublingual UD PRN Chest Pain 04/20/23 04/20/23 tablet omega 4-kjl-pgd-fish oil 1,200 mg 1,200 cap PO .DAILY AT NOON 04/20/23 04/20/23 (144 mg-216 mg) capsule (Fish Oil) rosuvastatin 40 mg tablet 40 mg PO DAILY 04/20/23 05/14/24 carvedilol 3.125 mg tablet 3.125 mg PO DAILY 05/14/24 05/14/24 hydralazine 10 mg tablet 10 mg PO DAILY 05/14/24 05/14/24 ropinirole 1 mg tablet 1 mg PO HS 05/14/24 05/14/24 Results & Data (ED) Vital Signs Vital Signs - 24 hr 05/14/24 16:39 05/14/24 16:56 05/14/24 16:56 Temperature 36.5 C Temperature Source Temporal Artery Scan Pulse Rate 72 Pulse Rate [Apical] 75 Respiratory Rate 18 19 Respiratory Effort / Characteristics Non-Labored Spontaneous Non-Labored Spontaneous Respiratory Depth Normal Normal Respiratory Pattern Regular Blood Pressure 161/93 H Blood Pressure [Right Arm] 152/85 H Blood Pressure Mean 115 Blood Pressure Mean [Right Arm] 107 Blood Pressure Position Sitting Blood Pressure Position [Right Arm] Semi-fowlers Pulse Oximetry 97 98 97 Oxygen Delivery Method Room Air Room Air Room Air Sepsis Recent Fever Within 48 Hours No Sepsis New/Unexplained Change in Mental Status No Sepsis Action Taken by Nursing No Action Required 05/14/24 16:56 05/14/24 17:51 05/14/24 18:05 Temperature Temperature Source Pulse Rate 74 75 Pulse Rate [Apical] 73 Respiratory Rate 16 18 Respiratory Effort / Characteristics Non-Labored Spontaneous Respiratory Depth Normal Respiratory Pattern Blood Pressure Blood Pressure [Right Arm] 136/96 Blood Pressure Mean Blood Pressure Mean [Right Arm] 109 Blood Pressure Position Blood Pressure Position [Right Arm] Pulse Oximetry 99 99 Oxygen Delivery Method Room Air Room Air Sepsis Recent Fever Within 48 Hours Sepsis New/Unexplained Change in Mental Status Sepsis Action Taken by Nursing 05/14/24 18:34 05/14/24 20:59 05/14/24 21:10 Temperature Temperature Source Pulse Rate 77 Pulse Rate [Apical] 66 85 Respiratory Rate 20 18 Respiratory Effort / Characteristics Non-Labored Spontaneous Non-Labored Respiratory Depth Normal Normal Respiratory Pattern Regular Blood Pressure Blood Pressure [Right Arm] 163/96 H 141/86 H Blood Pressure Mean Blood Pressure Mean [Right Arm] 118 104 Blood Pressure Position Blood Pressure Position [Right Arm] Semi-fowlers Pulse Oximetry 99 99 Oxygen Delivery Method Room Air Room Air Sepsis Recent Fever Within 48 Hours Sepsis New/Unexplained Change in Mental Status Sepsis Action Taken by Nursing Laboratory Data 05/14/24 16:47 05/14/24 16:47 Lab Results 05/14/24 05/14/24 Range/Units 16:47 18:36 WBC 5.96 (4.8-10.8) K/ul RBC 3.74 L (4.70-6.10) M/uL Hgb 11.6 L (14.0-18.0) g/dl Hct 35.1 L (42.0-52.0) % MCV 93.9 (80.0-100.0) fL MCH 31.0 (25.0-34.0) pg MCHC 33.0 (32.0-36.0) g/dL RDW Std Deviation 47.1 H (36.4-46.3) fL RDW Coeff of Pranav 13.8 (11.5-14.5) % Plt Count 326 (130-400) K/uL MPV 8.5 L (9.4-12.4) fL Immature Gran % (Auto) 0.2 % Neut % (Auto) 73.2 % Lymph % (Auto) 10.9 % [place] % (Auto) 12.1 % Eos % (Auto) 2.9 % Baso % (Auto) 0.7 % Neut # (Auto) 4.37 (1.40-6.50) K/uL Lymph # (Auto) 0.65 L (1.20-3.40) K/uL [place] # (Auto) 0.72 H (0.11-0.59) K/uL Eos # (Auto) 0.17 (0.00-0.50) K/uL Baso # (Auto) 0.04 (0.00-0.20) K/uL Immature Gran # (Auto) 0.01 (0.01-0.20) K/uL PT 11.9 (9.0-12.0) Seconds INR 1.1 (0.9-1.1) APTT 27 (21-31) Seconds PTT Ratio 1.0 Sodium 138 (136-145) mmol/L Potassium 4.3 (3.5-5.1) mmol/L Chloride 103 (98-107) mmol/L Carbon Dioxide 27 (21-32) mmol/L Anion Gap 8 (3-11) BUN 22 (6-23) mg/dl Creatinine 0.94 (0.6-1.4) mg/dl Est Cr Clr Drug Dosing 56.6 ml/min eGFR 80.94 BUN/Creatinine Ratio 23.4 H (10-20) Glucose 123 H (70-99(Fasting)) mg/dl Calcium 9.6 (8.6-10.3) mg/dl Total Bilirubin 0.6 (0.2-1.0) mg/dl AST 24 (13-39) U/L ALT 18 (7-52) U/L Alkaline Phosphatase 74 (34-104) U/L Troponin I High Sens 60.1 H* 56.6 H* (0-20) pg/ml Total Protein 7.1 (6.0-8.3) gm/dl Albumin 4.2 (3.4-5.0) gm/dl Globulin 2.9 (2.5-4.0) gm/dl Albumin/Globulin Ratio 1.4 (0.9-2) Administered Medications Discontinued Medications Aspirin (Aspirin Chew 324 Mg) 324 mg PO NOW STA Stop: 05/14/24 18:01 Last Admin: 05/14/24 18:04 Dose: 324 mg Documented By: Imaging Data Radiologist's Impression: Chest X-Ray 05/14/24 16:41 SINGLE VIEW CHEST CLINICAL HISTORY: Atypical chest pain. FINDINGS: 2 AP, portable, upright chest radiographs are compared to study dated 04/20/2023. The there is enlargement noted atherosclerotic calcification of the thoracic aorta. The pulmonary vasculature is not congested. Chronic interstitial thickening is similar to previous. There is mild bibasilar scarring/atelectasis. No airspace consolidation or large pleural effusion is identified. No pneumothorax is seen. A skin fold projects over the right apex. The skeletal structures are osteopenic. There are chronic/healed right-sided rib fractures. Arthritic change is seen in the right shoulder. A left shoulder arthroplasty is in place. IMPRESSION: Cardiomegaly with no active disease in the chest. ACT 112: Negative or not required by law. Electronically signed by: Bladimir Gant M.D. 05/14/2024 7:50 PM Discharge Plan Visit Data Chief Complaint: Chest Pain Stated Complaint: CHEST PAIN ED Provider: Urbano Morgan Discharge Problem: Chest pain, Complete left bundle branch block (LBBB), Elevated troponin Forms Stand Alone Forms: [facility] Prescriptions Prescriptions: No Action omeprazole 20 mg capsule,delayed release(DR/EC) 20 mg PO DAILY multivitamin Tablet 1 tab PO DAILY omega 5-ilv-pte-fish oil [Fish Oil] 1,000 mg (120 mg-180 mg) capsule 1 cap PO BID aspirin [Adult Low Dose Aspirin] 81 mg tablet,delayed release (DR/EC) 81 mg PO DAILY tamsulosin [Flomax] 0.4 mg capsule 0.4 mg PO DAILY melatonin 5 mg capsule 5 mg PO HS rosuvastatin 40 mg tablet 40 mg PO DAILY amlodipine 5 mg tablet 5 mg PO .DAILY AT NOON irbesartan 300 mg tablet 150 mg PO DAILY carvedilol 12.5 mg tablet 12.5 mg PO BID nitroglycerin 0.4 mg tablet, sublingual 0.4 mg sublingual UD PRN (Reason: Chest Pain) calcium carbonate-vitamin D3 [Calcium 600 + D(3)] 600 mg-10 mcg (400 unit) Tablet 1 tab PO BID omega 9-two-cdr-fish oil [Fish Oil] 1,200 (144-216) mg Capsule 1,200 cap PO .DAILY AT NOON Morton 3-6-9 1,200 mg Capsule 1 cap PO QPM multivitamin Tablet 1 tab PO QAM aspirin 81 mg Tablet,Delayed Release (Dr/Ec) 81 mg PO QPM pihrtvjt-zdoc-[id number]-C-becky-bosw [Glucosamine-Chondroitin 3X] 750-625-30 mg Tablet 1 tab PO BID Rx Instructions: give after food/meal hydralazine 10 mg tablet 10 mg PO DAILY ropinirole 1 mg tablet 1 mg PO HS carvedilol 3.125 mg tablet 3.125 mg PO DAILY Referrals Referrals: Karen Hannah DO [Primary Care Provider] -
[2024-05-14] MEDS ORDERED: ONDANSETRON INJ 2 MG/ML 2 ML VIAL IV PRN (22:41)
[2024-05-14] MEDS ORDERED: NITROGLYCERIN SL 0.4 MG/TAB TAB SL PRN (22:41)
[2024-05-14] MEDS ORDERED: ACETAMINOPHEN 325 MG TAB PO PRN (22:41)
[2024-05-14] MEDS ORDERED: MELATONIN 3 MG TAB PO PRN (22:52)
[2024-05-14 23:01] LABS: Magnesium 1.9 mg/dl (1.7-2.4)
[2024-05-14] MEDS: ENOXAPARIN INJ 40 MG/0.4 ML SYR SQ SCH (23:20)
[2024-05-14] MEDS: ASPIRIN 81 MG ECTAB PO SCH (23:21)
[2024-05-14] MEDS: rOPINIRole HCL 1 MG TABLET PO SCH (23:21)
[2024-05-15] MEDS ORDERED: hydrALAZINE 10 MG TAB PO PRN (00:13)
[2024-05-15] MEDS: hydrALAZINE 10 MG TAB PO SCH (00:44)
[2024-05-15] MEDS: carvediloL 12.5 MG TAB PO SCH (01:27)
[2024-05-15] MEDS: LOSARTAN POTASSIUM 50 MG TAB PO ONE (01:27)
[2024-05-15 05:55] LABS: Hematocrit (blood only) 31.5 % (42.0-52.0); Hemoglobin 10.8 g/dl (14.0-18.0); Mean Corpuscular Hemoglobin 31.4 pg (25.0-34.0); Mean Corpuscular Hgb Conc 34.3 g/dL (32.0-36.0); Mean Corpuscular Volume 91.6 fL (80.0-100.0); Mean Platelet Volume 8.4 fL (9.4-12.4); Platelet Count 281 K/uL (130-400); RDW Coefficient of Variation 13.6 % (11.5-14.5); Red Blood Count 3.44 M/uL (4.70-6.10); White Blood Count 5.99 K/ul (4.8-10.8)
[2024-05-15 06:02] LABS: BUN Creatinine Ratio 20.8 (10-20); Creatinine Clr Calc Pharmacy 52.7 ml/min; Potassium 3.9 mmol/L (3.5-5.1)
--- OUTSIDE RECORDS SUMMARY | 2024-05-15 07:13 | External Medical Summary | Continuity of Care Document ---
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 Name Role Phone [place] Karen Wesley Primary Care theresajustinapeter [phone] Encounter [facility] [id number] Date(s): 05/01/24 - 05/01/24 [facility] [address], [address] [place] [address] [phone] Encounter Diagnosis Cardiomyopathy(Discharge Diagnosis) - 05/01/24 Hyperlipidemia(Discharge Diagnosis) - 05/01/24 Hypertension(Discharge Diagnosis) - 05/01/24 Coronary artery disease(Discharge Diagnosis) - 05/01/24 Angina pectoris(Discharge Diagnosis) - 05/01/24 Discharge Disposition: Home or Self Care Attending Physician: DO Dent Jason D Referring Physician: DO Dent Jason D Allergies, Adverse Reactions, Alerts No Known Medication Allergies Assessment and Plan Extracted from: Title:Cardiology Office Visit Note Author:DO Dent Jason D Date:05/01/24 1.Cardiomyopathy 2.Coronary artery disease 3.Hyperlipidemia 4.Hypertension 5.Angina pectoris We discussed the importance of taking his medications as prescribed although I do not think this would change his behavior. We discussed that carvedilol is a twice a day drug and given the fact that his blood pressures are high first thing in the morning and then drop in the later morning I did recommend he try 3.125 mg of Coreg in the morning and stay on the 12-1/2 mg at night. He is taking his irbesartan in the evening as well. We discussed he can take hydralazine if he has a blood pressure greater than 170 as needed. He notes he just feels a slight headache when his blood pressure is really high. He remains on statin therapy and has been compliant with this. His LDL a year ago was well-controlled. With his next labs he should have a complete metabolic profile and a repeat lipid profile. Clinically his anginal symptoms are stable. Medical therapy is his best option at this point. His echocardiogram suggested a mildly reduced LV function with an ischemic cardiomyopathy. We discussed the importance of being compliant with his carvedilol and his irbesartan to reduce the risk of progressive LV dysfunction. Clinically is not having heart failure symptoms. Will see Mary in 6 months. I will see him in a year. Immunizations Given and Recorded Vaccine Date Status Refusal Reason pneumococcal 20-valent conjugate vaccine 04/27/22 Given zoster vaccine, inactivated 02/10/22 Recorded zoster vaccine, inactivated 12/02/21 Recorded SARS-CoV-2 (COVID-19) mRNA-1273 vaccine 05/25/21 R ecorded SARS-CoV-2 (COVID-19) mRNA-1273 vaccine 10/15/20 R ecorded SARS-CoV-2 (COVID-19) mRNA-1273 vaccine 09/01/20 R ecorded tetanus/diphtheria/pertuss, acel (Tdap) 11/18/15 R ecorded diphtheria/tetanus/pertuss, acel (DTaP) 08/24/05 R ecorded diphtheria/tetanus/pertuss, acel (DTaP) 04/30/95 R ecorded Medications Aspirin Low Dose Start: 06/10/15 1:02:00 PM EST, 81 mg =, PO Start Date: 06/10/15 Status: Ordered calcium with vitamin D 500 mg Start: 05/01/23 10:41:00 AM EDT Start Date: 05/01/23 Status: Ordered Chondroitin-Glucosamine 600 mg-750 mg oral tablet Start: 06/10/15 1:02:00 PM EST, See Instructions, takes two daily Start Date: 06/10/15 Status: Ordered Compoz Nighttime Sleep Aid Start: 04/28/23 10:50:00 AM EDT Start Date: 04/28/23 Status: Ordered Coreg 12.5 mg oral tablet Start: 10/17/23 10:50:00 AM EDT, 1 tab, PO, qPM, Disp# 180 tab, Refills: 3, Pharmacy: [facility] Start Date: 10/17/23 Status: Ordered Coreg 3.125 mg oral tablet Start: 05/01/24 9:26:00 AM EDT, 1 tab, PO, qAM, Disp# 90 tab, Refills: 3, Pharmacy: [facility] Start Date: 05/01/24 Status: Ordered Fish Oil 1000 mg oral capsule Start: 06/10/15 1:01:00 PM EST Start Date: 06/10/15 Status: Ordered Flomax 0.4 mg oral capsule Start: 09/25/23 10:28:00 AM EST, 1 cap, PO, Daily, Disp# 90 cap, Refills: 3, Pharmacy: [facility] Start Date: 09/25/23 Status: Ordered hydrALAZINE 10 mg oral tablet Start: 05/01/24 9:27:00 AM EDT, See Instructions, Disp# 30 tab, Refills: 3, 1 tab PO daily PRN SBP> 170, other Start Date: 05/01/24 Status: Ordered irbesartan 150 mg oral tablet Start: 04/28/23 11:10:00 AM EDT, 1 tab, PO, Daily, Disp# 90 tab, Refills: 3, Pharmacy: [facility] Start Date: 04/28/23 Status: Ordered multivitamin Start: 10/18/21 9:57:00 AM EDT, 1 tab, PO, Daily Start Date: 10/18/21 Status: Ordered nitroglycerin 0.4 mg sublingual tablet Start: 04/28/23 11:10:00 AM EDT, 1 tab, SL, q5min, Disp# 90 tab, Refills: 3, If chest pain not relieved in 5 minutes after first dose, seek immediate medical attention, PRN: as needed for chest pain, Pharmacy: [facility] Start Date: 04/28/23 Status: Ordered omeprazole 20 mg oral delayed release capsule Start: 10/17/23 10:50:00 AM EDT, 1 cap, PO, Daily, Disp# 90 cap, Refills: 3, Pharmacy: [facility] Start Date: 10/17/23 Status: Ordered rOPINIRole 1 mg oral tablet Start: 01/08/24 4:40:00 PM EDT, 1 tab, PO, Daily, Disp# 90 tab, takes 0.5mg at 8pm 1mg at 10pm [id number] at 2 am, Pharmacy: [facility] Start Date: 01/08/24 Status: Ordered rosuvastatin 40 mg oral tablet Start: 10/17/23 10:50:00 AM EDT, 1 tab, PO, qhs, Disp# 90 tab, Refills: 3, Pharmacy: [facility] Start Date: 10/17/23 Status: Ordered Mental Status 05/01/24 Barriers to Learning one year None evide nt Mandatory Health Literacy Documentation Yes Health Literacy Communication Barriers N ever Primary Language [place] Island[place] Problem List Condition Confirmation Course Effective Dates Status H ealth Status Informant Angina pectoris Confirmed Active Arthritis Confirmed Active Cardiomyopathy Confirmed Active Coronary artery disease Confirmed Active History of panic attacks Confirmed Active History of prostate cancer Confirmed Active Hyperlipidemia Confirmed Active Hypertension Confirmed Active Lumbar radiculopathy Confirmed Active Lumbar disc herniation Confirmed Active Restless leg syndrome Confirmed Active Nevus Confirmed Active Superficial thrombophlebitis Confirmed Active Varicose veins of legs Confirmed Active Diagnosis Diagnosis Type Effective Dates Health Status Clinical Service Informant Cardiomyopathy Discharge Diagnosis 05/01/24 Hyperlipidemia Discharge Diagnosis 05/01/24 Hypertension Discharge Diagnosis 05/01/24 Angina pectoris Discharge Diagnosis 05/01/24 Coronary artery disease Discharge Diagnosis 05/01/24 Procedures Procedure Date Related Diagnosis Body Site Status CT of abdomen and pelvis 1 02/24/18 Completed Shoulder 2 04/17/17 Completed Endoscopy 3 08/10/16 Completed Prostate biopsy needle 4 02/22/16 Completed Neck repair 1999 Completed Hernia repair x 4 [id number] 5 1995 Completed Arm repair 1994 Completed History of back surgery 1989 C ompleted History of head injury 6 1982 Completed 11) No evidence of bowel obstruction . No evidence of free air. 2) No renal, urethral or bladder calculi identifed. 3) Fecal retention. Distended recutm reasuring 7 cm in diameters. Rectal wall thickening an dinfiltration of the perirectal fat. 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 4) Prostamegaly. 5) INdetermiant 23 mm hyperdense right renal mass. A dedicated renal CT or MRI could be obtained inf/u for further evaluationn as deem clincally appropriate. 2left shoulder arthroplasty 3Normal esophogus, gastritis, normal 2nd part of duodenum - biopsied 4prostate biopsy - prostatic adenocarcinoma 5x4 6Tree Accident Vital Signs Most recent to oldest [Reference Range]: 1 Patient Weight 70 kg (05/01/24 9:07 AM) Heart Rate 88 bpm (05/01/24 9:07 AM) Blood Pressure 134/82mmHg (05/01/24 9:07 AM) BP Location # 1 Right Arm (05/01/24 9:07 AM) Social History Social History Type Response Smoking Status Never smoked cigaret phillip Sex Male Sex Representation Male (finding) Cardiology Outpatient Note * DO Dent Jason D: PERFORM Event Display: Cardiology Outpt Note Authored Date: Primary Care Provider Won Wesley DO, Mariana Annette Referring Provider DO Dent Jason D Chief Complaint 3 mon cad htn chol History of Present Illness He has been taking his medications the way he wants to. He is taking high doses at night because his blood pressure is high in the evening. He then notices in the morning its high at around 10:00having not taken any medicine and seems and at times he is orthostatic. He can climb a flight of stairs without having to stop. He denies any anginal symptoms on the stairs. He can walk on the flat without any issues. If he has to walk uphill to his workshop he does get some shortness of breath. He denies any presyncope or syncope. His leg pain has improved but he is taking double the amountof ropinirole that he was prescribed. He occasionally takes hydralazine when his blood pressure is high. He is unaware of any palpitations or fluttering. He denies any presyncope or syncope. He hasno lower extremity edema. Review of Systems 1. Coronary artery disease withcatheterization10/10/2022 with70% diffuse first diagonal stenosis in a moderate size vessel, 95% distal LAD stenosis, small nondominant RCA that was diffusely diseased. 1B. Chronic Stable angina Functional Class 1 2. Labile blood pressures 3. Dyslipidemia 4. PET/CT October 07 2022 with small area of distal RCA territory ischemia, normal wall motion with ejection fraction of 54% at rest, left bundle branch block 5. Mild LV dysfunction, abnormal septal and inferior wall motionLVEF 45-50%, Normal RV fxn; Mild to moderate AR/ MR [facility] 01/2024 6. TIA 03/2023; Normal Head and Neck CTA, MRI with no acute events but prior right temporal infarct Physical Exam Vitals & Measurements HR:88(Monitored) BP:134/82 SpO2:98% WT:70kg WT:70.000kg(Dosing) Patient is awake alert and oriented x3and in no acute distress HEENT:2+ carotid upstrokes, no evidence of carotid bruits LUNGS:Clear to auscultation bilaterally no rales rhonchi or wheezing HEART:Regular rate and rhythmno appreciable murmurs rubs or gallops EXTREMITIES:No evidence of clubbing cyanosis or edema PSYCHIATRIC:Patient's affect appeared appropriate Diagnostic Results Echo TransTHORacic TTE Complete Report Signatures Amended by Dr. Juan R Dent MD on 02/27/2024 05:[address] Juan R Dent MD on 02/27/2024 05:48 PM Summary 1. Normal left ventricular chamber size and mildly reduced systolic function. 2. Ejection fraction as calculated by Biplane Simpsons method is 50%. (LV fxn is better in the 2C and worse in the 3 and 4 Chamber views). 3. Abnormal septal motion worse than just from the left bundle branch block. The inferior wall is hypokinetic. 4. Abnormal Global endocardial peak longitudinal strain is mildly abnormal (-15%). 5. Mild left ventricular hypertrophy. Asymmetric basal septal hypertrophy of the elderly (1.7 cm). 6. Grade I diastolic dysfunction of the left ventricle (impaired relaxation pattern). 7. Mildly dilated right ventricle with normal RV systolic function. 8. Tricuspid aortic valve without stenosis. 9. Mild to moderate aortic regurgitation. 10. Mild to moderate mitral valve regurgitation. 11. Compared to the 2022 study LV fxn remains stable but degree of dysynchrony is worse and although Biplane German is unchanged side by side LV fxn looks slightly worse. Assessment/Plan 1.Cardiomyopathy 2.Coronary artery disease 3.Hyperlipidemia 4.Hypertension 5.Angina pectoris We discussed the importance of taking his medications as prescribed although I do not think this would change his behavior. We discussed that carvedilol is a twice a day drug and given the fact that his blood pressures are high first thing in the morning and then drop in the later morning I did recommend he try 3.125 mg of Coreg in the morning and stay on the 12-1/2 mg at night. He is taking his irbesartan in the evening as well. We discussed he can take hydralazine if he has a blood pressure greater than 170 as needed. He notes he just feels a slight headache when his blood pressure is really high. He remains on statin therapy and has been compliant with this. His LDL a year ago was well-controlled. With his next labs he should have a complete metabolic profile and a repeat lipid profile. Clinically his anginal symptoms are stable. Medical therapy is his best option at this point. His echocardiogram suggested a mildly reduced LV function with an ischemic cardiomyopathy. We discussed the importance of being compliant with his carvedilol and his irbesartan to reduce the risk of progressive LV dysfunction. Clinically is not having heart failure symptoms. Will see Mary in 6 months. I will see him in a year. Problem List/Past Medical History Ongoing Arthritis Cardiomyopathy Coronary artery disease History of panic attacks History of prostate cancer Hyperlipidemia Hypertension Lumbar disc herniation Lumbar radiculopathy Nevus Restless leg syndrome Superficial thrombophlebitis Varicose veins of legs Procedure/Surgical History CT of abdomen and pelvis| Service Date: 02/24/2018Shoulder| Service Date: 04/17/2017Endoscopy| Service Date: 08/10/2016Prostate biopsy needle| Service Date: 02/22/2016Neck repair| Service Date: 1999Hernia repair x 4 [id number]| Service Date: 1995Arm repair| Service Date: 1994History of back surgery| Service Date: 1989History of head injury| Service Date: 1982 Medications amLODIPine(amLODIPine 2.5 mg oral tablet), 2.5 mg= 1 tab, PO, Daily, 3 refills aspirin(Aspirin Low Dose), 81 mg, PO calcium-vitamin D(calcium with vitamin D 500 mg) carvedilol(Coreg 12.5 mg oral tablet), 12.5 mg= 1 tab, PO, qPM, 3 refills chondroitin-glucosamine(Chondroitin-Glucosamine 600 mg-750 mg oral tablet), See Instructions diphenhydrAMINE(Compoz Nighttime Sleep Aid) doxycycline(doxycycline hyclate 100 mg oral capsule), 100 mg= 1 cap, PO, bid irbesartan(irbesartan 150 mg oral tablet), 150 mg= 1 tab, PO, Daily, 3 refills multivitamin, 1 tab, PO, Daily nitroglycerin(nitroglycerin 0.4 mg sublingual tablet), 0.4 mg= 1 tab, SL, q5min, PRN, 3 refills omega-3 polyunsaturated fatty acids(Fish Oil 1000 mg oral capsule) omeprazole(omeprazole 20 mg oral delayed release capsule), 20 mg= 1 cap, PO, Daily, 3 refills rOPINIRole(rOPINIRole 1 mg oral tablet), 1 mg= 1 tab, PO, Daily rosuvastatin(rosuvastatin 40 mg oral tablet), 40 mg= 1 tab, PO, qhs, 3 refills tamsulosin(Flomax 0.4 mg oral capsule), 0.4 mg= 1 cap, PO, Daily, 3 refills Allergies No Known Medication Allergies Social History Smoking Status Never smoked cigarettes Family History Health Status Family Member(s) Family Member(s) Relationship: Mother, Age: 89 Years, Cause: CVA Relationship: Father, Age: Unknown, Cause: CVA Electronic Signature on File CC: Karen Wesley DO [address] [place] [address] Electronically Reviewed/Signed by: Juan R Dent DO Author Signature Dt/Tm:05/01/2024 09:33 AM Life Guardstart up specialist [facility] [place] [place] [address] JDF Patient Care team information Care Team Personnel Name: Won Wesley DO, Mariana Annette Position: Physician - Family Med Member Role: Primary Care Provider Address: [address] [place] [address] [place] Name: HALEIGH Moss Lynn 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
--- OUTSIDE RECORDS SUMMARY | 2024-05-15 07:13 | External Medical Summary | Continuity of Care Document ---
Author Name Unknown Organization [facility] [address] [facility] Address [address] [place], [place] [id number] Care Team Providers Care Title Manager Name Role Phone [place] Karen Wesley Primary Care P theresajustinapeter [phone] Encounter [facility] [id number] Date(s): 04/24/24 - 04/24/24 [facility] [address], [address] [place] [address] [phone] Discharge Disposition: Home or Self Care Attending Physician: MARRY Leiva Sarah A Referring Physician: MARRY Leiva Sarah A Allergies, Adverse Reactions, Alerts No Known Medication Allergies Immunizations Given and Recorded Vaccine Date Status [...] diphtheria/tetanus/pertuss, acel (DTaP) 04/30/95 R ecorded Medications amLODIPine 2.5 mg oral tablet Start: 11/06/23 2:26:00 PM EDT, 1 tab, PO, Daily, Disp# 90 tab, Refills: 3, DOSE CHANGE, other Start Date: 11/06/23 Status: Ordered Aspirin Low Dose Start: 06/10/15 1:02:00 PM [...] 10/17/23 10:50:00 AM EDT, 1 tab, PO, bid, Disp# 180 tab, Refills: 3, Pharmacy: [facility] Start Date: 10/17/23 Status: Ordered doxycycline hyclate 100 mg oral capsule Start: 04/08/24 11:49:00 AM EDT, 1 cap, PO, bid, Disp# 20 cap, Pharmacy: [facility] Start Date: 04/08/24 Stop Date: 04/18/24 Status: Ordered Fish Oil 1000 mg oral capsule Start: 06/10/15 1:01:00 PM EST Start Date: 06/10/15 Status: Ordered Flomax 0.4 mg oral capsule Start: 09/25/23 10:28:00 AM EST, 1 cap, PO, Daily, Disp# 90 cap, Refills: 3, Pharmacy: [facility] Start Date: 09/25/23 Status: Ordered hydrALAZINE 10 mg oral tablet Start: 03/27/24 1:14:00 PM EDT Start Date: 03/27/24 Status: Ordered irbesartan 150 mg oral tablet Start: 04/28/23 11:10:00 AM EDT, 1 tab, PO, Daily, Disp# 90 tab, Refills: 3, Pharmacy: [facility] Start Date: 04/28/23 Status: Ordered multivitamin Start: 10/18/21 9:57:00 AM EDT, 1 tab, PO, Daily Start Date: 10/18/21 Status: Ordered nitroglycerin 0.4 mg sublingual tablet Start: 04/28/23 11:10:00 AM EDT, 1 tab, SL, q5min, Disp# 90 tab, Refills: 3, If chest pain not relieved in 5 minutes after first dose, seek immediate medical attention, PRN: as needed for chest pain, Pharmacy: [facility] Start Date: 04/28/23 Status: Ordered omeprazole 20 mg oral delayed release capsule Start: 10/17/23 10:50:00 AM EDT, 1 cap, PO, Daily, Disp# 90 cap, Refills: 3, Pharmacy: [facility] Start Date: 10/17/23 Status: Ordered rOPINIRole 1 mg oral tablet Start: 01/08/24 4:40:00 PM EDT, 1 tab, PO, Daily, Disp# 90 tab, 1 to 3 hours before bedtime, to be used with 0.25 mg tab for total dose of 1.25 mg nightly., Pharmacy: [facility] Start Date: 01/08/24 Status: Ordered rosuvastatin 40 mg oral tablet Start: 10/17/23 10:50:00 AM EDT, 1 tab, PO, qhs, Disp# 90 tab, Refills: 3, Pharmacy: [facility] Start Date: 10/17/23 Status: Ordered Problem List Condition Confirmation Course Effective Dates Status H ealth Status Informant Arthritis Confirmed Active Cardiomyopathy Confirmed Active Coronary artery disease Confirmed Active History of panic attacks Confirmed Active History of prostate cancer Confirmed Active Hyperlipidemia Confirmed Active Hypertension Confirmed Active Lumbar radiculopathy Confirmed Active Lumbar disc herniation Confirmed Active Restless leg syndrome Confirmed Active Nevus Confirmed Active Superficial thrombophlebitis Confirmed Active Varicose veins of legs Confirmed Active Procedures Procedure Date Related Diagnosis Body Site Status CT of abdomen and pelvis 1 02/24/18 Completed Shoulder 2 04/17/17 Completed Endoscopy 3 08/10/16 Completed Prostate biopsy needle 4 02/22/16 Completed Neck repair 1999 Completed Hernia repair x 4 [id number] 5 1995 Completed Arm repair 1994 Completed History of back surgery 1989 C ompleted History of head injury 1982 Completed 11) No evidence of bowel [...] biopsy - prostatic adenocarcinoma 5x4 6Tree Accident Social History Social History Type Response Smoking Status Never smoked cigaret phililp Sex Male Sex Representation Male (finding) Cardiology * Contributor_system, MUSE01: VERIFY, PERFORM Event Display: Exercise Testing Authored Date: Please click on link to see image. 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
--- OUTSIDE RECORDS SUMMARY | 2024-05-15 07:13 | External Medical Summary | Continuity of Care Document ---
Author Name Unknown Organization [address] Address [address] [place] [address] [phone] Care Team Providers Care Hospice Office Coordinator Name Role Phone aKren Hannah Primary Care hysician [phone] [id number] Date(s): 03/27/24 - 03/27/[address], [address] [address] [place] [phone] Encounter Diagnosis Myalgia, unspecified site(Final) - Myalgia(Discharge Diagnosis) - 03/27/24 Hypertension(Discharge Diagnosis) - 03/27/24 Discharge Disposition: Home or Self Care Attending Physician: Won Wesley DO, Mariana Annette Referring Physician: Won Wesley DO, Mariana Annette Allergies, Adverse Reactions, Alerts No Known Medication Allergies Assessment and Plan Extracted from: Title:Office Visit Note Author:Won Wesley DO, Mariana Annette Date:03/27/24 1.Myalgia Lyme testing ordered 2.Hypertension Patient seems to be using hydralazine PRN and then becoming hypotensive advised to take amlodipine in the evening to help with his elevated BP at night continue coreg and irbesartan hold hydralazine to prevent hypotension check BP TID until he sees cardiology next month Immunizations Given and Recorded Vaccine Date Status [...] bid, Disp# 180 tab, Refills: 3, Pharmacy: [facility] Start Date: 10/17/23 Status: Ordered Fish Oil 1000 mg oral capsule Start: 06/10/15 1:01:00 PM EST Start Date: 06/10/15 Status: Ordered Flomax 0.4 mg oral capsule Start: 09/25/23 10:28:00 AM EST, 1 cap, PO, Daily, Disp# 90 cap, Refills: 3, Pharmacy: [facility] Start Date: 09/25/23 Status: Ordered hydrALAZINE 10 mg oral tablet Start: 03/27/24 1:14:00 PM EDT Start Date: 03/27/24 Status: Ordered irbesartan 150 mg oral tablet Start: 04/28/23 11:10:00 AM EDT, 1 tab, PO, Daily, Disp# 90 tab, Refills: 3, Pharmacy: [facility] Start Date: 04/28/23 Status: Ordered multivitamin Start: 10/18/21 9:57:00 AM EDT, 1 tab, PO, Daily Start Date: 10/18/21 Status: Ordered nitroglycerin 0.4 mg sublingual tablet Start: 04/28/23 11:10:00 AM EDT, 1 tab, SL, q5min, Disp# 90 tab, Refills: 3, If chest pain not relieved in 5 minutes after first dose, seek immediate medical attention, PRN: as needed for chest pain, Pharmacy: [facility] Start Date: 04/28/23 Status: Ordered omeprazole 20 mg oral delayed release capsule Start: 10/17/23 10:50:00 AM EDT, 1 cap, PO, Daily, Disp# 90 cap, Refills: 3, Pharmacy: [facility] Start Date: 10/17/23 Status: Ordered rOPINIRole 1 mg oral tablet Start: 01/08/24 4:40:00 PM EDT, 1 tab, PO, Daily, Disp# 90 tab, 1 to 3 hours before bedtime, to be used with 0.25 mg tab for total dose of 1.25 mg nightly., Pharmacy: [facility] Start Date: 01/08/24 Status: Ordered rosuvastatin 40 mg oral tablet Start: 10/17/23 10:50:00 AM EDT, 1 tab, PO, qhs, Disp# 90 tab, Refills: 3, Pharmacy: [facility] Start Date: 10/17/23 Status: Ordered Mental Status 03/27/24 Barriers to Learning one year None evide nt Mandatory Health Literacy Documentation Yes Health Literacy Communication Barriers N ever Primary Language Turkmen Problem List Condition Confirmation Course Effective Dates [...] Diagnosis Diagnosis Type Effective Dates Health Status Cl inical Service Informant Myalgia Discharge Diagnosis 03/27/24 Non-Specified Hypertension Discharge Diagnosis 03/27/24 Non-Specified Procedures Procedure Date Related Diagnosis Body Site Status CT of abdomen and pelvis 1 02/24/18 Completed Shoulder 2 04/17/17 Completed Endoscopy 3 08/10/16 Completed Prostate biopsy needle 4 02/22/16 Completed Neck repair 1999 Completed Hernia repair x 4 [id number] 5 1995 Completed Arm repair 1994 Completed [...] biopsy - prostatic adenocarcinoma 5x4 [facility] Results Laboratory List Name Date Lyme Antibodies (IgG, IgM), Western Blot (LYME IGG IGM CONFIRM) 03/27/24 Lyme Antibodies, IgG and IgM (LYME ABS I GG,IGM) 03/27/24 Most recent to oldest [Reference Range]: 1 Lyme Antibodies, IgG/IgM [NEG] PRESUMPTI VELY POSITIVE, SCREENING ASSAY, CONFIRMATION TO FOLLOW *Abnormal* (03/27/24 2:10 PM) Lyme IgG Antibodies POSITIVE 1 *Unknown* (03/27/24 2:10 PM) Lyme IgM Antibodies POSITIVE 2 *Unknown* (03/27/24 2:10 PM) Lyme Antibodies Comment NOT REPORTED *Unknown* (03/27/24 2:10 PM) 1Result Comment: The results for specific antibodies to Borrelia burgdorferi by Western-Blot demonstrate the presence of 5 or more antibodies of the IgG subclass. This positiveresult indicates a past infection with B. burgdorferi. Test results reported to [facility] 2Result Comment: The results for specific antibodies to B. burgdorferi by Western-Blot demonstrate the presence of 2 or more antibodies of the IgM subclass. This positive result is often, but not always, indicative of recent infections with B. burgdorferi. [facility] Vital Signs Most recent to oldest [Reference Range]: 1 Patient Weight 71.4 kg (8/28/24 1:13 PM) Temperature [36.5-37.9 DegC] 36.5 DegC (03/27/24 1:13 PM) Heart Rate 74 bpm (03/27/24 1:13 PM) Blood Pressure 102/70mmHg (03/27/24 1:13 PM) Cuff Pulse Pressure 32 mmHg (03/27/24 1:13 PM) Social History Social History Type Response Smoking Status Never smoked cigaret phillip Sex Male Sex Representation Male (finding) FCM Outpt Note * Won Wesley DO, Mariana Annette: PERFORM Event Display: FCM Outpt Note Authored Date: Chief Complaint Wants to get checked for lymes. Muscle aches/soreness. History of Present Illness Endorses myalgias, requestslyme testing,has not noted any recent tick bites or rashes. 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 Notes BP fluctuations he is on amlodipine 2.5mg at lunch time, coreg 12.5mg daily with dinner,irbesartan 150mg daily inthe AM, states he re-started hydralazine 10mg at bedtime and another dose in the middle of the night (2-3am) if his BP is high. He is concerned that his BP is in the 160s when he wakes up in the night. He also notes he becomes light headed in the morning. Physical Exam Vitals & Measurements T:36.5C HR:74(Monitored) BP:102/70 SpO2:97% WT:71.4kg WT:71.400kg(Dosing) PHQ2 Data(Data Documented on:03/27/2024 13:10) Emotional health assessment NEGATIVE General: _Alert and oriented, No acute distress Cardiovascular: _Normal rate, Regular rhythm, No murmur, No gallop. Respiratory: _Lungs are clear to auscultation, Respirations are non-labored, Breath sounds are equal Psych: Mood-affect congruence. Reports no SI/HI. Speech is of normal pace and content Assessment/Plan 1.Myalgia Lyme testing ordered 2.Hypertension Patient seems to be using hydralazine PRN and then becoming hypotensive advised to take amlodipine in the evening to help with his elevated BP at night continue coreg and irbesartan hold hydralazine to prevent hypotension check BP TID until he sees cardiology next month Attestation Time spent: Pre-visit planning: _5 Aiha-ms-plnk visit: _25 Post-visit (orders/documentation/coordination of care):4 Total visit time: _34 Problem List/Past Medical History Ongoing Arthritis Cardiomyopathy Coronary artery disease History of panic attacks History of prostate cancer Hyperlipidemia Hypertension Lumbar disc herniation Lumbar radiculopathy Nevus Restless leg syndrome Superficial thrombophlebitis Varicose veins of legs Procedure/Surgical History CT of abdomen and pelvis| Service Date: 02/24/2018Shoulder| Service Date: 04/17/2017Endoscopy| Service Date: 08/10/2016Prostate biopsy needle| Service Date: 02/22/2016Neck repair| Service Date: 1999Hernia repair x 4 [id number]| Service Date: 1995Arm repair| Service Date: 1994History of back surgery| Service Date: 1989History of head injury| Service Date: 1982 Medications amLODIPine(amLODIPine 2.5 mg oral tablet), 2.5 mg= 1 tab, PO, Daily, 3 refills aspirin(Aspirin Low Dose), 81 mg, PO calcium-vitamin D(calcium with vitamin D 500 mg) carvedilol(Coreg 12.5 mg oral tablet), 12.5 mg= 1 tab, PO, bid, 3 refills chondroitin-glucosamine(Chondroitin-Glucosamine 600 mg-750 mg oral tablet), See Instructions diphenhydrAMINE(Compoz Nighttime Sleep Aid) hydrALAZINE(hydrALAZINE 10 mg oral tablet) irbesartan(irbesartan 150 mg oral tablet), 150 mg= [...] CVA Relationship: Father, Age: Unknown, Cause: CVA Immunizations Vaccine Date Status pneumococcal 20-valent conjugate vaccine 04/27/2022 Given zoster vaccine, inactivated 02/10/2022 Recorded zoster vaccine, inactivated 12/02/2021 Recorded SARS-CoV-2 (COVID-19) mRNA-1273 vaccine 05/25/2021 Recorded SARS-CoV-2 (COVID-19) mRNA-1273 vaccine 10/15/2020 Recorded SARS-CoV-2 (COVID-19) mRNA-1273 vaccine 09/01/2020 Recorded tetanus/diphtheria/pertuss, acel (Tdap) 11/18/2015 Recorded diphtheria/tetanus/pertuss, acel (DTaP) 08/24/2005 Recorded diphtheria/tetanus/pertuss, acel (DTaP) 04/30/1995 Recorded Recommendations Health Maintenance Pending(in the next year) OverDue Adult Influenza Vaccine due01/28/24and every 1year Due Adult COVID-19 Vaccination due03/27/24Unknown Frequency Adult Social Determinants of Health Screening due03/27/24Unknown Frequency Medicare Annual Wellness Visit due03/27/24and every 1year Satisfied(in the past 1 year) Satisfied Body Mass Index on01/10/24.Satisfied by MICHELLE Jerome Angela Electronic Signature on File Electronically Reviewed/Signed by: Karen Wesley DO Author Signature Dt/Tm:03/27/2024 05:21 PM Department of Family Medicine MAF Patient Care team information Care Team Personnel Name: Won Wesley DO, Mariana Annette Position: Physician - Family Med Member Role: Primary Care Provider Address: [address] [place] [id number] [place] Name: HALEIGH Moss Lynn Position: Physician Parachute Taper Exempt - Vasc Surg Member Role: Lifetime Relationship Address: [address] [place] [address] [place] Care Team Related Persons Name: SHEREE RODRIGES"
--- OUTSIDE RECORDS SUMMARY | 2024-05-15 07:13 | External Medical Summary | Continuity of Care Document ---
Author Name Unknown Organization [address] Address [address] [place] [address] [phone] Care Team Providers Care Cosmetician Apprentice Name Role Phone Karen Hannah Primary Care hysician [phone] [facility] [id number] Date(s): 04/15/24 - 04/15/[address], [address] [address] [place] [phone] Encounter Diagnosis Cardiomyopathy(Discharge Diagnosis) - 04/15/24 Hypertension(Discharge Diagnosis) - 04/15/24 Discharge Disposition: Home or Self Care Attending Physician: Won Wesley DO, Mariana Annette Referring Physician: Won Wesley DO, Mariana Annette Allergies, Adverse Reactions, Alerts No Known Medication Allergies Assessment and Plan Extracted from: Title:Office Visit Note Author:Won Wesley DO, Mariana Annette Date:04/15/24 1.Cardiomyopathy Pt should be on an ACEiand BB if tolerated advised to continue the coregat night, stop amlodipine and re-start the irbesartan 150mg at night he seems concerned about his BP going up at ~3am or when he wakes. advised to not self titrate antihypertensives and to continue BP monitoring 2.Hypertension as above Immunizations Given and Recorded Vaccine Date Status Refusal Reason pneumococcal 20-valent conjugate vaccine 04/27/22 Given zoster vaccine, inactivated 02/10/22 Recorded zoster vaccine, inactivated 12/02/21 Recorded SARS-CoV-2 (COVID-19) mRNA-1273 vaccine 05/25/21 R ecorded SARS-CoV-2 (COVID-19) mRNA-1273 vaccine 10/15/20 R ecorded SARS-CoV-2 (COVID-19) mRNA-9735 vaccine 09/01/20 R ecorded tetanus/diphtheria/pertuss, acel (Tdap) [...] bid, Disp# 180 tab, Refills: 3, Pharmacy: [facility] Start Date: 10/17/23 Status: Ordered doxycycline hyclate 100 mg oral capsule Start: 04/08/24 11:49:00 AM EDT, 1 cap, PO, bid, Disp# 20 cap, Pharmacy: [facility] Start Date: 04/08/24 Stop Date: 04/18/24 Status: Ordered Fish Oil 1000 mg oral capsule Start: 06/10/15 1:01:00 PM EST Start Date: 06/10/15 Status: Ordered Flomax 0.4 mg oral capsule Start: 09/25/23 10:28:00 AM EST, 1 cap, PO, Daily, Disp# 90 cap, Refills: 3, Pharmacy: [facility] Start Date: 09/25/23 Status: Ordered hydrALAZINE 10 mg oral tablet Start: 03/27/24 1:14:00 PM EDT Start Date: 03/27/24 Status: Ordered irbesartan 150 mg oral tablet Start: 04/28/23 11:10:00 AM EDT, 1 tab, PO, Daily, Disp# 90 tab, Refills: 3, Pharmacy: [facility] Start Date: 04/28/23 Status: Ordered multivitamin Start: 10/18/21 9:57:00 AM EDT, 1 tab, PO, Daily Start Date: 10/18/21 Status: Ordered nitroglycerin 0.4 mg sublingual tablet Start: 04/28/23 11:10:00 AM EDT, 1 tab, SL, q5min, Disp# 90 tab, Refills: 3, If chest pain not relieved in 5 minutes after first dose, seek immediate medical attention, PRN: as needed for chest pain, Pharmacy: [facility] Start Date: 04/28/23 Status: Ordered omeprazole 20 mg oral delayed release capsule Start: 10/17/23 10:50:00 AM EDT, 1 cap, PO, Daily, Disp# 90 cap, Refills: 3, Pharmacy: [facility] Start Date: 10/17/23 Status: Ordered rOPINIRole 1 mg oral tablet Start: 01/08/24 4:40:00 PM EDT, 1 tab, PO, Daily, Disp# 90 tab, 1 to 3 hours before bedtime, to be used with 0.25 mg tab for total dose of 1.25 mg nightly., Pharmacy: [facility] Start Date: 01/08/24 Status: Ordered rosuvastatin 40 mg oral tablet Start: 10/17/23 10:50:00 AM EDT, 1 tab, PO, qhs, Disp# 90 tab, Refills: 3, Pharmacy: [facility] Start Date: 10/17/23 Status: Ordered Mental Status 04/15/24 Barriers to Learning one year None evide nt Mandatory Health Literacy Documentation Yes Health Literacy Communication Barriers N ever Primary Language Dominican Problem List Condition Confirmation Course Effective Dates [...] Dates Health Status Cl inical Service Informant Hypertension Discharge Diagnosis 04/15/24 Non-Specified Cardiomyopathy Discharge Diagnosis 04/15/24 Non-Specified Procedures Procedure Date Related Diagnosis Body Site Status CT of abdomen and pelvis 1 02/24/18 Completed Shoulder 2 04/17/17 Completed Endoscopy 3 08/10/16 Completed Prostate biopsy needle 4 02/22/16 Completed Neck repair 1999 Completed Hernia repair x 4 [id number] 5 1995 Completed Arm repair 1994 Completed [...] to oldest [Reference Range]: 1 Patient Weight 69.1 kg (04/15/24 4:14 PM) Temperature [36.5-37.9 DegC] 36.7 DegC (04/15/24 4:14 PM) Heart Rate 80 bpm (04/15/24 4:14 PM) Blood Pressure 128/80mmHg (04/15/24 4:14 PM) Cuff Pulse Pressure 48 mmHg (04/15/24 4:14 PM) Social History Social History Type Response Smoking Status Never smoked cigaret phillip Sex Male Sex Representation Male (finding) FCM Outpt Note * Won Wesley DO, Mariana Annette: PERFORM Event Display: FCM Outpt Note Authored Date: [id number] Chief Complaint Only takes carvedilol daily, not taking irbesartan, hair loss, Low Bp issues--lightheaded, dizziness, headaches. Wakes up in middle of night with head sweating, weight loss. History of Present Illness Pt presents to discuss HTN he seems to be self-titrating his BP meds he stopped taking irbesartan ~2 weeks ago, he takes coregwith dinner only he also started taking amlopidine 2.5mg at night and then self increased it to 5mg? currently he is taking: coreg 12.5mg at night, and taking amlodipine 5mg at bedtime. His BP log (2 days) 90s-100s/60s-70s, 100-140s/60-90s He cancelled his cardiology appt dueto a covidinfection but rescheduled for April he notes some weight loss, night sweats. He had a prelim +lyme test, pending confirmatory testing. Physical Exam Vitals & Measurements T:36.7C HR:80(Monitored) BP:128/80 SpO2:96% WT:69.1kg WT:69.100kg(Dosing) PHQ2 Data(Data Documented on:04/15/2024 16:07) Emotional health assessment NEGATIVE General: _Alert and oriented, No acute distress Cardiovascular: _Normal rate, Regular rhythm, No murmur, No gallop. Respiratory: _Lungs are clear to auscultation, Respirations are non-labored, Breath sounds are equal Psych: Mood-affect congruence. Speech is of normal pace and content Assessment/Plan 1.Cardiomyopathy Pt should be on an ACEiand BB if tolerated advised to continue the coregat night, stop amlodipine and re-start the irbesartan 150mg at night he seems concerned about his BP going up at ~3am or when he wakes. advised to not self titrate antihypertensives and to continue BP monitoring 2.Hypertension as above Attestation Time spent: Pre-visit planning: _5 Ysdm-[id number] visit: _18 Post-visit (orders/documentation/coordination of care):5 Total visit time: _28 Problem List/Past Medical History Ongoing Arthritis Cardiomyopathy Coronary artery disease History of panic attacks History of prostate cancer Hyperlipidemia Hypertension Lumbar disc herniation Lumbar radiculopathy Nevus Restless leg syndrome Superficial thrombophlebitis Varicose veins of legs Procedure/Surgical History CT of abdomen and pelvis| Service Date: 02/24/2018Shoulder| Service Date: 04/17/2017Endoscopy| Service Date: 08/10/2016Prostate biopsy needle| Service Date: 02/22/2016Neck repair| Service Date: 1999Hernia repair x 4 [id number]| Service Date: 1995Arm repair| Service Date: 1994History [...] capsule), 100 mg= 1 cap, PO, bid hydrALAZINE(hydrALAZINE 10 mg oral tablet) irbesartan(irbesartan 150 [...] due01/28/24and every 1year Due Adult COVID-19 Vaccination due04/15/24Unknown Frequency Adult Social Determinants of Health Screening due04/15/24Unknown Frequency Medicare Annual Wellness Visit due04/15/24and every 1year Satisfied(in the past 1 year) Satisfied Body Mass Index on01/10/24.Satisfied by MICHELLE Jerome Angela Electronic Signature on File Electronically Reviewed/Signed by: Karen Wesley DO Author Signature Dt/Tm:04/15/2024 05:06 PM Department of Family Medicine MAF Patient Care team information Care Team Personnel Name: Won Wesley DO, Mariana Annette Position: Physician - Family Med Member Role: Primary Care Provider Address: [address] [place] [address] [place] Name: HALEIGH Moss Lynn Position: Physician Sorter Operator Exempt - Vasc Surg Member Role: Lifetime Relationship Address: [address] [place] [address] [place] Care Team Related Persons Name: SHEREE RODRIGES"
--- OUTSIDE RECORDS SUMMARY | 2024-05-15 07:13 | External Medical Summary | Continuity of Care Document ---
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 Name Role Phone [place] Karen Wesley Primary Care P theresajustinapeter [phone] Encounter [facility] [id number] Date(s): 02/27/24 - 02/27/24 [facility] [address], [address] [place] [address] [phone] Discharge Disposition: Home or Self Care Attending [...] bid, Disp# 180 tab, Refills: 3, Pharmacy: [facility] Start Date: 10/17/23 Status: Ordered Fish Oil 1000 mg oral capsule Start: 06/10/15 1:01:00 PM EST Start Date: 06/10/15 Status: Ordered Flomax 0.4 mg oral capsule Start: 09/25/23 10:28:00 AM EST, 1 cap, PO, Daily, Disp# 90 cap, Refills: 3, Pharmacy: [facility] Start Date: 09/25/23 Status: Ordered irbesartan 150 mg oral tablet Start: 04/28/23 11:10:00 AM EDT, 1 tab, PO, Daily, Disp# 90 tab, Refills: 3, Pharmacy: [facility] Start Date: 04/28/23 Status: Ordered multivitamin Start: 10/18/21 9:57:00 AM EDT, 1 tab, PO, Daily Start Date: 10/18/21 Status: Ordered nitroglycerin 0.4 mg sublingual tablet Start: 04/28/23 11:10:00 AM EDT, 1 tab, SL, q5min, Disp# 90 tab, Refills: 3, If chest pain not relieved in 5 minutes after first dose, seek immediate medical attention, PRN: as needed for chest pain, Pharmacy: [facility] Start Date: 04/28/23 Status: Ordered omeprazole 20 mg oral delayed release capsule Start: 10/17/23 10:50:00 AM EDT, 1 cap, PO, Daily, Disp# 90 cap, Refills: 3, Pharmacy: [facility] Start Date: 10/17/23 Status: Ordered rOPINIRole 1 mg oral tablet Start: 01/08/24 4:40:00 PM EDT, 1 tab, PO, Daily, Disp# 90 tab, 1 to 3 hours before bedtime, to be used with 0.25 mg tab for total dose of 1.25 mg nightly., Pharmacy: [facility] Start Date: 01/08/24 Status: Ordered rosuvastatin 40 mg oral tablet Start: 10/17/23 10:50:00 AM EDT, 1 tab, PO, qhs, Disp# 90 tab, Refills: 3, Pharmacy: [facility] Start Date: 10/17/23 Status: Ordered Problem [...] repair 1999 Completed Hernia repair x [id number] 1995 Completed Arm repair 1994 Completed [...] - prostatic adenocarcinoma 5x4 6Tree Accident Results Radiology Reports * Exam Date Time Procedure Performing Provider Status 02/27/24 10:07 AM Echo TransTHORacic TTE Complete Kaylen Winston; Modified Notes: (Echo TransTHORacic TTE Complete) Reason For Exam: ischemic cardiomyopathy Echo TransTHORacic TTE Complete Report Signatures Amended by Dr. Juan R Dent MD on 02/27/2024 05:[address] Juan R Dent MD on 02/27/2024 05:48 PM [place] Act 112: Yes - Discussed with patient Summary 1. Normal left ventricular chamber size [...] by side LV fxn looks slightly worse. Patient Info Name: ANN-MARIE RODRIGES Age: 84 years : 1940 Gender: Male Ht: 170 cm Wt: 69 kg BSA: 1.82 m2 HR: 74 bpm BP: 160 / 96 mmHg Heart Rhythm: Sinus Rhythm Technical Quality: Good Exam Date: 02/27/2024 9:25 AM [facility]am [facility] Patient Status: Outpatient Staff Ordering Physician: [facility] Administrator: Kaylen Kim RDCS, T Attending Physician: [facility] Study Info CPT 58424 - 25901 - Indications I255 - Ischemic cardiomyopathy Procedure(s) * A complete two-dimensional, color flow and Doppler transthoracic echocardiogram was performed. * Strain Imaging was added to further interrogate the severity of disease. Exam Type: Cardiac Basic Left Ventricle Normal left ventricular chamber size and mildly reduced systolic function. Ejection fraction as calculated by Biplane Simpsons method is 50%. (LV fxn is better in the 2C and worse in the 3 and 4 Chamber views). Abnormal septal motion worse than just from the left bundle branch block. The inferior wall is hypokinetic. Abnormal Global endocardial peak longitudinal strain is mildly abnormal (-15%). Mild left ventricular hypertrophy. Asymmetric basal septal hypertrophy of the elderly (1.7 cm). Grade I diastolic dysfunction of the left ventricle (impaired relaxation pattern). Right Ventricle Mildly dilated right ventricle with normal RV systolic function. TAPSE is normal, 3.2 cm. Left Atrium Moderately dilated left atrium. Right Atrium Normal right atrial size. Atrial Septum Appears intact. Aortic Valve Tricuspid aortic valve without stenosis. Mild to moderate aortic regurgitation. Pulmonic Valve Trace pulmonary regurgitation. Estimated pulmonary arterial mean pressure is 15 mmHg. Mitral Valve Mild to moderate mitral valve regurgitation. Tricuspid Valve Mild tricuspid regurgitation. Mildly elevated pulmonary artery pressures, estimated PASP is 37 mmHg. Pericardium/Pleural No pericardial effusion. Inferior Vena Cava Normal IVC size and inspiratory collapse. Estimated right atrial pressure is 3 mmHg. Aorta The aortic root at the sinus of Valsalva is dilated measuring 4.0 cm with an index of 2.19 cm/m2. Left Ventricular Outflow Tract Name Value Normal LVOT 2D LVOT Diameter 2.1 cm LVOT Doppler LVOT Peak Velocity 1.15 m/s LVOT Peak Gradient 5 mmHg LVOT Mean Gradient 2 mmHg LVOT VTI 21.28 cm LVOT VTI/AV VTI Ratio 0.54 LVOT Stroke Volume 72.96 ml LVOT Stroke Volume Index 0.04 l/m2 LVOT Cardiac Output 5.40 l/min LVOT Cardiac Index 2.97 L/min/m2 Pulmonic Valve Name Value Normal PV 2D RVOT Diameter (2D) 3.2 cm 1.7-2.7 RVOT Doppler RVOT Peak Velocity 0.87 m/s PV Regurgitation Doppler SD Peak Velocity 1.74 m/s Mitral Valve Name Value Normal MV Doppler MV PHT 75 ms MV Diastolic Function MV E Peak Velocity 0.65 m/s <=0.50 MV A Peak Velocity 1.15 m/s MV E/A 0.57 <=0.80 MV Decel Time 259 ms Tricuspid Valve Name Value Normal TV Regurgitation Doppler TR Peak Velocity 2.90 m/s <=2.80 TR Peak Gradient 34 mmHg Estimated PAP/RSVP RA Pressure 3 mmHg <=5 PA Systolic Pressure 37 mmHg <40 PA Mean Pressure (SD Velocity) 15 mmHg TV Diastolic Function TV E Peak Velocity 0.53 m/s TV A Peak Velocity 0.44 m/s TV E/A 1.21 0.80-2.00 TV Decel Time 187 ms >=120 TV Annular TDI TV Lateral Little s' Velocity 14.0 cm/s 9.5-18.7 TV Lateral Little e' Velocity 15.2 cm/s <7.8 TV E/e' 3.47 2.00-6.00 Aorta Name Value Normal Ascending Aorta Sinus of Valsalva Diameter 4.0 cm 3.1-3.7 Sinus of Valsalva Index 2.19 cm/m2 1.50-1.90 Venous Name Value Normal IVC/SVC IVC Diameter (Insp 2D) 0.3 cm IVC Diameter (Exp 2D) 1.8 cm <=2.1 IVC Diameter Percent Change (2D) 83 % >=50 Aortic Valve Name Value Normal AV Doppler AV Peak Velocity 1.74 m/s <2.00 AV Peak Gradient 12 mmHg AV Mean Gradient 7 mmHg <20 AV VTI 39.25 cm AV Area (Cont Eq VTI) 1.9 cm2 >=2.0 AV Area Index (Cont Eq VTI) 1.02 cm2/m2 AV Area (Cont Eq Delfino) 2.3 cm2 AV Area Index (Cont Eq Delfino) 1.25 cm2/m2 AV V1/V2 Ratio 0.66 AV Regurgitation 2D LVOT Area 3.4 cm2 AV Regurgitation Doppler AR Decel Time 1,521 ms AR PHT 441 ms Ventricles Name Value Normal LV Dimensions 2D/MM IVS Diastolic Thickness (2D) 1.7 cm 0.6-1.0 LVID Diastole (2D) 4.3 cm 3.6-5.6 LVIW Diastolic Thickness (2D) 1.1 cm 0.6-1.0 LVID Systole (2D) 3.4 cm 2.5-4.0 LVOT Diameter 2.1 cm LV Mass (2D Cubed) 233.87 g 88.00-224.00 LV Mass Index (2D Cubed) 0.01 g/cm2 0.00-0.01 Relative Wall Thickness (2D) 0.51 LV Fractional Shortening/Ejection Fraction 2D/MM LV Fractional Shortening (2D) 20 % 25-43 LV Diastolic Volume (4C MOD) 146 ml LV Diastolic Volume (2C MOD) 132 ml LV Diastolic Volume (BP MOD) 137 ml 62-150 LV Diastolic Volume Index (BP MOD) 75.50 ml/m2 34.00-74.00 LV Systolic Volume (BP MOD) 62 ml 21-61 LV Systolic Volume Index (BP MOD) 33.98 ml/m2 11.00-31.00 LV EF (BP MOD) 50 % 57-68 LV SV (BP MOD) 75.49 ml LV End Diastolic Volume (BP A-L) 147.82 ml LV End Systolic Volume (BP A-L) 67.06 ml LV EF (BP A-L) 55 % RV Dimensions 2D/MM RV Basal Diastolic Dimension 4.5 cm 2.5-4.1 TAPSE 3.2 cm >=1.7 Atria Name Value Normal LA Dimensions LA Area (4C) 28.4 cm2 LA Length (4C) 6.3 cm LA Area (2C) 22.2 cm2 LA Length (2C) 6.0 cm LA Volume (4C A-L) 107.97 ml LA Volume (2C A-L) 69.45 ml LA Volume (BP A-L) 89 ml 18-58 LA Volume Index (BP A-L) 48.80 ml/m2 <=34.00 RA Dimensions RA Area (4C) 17.8 cm2 <=18.0 Final Signed by:DO Dent Jason D Signed (Electronic Signature):02/27/2024 9:25 a Echo TransTHORacic TTE Complete Report Signatures Finalized by Dr. Juan R Dent MD on 02/27/2024 05:48 PM [place] Act 112: Yes - Discussed with patient Summary 1. Ejection fraction as calculated by Biplane Simpsons method is 50%. (LV fxn is better in the 2C and worse in the 3 and 4 Chamber views). 2. Normal left ventricular chamber size and mildly reduced systolic function. 3. Abnormal septal motion worse than just [...] remains stable but degree of dysynchrony is worse. Patient Info Name: ANN-MARIE RODRIGES Age: 84 years : 1940 Gender: Male Ht: 170 cm Wt: 69 kg BSA: 1.82 m2 HR: 74 bpm BP: 160 / 96 mmHg Heart Rhythm: Sinus Rhythm Technical Quality: Good Exam Date: 02/27/2024 9:25 AM Exam [facility] Patient Status: Outpatient Staff Ordering Physician: [facility] Administrator: Kaylen Kim RDCS, RVT Attending Physician: [facility] Study Info CPT 49312 - 10660 - Indications I255 - Ischemic cardiomyopathy Procedure(s) * A complete two-dimensional, color flow and Doppler transthoracic echocardiogram was performed. * Strain Imaging was added to further interrogate the severity of disease. Exam Type: Cardiac Basic Left Ventricle Normal left ventricular chamber size and mildly reduced systolic function. Ejection fraction as calculated by Biplane Simpsons method is 50%. (LV fxn is better in the 2C and worse in the 3 and 4 Chamber views). Abnormal septal motion worse than just from the left bundle branch block. The inferior wall is hypokinetic. Abnormal Global endocardial peak longitudinal strain is mildly abnormal (-15%). Mild left ventricular hypertrophy. Asymmetric basal septal hypertrophy of the elderly (1.7 cm). Grade I diastolic dysfunction of the left ventricle (impaired relaxation pattern). Right Ventricle Mildly dilated right ventricle with normal RV systolic function. TAPSE is normal, 3.2 cm. Left Atrium Moderately dilated left atrium. Right Atrium Normal right atrial size. Atrial Septum Appears intact. Aortic Valve Tricuspid aortic valve without stenosis. Mild to moderate aortic regurgitation. Pulmonic Valve Trace pulmonary regurgitation. Estimated pulmonary arterial mean pressure is 15 mmHg. Mitral Valve Mild to moderate mitral valve regurgitation. Tricuspid Valve Mild tricuspid regurgitation. Mildly elevated pulmonary artery pressures, estimated PASP is 37 mmHg. Pericardium/Pleural No pericardial effusion. Inferior Vena Cava Normal IVC size and inspiratory collapse. Estimated right atrial pressure is 3 mmHg. Aorta The aortic root at the sinus of Valsalva is dilated measuring 4.0 cm with an index of 2.19 cm/m2. Left Ventricular Outflow Tract Name Value Normal LVOT 2D LVOT Diameter 2.1 cm LVOT Doppler LVOT Peak Velocity 1.15 m/s LVOT Peak Gradient 5 mmHg LVOT Mean Gradient 2 mmHg LVOT VTI 21.28 cm LVOT VTI/AV VTI Ratio 0.54 LVOT Stroke Volume 72.96 ml LVOT Stroke Volume Index 0.04 l/m2 LVOT Cardiac Output 5.40 l/min LVOT Cardiac Index 2.97 L/min/m2 Pulmonic Valve Name Value Normal PV 2D RVOT Diameter (2D) 3.2 cm 1.7-2.7 RVOT Doppler RVOT Peak Velocity 0.87 m/s PV Regurgitation Doppler SD Peak Velocity 1.74 m/s Mitral Valve Name Value Normal MV Doppler MV PHT 75 ms MV Diastolic Function MV E Peak Velocity 0.65 m/s <=0.50 MV A Peak Velocity 1.15 m/s MV E/A 0.57 <=0.80 MV Decel Time 259 ms Tricuspid Valve Name Value Normal TV Regurgitation Doppler TR Peak Velocity 2.90 m/s <=2.80 TR Peak Gradient 34 mmHg Estimated PAP/RSVP RA Pressure 3 mmHg <=5 PA Systolic Pressure 37 mmHg <40 PA Mean Pressure (SD Velocity) 15 mmHg TV Diastolic Function TV E Peak Velocity 0.53 m/s TV A Peak Velocity 0.44 m/s TV E/A 1.21 0.80-2.00 TV Decel Time 187 ms >=120 TV Annular TDI TV Lateral Little s' Velocity 14.0 cm/s 9.5-18.7 TV Lateral Little e' Velocity 15.2 cm/s <7.8 TV E/e' 3.47 2.00-6.00 Aorta Name Value Normal Ascending Aorta Sinus of Valsalva Diameter 4.0 cm 3.1-3.7 Sinus of Valsalva Index 2.19 cm/m2 1.50-1.90 Venous Name Value Normal IVC/SVC IVC Diameter (Insp 2D) 0.3 cm IVC Diameter (Exp 2D) 1.8 cm <=2.1 IVC Diameter Percent Change (2D) 83 % >=50 Aortic Valve Name Value Normal AV Doppler AV Peak Velocity 1.74 m/s <2.00 AV Peak Gradient 12 mmHg AV Mean Gradient 7 mmHg <20 AV VTI 39.25 cm AV Area (Cont Eq VTI) 1.9 cm2 >=2.0 AV Area Index (Cont Eq VTI) 1.02 cm2/m2 AV Area (Cont Eq Delfino) 2.3 cm2 AV Area Index (Cont Eq Delfino) 1.25 cm2/m2 AV V1/V2 Ratio 0.66 AV Regurgitation 2D LVOT Area 3.4 cm2 AV Regurgitation Doppler AR Decel Time 1,521 ms AR PHT 441 ms Ventricles Name Value Normal LV Dimensions 2D/MM IVS Diastolic Thickness (2D) 1.7 cm 0.6-1.0 LVID Diastole (2D) 4.3 cm 3.6-5.6 LVIW Diastolic Thickness (2D) 1.1 cm 0.6-1.0 LVID Systole (2D) 3.4 cm 2.5-4.0 LVOT Diameter 2.1 cm LV Mass (2D Cubed) 233.87 g 88.00-224.00 LV Mass Index (2D Cubed) 0.01 g/cm2 0.00-0.01 Relative Wall Thickness (2D) 0.51 LV Fractional Shortening/Ejection Fraction 2D/MM LV Fractional Shortening (2D) 20 % 25-43 LV Diastolic Volume (4C MOD) 146 ml LV Diastolic Volume (2C MOD) 132 ml LV Diastolic Volume (BP MOD) 137 ml 62-150 LV Diastolic Volume Index (BP MOD) 75.50 ml/m2 34.00-74.00 LV Systolic Volume (BP MOD) 62 ml 21-61 LV Systolic Volume Index (BP MOD) 33.98 ml/m2 11.00-31.00 LV EF (BP MOD) 50 % 57-68 LV SV (BP MOD) 75.49 ml LV End Diastolic Volume (BP A-L) 147.82 ml LV End Systolic Volume (BP A-L) 67.06 ml LV EF (BP A-L) 55 % RV Dimensions 2D/MM RV Basal Diastolic Dimension 4.5 cm 2.5-4.1 TAPSE 3.2 cm >=1.7 Atria Name Value Normal LA Dimensions LA Area (4C) 28.4 cm2 LA Length (4C) 6.3 cm LA Area (2C) 22.2 cm2 LA Length (2C) 6.0 cm LA Volume (4C A-L) 107.97 ml LA Volume (2C A-L) 69.45 ml LA Volume (BP A-L) 89 ml 18-58 LA Volume Index (BP A-L) 48.80 ml/m2 <=34.00 RA Dimensions RA Area (4C) 17.8 cm2 <=18.0 Final Signed by:DO Dent Jason D Signed (Electronic Signature):02/27/2024 9:25 a Social History Social History Type Response Smoking Status Former Smoker, quit > 1 yr Sex Male Sex Representation Male (finding) Patient Care team information Care Team Personnel Name: Won Wesley DO, Mariana Annette Position: Physician - Family Med Member Role: Primary Care Provider Address: [address] [place] [address] [place] Name: HALEIGH Moss Lynn Position: Physician Print Line Inspector Exempt - Vasc Surg Member Role: Lifetime Relationship Address: [address] [place] [address] Care Team Related Persons Name: SHEREE RODRIGES
--- OUTSIDE RECORDS SUMMARY | 2024-05-15 07:14 | External Medical Summary | Summary of Care ---
Author Name Unknown Organization [facility] Address [address] [place] [address] Phone [phone] Care Team Providers Care Service Aide Name Role Phone Omero Blood MD Primary Care Provider [phone] Reason for Visit * Reason Onset Date Comments Follow Up 01/24/2024 Encounter Details Date Type Department Care Team (Late st Contact Info) Description 01/24/2024 11:00 AM EDT Scheduled Telephone Interventional [facility], [facility] [address] [facility] [place] [address] [place] Nurse Phone Call Interventional Pain [facility] [address] [facility] [place] [address] Allergies No known active allergiesdocumented as of this encounter (statuses as of 01/24/2024) Medications Medication Sig Dispensed Refills Start Date End Date Status OMEPRAZOLE 20 MG PO CPDR Active GLUCOSAMINE CHONDROITIN COMPLX PO CAPS 1 TABLET DAILY Active MULTIVITAMINS PO TABS 1 TABLET DAILY Active VYTORIN 10-20 MG PO TABS 1/2 tablet daily Active FLOMAX 0.4 MG PO [id number]:Nodu lar prostate with urinary obstruction 1 capsule a day by mouth 90 3 06/11/2009 Active AVAPRO 300 MG PO TABS Take 0.5 Tablets by mouth. Active FISH OIL 1000 MG PO CAPS One three times a day Active METOPROLOL TARTRATE 25 MG PO TABS One half tablet twice a day Active Aspirin 81 MG Tablet Take 1 Tablet by mouth in the morning. Active Terazosin HCl 2 MG Capsule Take 1 Cap by mouth at bedtime. For 3 nights then 2 caps at bedtime for 5 nights 13 Cap 0 01/06/2016 Active Additional Information Patient not taking.Reported on 10/12/2023 terazosin (HYTRIN) 5 MG Capsule Take 1 Cap by mouth at bedtime. Start after finishing 2 mg and 4mg doses 30 Cap 1 01/06/2016 Active Calcium 500-125 MG-UNIT Tablet Take 1 Tab by mouth daily. Active amLODIPine Besylate 10 MG Oral Tablet (Norvasc) Take 0.5 Tablets by mouth in the morning. 06/18/2021 Active hydroCHLOROthiazide 25 MG Oral Tablet (Hydrodiuril) Take 1 Tablet by mouth in the morning. 06/09/2021 Active Omeprazole Magnesium 20 MG Oral Tablet Delayed Release (PriLOSEC OTC) Take by mouth 20 mg in the morning. Active Rosuvastatin Calcium 40 MG Oral Tablet (Crestor) Take 1 Tablet by mouth at bedtime. Active Carvedilol 12.5 MG Oral Tablet (Coreg) Take 1 Tablet by mouth in the morning and 1 Tablet before bedtime. Active Irbesartan 150 MG Oral Tablet (Avapro) Take 1 Tablet by mouth at bedtime. Active documented as of this encounter (statuses as of 01/24/2024) Active Problems Problem Noted Date Diagnosed Date Chest pain 12/31/2023 ADVANCE DIRECTIVE INFORMATION 09/24/2009 Overview: Yes, Patient instructed to provide copy of advance directive for provider to review and to be scanned into Electronic Medical Record Bilateral inguinal hernia 12/25/2008 Other specified gastritis without mention of hem orrhage 11/13/2006 documented as of this encounter (statuses as of 01/24/2024) Immunizations Name Administration Dates Next Due COVID-19 mRNA, LNP-s, No Pre serve, 2-Dose Series (Moderna) 10/05/2020,09/01/2020 documented as of this encounter Social History Tobacco Use Types Packs/Day Years Used Date Smoking Tobacco: Former Smokeless Tobacco: Former Snuff Comments:quit 4 months ago Alcohol Use Standard Drinks/Week Comments Yes 0 (1 standard drink = 0.6 oz pur e alcohol) socially Sex and Gender Information Value Date Recorded Sex Assigned at Not on file Gender Identity Not on file Sexual Orientation Not on file Job Start Date Occupation Industry Not on file Not on file Not on file documented as of this encounter Miscellaneous Notes * Telephone Encounter - Ilda Torrez PA-C - 01/24/2024 11:56 AM EDT Noted, do not recommend further JAVIER for LE pain if treatment for restless leg syndrome has dramatically improved. Unsure we would have further injection options for him. Hx of recent injections with [facility] also withminimal relief. * Telephone Encounter - Fabby Aleman LPN - 01/24/2024 10:37 AM EDT Patient reports no improvement after L4/5 interlaminar epidural steroid injection on the left side.Has to still wear back support/TENS unit. Patient got leg pain taken care with RLS meds-very upset that it took this many years and providers.to figure that out. Still has back pain but does not wish to pursue at this time. Will call if needed in future. documented in this encounter Plan of Treatment Upcoming Encounters Date Type Department Care Team (Late st Contact Info) Description 01/26/2024 9:20 AM EDT Office Visit Neurology [facility] [address] [facility] [address] Reuben Curran, [address] [facility] [place] [address] Health Maintenance Due Date Last Done Comments Depression Screening 1952 DTaP,Tdap,and Td Vaccines (3 - Tdap) 08/24/2015 08/24/2005, 04/30/1995 COVID-19 Vaccine ( - 2022-2 4 season) 2023 10/05/2020, 09/01/2020 Influenza Vaccine (FLU shot) (Season Ended) 2024 Zoster Vaccines Completed 02/10/2022, 12/02/2021 Pneumococcal Vaccine: 65+ Years Completed 04/27/2022 GARDASIL-HPV IMMUNIZATION SERIES Aged Out No longer eligible b ased on patient's age to complete this topic Hepatitis B Aged Out No longer eligi ble based on patient's age to complete this topic MENINGOCOCCAL (MENACTRA/MENVEO) Aged Out No longer eligible b ased on patient's age to complete this topic documented as of this encounter Medical Devices Implanted Type Area Tourist Cabin Keeper Device Identifier Shelf Expiration Date Model / Serial / Lot Lens 16.5 Mx60 - [id number] - [id number] Implanted:Qty: 1 on 01/18/2017 by George Mar MD at [facility] Right: Eye [employer]OM[employer] : SURGICAL 07/30/2017 MX60-16.5 / [id number] / documented as of this encounter Advance Directives * Full Code (Latest Code Status on File) Date Activated Date Inactivated Comments 01/18/2017 7:19 AM 01/18/2017 1:16 PM This order r eflects the patients wishes and were consensually agreed upon. Care Teams Service Aide Relationship Specialty Start Date End Date Omero Blood MD [address] [address] PCP - General Sports Medicine 12/27/23 documented as of this encounter
--- OUTSIDE RECORDS SUMMARY | 2024-05-15 07:14 | External Medical Summary | Continuity of Care Document ---
Author Name Unknown Organization [facility] [address] [facility] Address [address], [place] [id number] Care Team Providers Care Hadoop Infrastructure Architect Name Role Phone Karen Hannah Primary Care emery [phone] Encounter [facility] [phone] Date(s): 01/23/24 - 01/23/24 [facility] [address], [address] [place] [address] [phone] Encounter Diagnosis Restless leg(Discharge Diagnosis) - 01/23/24 Anemia(Discharge Diagnosis) - 01/23/24 Ischemic cardiomyopathy(Discharge Diagnosis) - 01/23/24 HLD (hyperlipidemia)(Discharge Diagnosis) - 01/23/24 CAD in [place] artery(Discharge Diagnosis) - 01/23/24 Discharge Disposition: Home or Self Care Attending Physician: MARRY Leiva Sarah A Allergies, Adverse Reactions, Alerts No Known Medication Allergies Assessment and Plan Extracted from: Title:Cardiology Office Visit Note Author:MARRY Garcia rd, Sarah A Date:01/23/24 Impression: 1. Coronary artery disease withcatheterization10/10/2022 with70% diffuse first diagonal stenosis, 95% distal LAD stenosis, small nondominant RCA that was diffusely diseased. 2. Labile blood pressures 3. Dyslipidemia 4. PET/CT October 07 2022 with small area of distal RCA territory ischemia, normal wall motion with ejection fraction of 54% at rest, left bundle branch block 5. LBBB Mr. Banerjee's troponin elevation at the hospital was negligible and likely due to demand ischemia in the setting of stress. He was without any anginal symptoms at the time and denies any since. His EKG today shows his known LBBB and is unchanged. The hydralazine was making him lightheaded so he discontinued it. His blood pressures are stable so he can stay off of it. He was mildly anemic at the hospital and with restless leg, I will check iron studies. He will also have lipids and LFTs. He continue on rosuvastatin. He'll return to the clinic in 3 months. Immunizations Given and Recorded Vaccine Date Status [...] bid, Disp# 180 tab, Refills: 3, Pharmacy: [facility] Start Date: 10/17/23 Status: Ordered Fish Oil 1000 mg oral capsule Start: 06/10/15 1:01:00 PM EST Start Date: 06/10/15 Status: Ordered Flomax 0.4 mg oral capsule Start: 09/25/23 10:28:00 AM EST, 1 cap, PO, Daily, Disp# 90 cap, Refills: 3, Pharmacy: [facility] Start Date: 09/25/23 Status: Ordered irbesartan 150 mg oral tablet Start: 04/28/23 11:10:00 AM EDT, 1 tab, PO, Daily, Disp# 90 tab, Refills: 3, Pharmacy: [facility] Start Date: 04/28/23 Status: [...] PRN: as needed for chest pain, Pharmacy: [facility] Start Date: 04/28/23 Status: Ordered omeprazole 20 mg oral delayed release capsule Start: 10/17/23 10:50:00 AM EDT, 1 cap, PO, Daily, Disp# 90 cap, Refills: 3, Pharmacy: [facility] Start Date: 10/17/23 Status: Ordered rOPINIRole 1 mg oral tablet Start: 01/08/24 4:40:00 PM EDT, 1 tab, PO, Daily, Disp# 90 tab, 1 to 3 hours before bedtime, to be used with 0.25 mg tab for total dose of 1.25 mg nightly., Pharmacy: [facility] Start Date: 01/08/24 Status: Ordered rosuvastatin 40 mg oral tablet Start: 10/17/23 10:50:00 AM EDT, 1 tab, PO, qhs, Disp# 90 tab, Refills: 3, Pharmacy: [facility] Start Date: 10/17/23 Status: Ordered Mental Status 01/23/24 Barriers to Learning one year None evide nt Mandatory Health Literacy Documentation Yes Health Literacy Communication Barriers N ever Primary Language Nigerien Problem List Condition Confirmation Course Effective Dates [...] Effective Dates Health Status Clinical Service Informant Restless leg Discharge Diagnosis 01/23/24 Non-Specified Anemia Discharge Diagnosis 01/23/24 Non-Specified HLD (hyperlipidemia) Discharge Diagnosis 01/23/24 Non-Specified Ischemic cardiomyopathy Discharge Diagnosis 01/23/24 Non-Specified CAD in [place] artery Discharge Diagnosis 01/23/24 Non-Specified Procedures Procedure Date Related Diagnosis Body Site Status CT of abdomen and pelvis 1 02/24/18 Completed Shoulder 2 04/17/17 Completed Endoscopy 3 08/10/16 Completed Prostate biopsy needle 4 02/22/16 Completed Neck repair 1999 Completed Hernia repair x [id number] Completed Arm repair 1994 Completed History of [...] to oldest [Reference Range]: 1 Patient Weight 70.7 kg (01/23/24 9:13 AM) Heart Rate 60 bpm (01/23/24 9:13 AM) Respiratory Rate 18 br/min (01/23/24 9:13 AM) Blood Pressure 138/84mmHg (01/23/24 9:13 AM) Cuff Pulse Pressure 54 mmHg (01/23/24 9:13 AM) BP Location # 1 Left Arm (01/23/24 9:13 AM) Social History Social History Type Response Smoking Status Former Smoker, quit > 1 yr Sex Male Cardiology * Contributor_system, MUSE01: VERIFY, PERFORM Event Display: EKG Authored Date: Please click on link to see image. Cardiology Outpatient Note * MARRY LeivaMary Nanette: PERFORM, MODIFY, MODIFY Event Display: Cardiology Outpt Note Authored Date: [id number] Primary Care Provider Won Wesley DO, Mariana Annette Chief Complaint discuss medication, quit taking hydralazine, now taking ropinerole prescribed by seeingDr. Dennys Camp tomorrow History of Present Illness Mr. Banerjee presents for hospital follow up. He presented to [facility] on 12/29 for terrible leg pain. This has been progressive over thelast two years. He had troponins drawn which were marginally elevated and it was recommended that he be admitted but he declined. Review of his hospitalization revealslab work including high sensitivity trop 28, 29, ck 320,mag 2.2, tsh1.97,[id number],h&h12.8and38.4, He has found relief from his leg pain at night with ropinirole prescribed by his PCP. He is actually taking 2 mg at night instead of the 1 mg prescribed. He does not ever have pain with walking, it is always with rest Review of Systems All other systems reviewed and negative except as discussed in the HPI Physical Exam Vitals & Measurements HR:60(Monitored) RR:18 BP:138/84 SpO2:97% WT:70.700kg(Dosing) WT:70.7kg Physical Examination General: Alert and oriented, No acute distress. Respiratory: Lungs are clear to auscultation, Respirations are non-labored. Cardiovascular: Normal rate, Regular rhythm, No murmur, No edema, no carotid bruits to auscultation bilaterally. Integumentary: Warm, Dry, What [place]er Neurologic: Alert, Oriented. Cognition and Speech: Speech clear and coherent. Psychiatric: Cooperative, Appropriate mood & affect. Assessment/Plan Impression: 1. Coronary artery disease withcatheterization10/10/2022 with70% diffuse first diagonal stenosis, 95% distal LAD stenosis, small nondominant RCA that was diffusely diseased. 2. Labile blood pressures 3. Dyslipidemia 4. PET/CT October 07 2022 with small area of distal RCA territory ischemia, normal wall motion with ejection fraction of 54% at rest, left bundle branch block 5. LBBB Mr. Banerjee's troponin elevation at the hospital was negligible and likely due to demand ischemia in the setting of stress. He was without any anginal symptoms at the time and denies any since. His EKGtoday shows his known LBBB and is unchanged. The hydralazine was making him lightheaded so he discontinued it. His blood pressures are stable sohe can stay off of it. He was mildly anemic at the hospital and with restless leg, I will check iron studies. He will also have lipids and LFTs. He continue on rosuvastatin. He'll return to the clinic in 3 months. Problem List/Past Medical History Ongoing Arthritis Cardiomyopathy Coronary artery disease History of panic attacks History of prostate cancer Hyperlipidemia Hypertension Lumbar disc herniation Nevus Restless leg syndrome Superficial thrombophlebitis Varicose veins of legs Procedure/Surgical History CT of abdomen and pelvis| Service Date: 02/24/2018Shoulder| Service Date: 04/17/2017Endoscopy| Service Date: 08/10/2016Prostate biopsy needle| Service Date: 02/22/2016Neck repair| Service Date: 1999Hernia repair x [id number]| Service Date: 1995Arm repair| Service Date: 1994History [...] Nighttime Sleep Aid) hydrALAZINE(hydrALAZINE 10 mg oral tablet), 10 mg= 1 tab, PO, bid, 3 refills irbesartan(irbesartan 150 mg oral tablet), 150 mg= [...] Known Medication Allergies Social History Smoking Status Former Smoker, quit > 1 yr Family History Health Status Family Member(s) Family Member(s) Relationship: Mother, Age: 89 Years, Cause: CVA Relationship: Father, Age: Unknown, Cause: CVA Electronic Signature on File CC: Karen Wesley DO [address] [place] [address] Electronically Reviewed/Signed by: MARRY Harp Author Signature Dt/Tm:01/23/2024 10:36 AM [facility] Patient Care team information Care Team Personnel Name: Won Wesley DO, Mariana Annette Position: Physician - Family Med Member Role: Primary Care Provider Address: Address: [address] [place] [address] [place] Name: HALEIGH Moss Lynn Position: Physician Police Superintendent Exempt - Vasc Surg Member Role: Lifetime Relationship Address: Address: [address] [place] [address] Care Team Related Persons Name: ANTELMO SHEREE Address: home [address], [place] [id number]"
--- OUTSIDE RECORDS SUMMARY | 2024-05-15 07:14 | External Medical Summary | Summary of Care ---
Author Name Unknown Organization [facility] Address [address] [place] [address] Phone [phone] Care Team Providers Care Tester Operator Name Role Phone Omero Blood MD Primary Care Provider [phone] Encounter Details Date Type Department Care Team (Late st Contact Info) Description 02/26/2024 Orders Only Outcomes Research Department [address], [place] [id number] Dorota Vega CHRA [employer] Other*[id number] Allergies No known active allergiesdocumented as of this encounter (statuses as of 02/26/2024) Medications Medication Sig Dispensed Refills Start Date End Date Status OMEPRAZOLE 20 MG PO CPDR Active GLUCOSAMINE CHONDROITIN COMPLX PO CAPS 2 times a day. Active MULTIVITAMINS PO TABS 1 TABLET DAILY Active VYTORIN 10-20 MG PO TABS 1/2 tablet daily Active FLOMAX 0.4 MG PO [id number]:Nod ular prostate with urinary obstruction 1 capsule a [...] 4mg doses 30 Cap 1 01/06/2016 Active Additional Information Patient not taking.Reported on 01/26/2024 Calcium 500-125 MG-UNIT Tablet Take 1 Tablet by mouth in the morning and 1 Tablet before bedtime. Active amLODIPine Besylate 10 MG Oral Tablet (Norvasc) Take 0.5 Tablets by mouth in the morning. 06/18/2021 Active hydroCHLOROthiazide 25 MG Oral Tablet (Hydrodiuril) Take 1 Tablet by mouth in the morning. 06/09/2021 Active Omeprazole Magnesium 20 MG Oral Tablet Delayed Release (PriLOSEC OTC) Take 1 Tablet by mouth in the morning. Active Rosuvastatin Calcium 40 MG Oral Tablet (Crestor) Take 1 Tablet by mouth at bedtime. Active Carvedilol 12.5 MG Oral Tablet (Coreg) Take 1 Tablet by mouth in the morning and 1 Tablet before bedtime. Active Irbesartan 150 MG Oral Tablet (Avapro) Take 1 Tablet by mouth at bedtime. Active Doxylamine Succinate (Sleep) 25 MG Oral Tablet (Sleep Aid) Take 1 Tablet by mouth at bedtime. Active rOPINIRole HCl 1 MG Oral Tablet (Requip)Indications :RLS (restless legs syndrome) Take 2.5 Tablets by mouth at bedtime. 225 Tablet 3 01/26/2024 Active documented as of this encounter (statuses as of 02/26/2024) Active Problems Problem Noted Date Diagnosed Date Chest pain 12/31/2023 ADVANCE DIRECTIVE INFORMATION 09/24/2009 Overview: Yes, Patient instructed to provide copy of advance directive for provider to review and to be scanned into Electronic Medical Record Bilateral inguinal hernia 12/25/2008 Other specified gastritis without mention of hem orrhage 11/13/2006 documented as of this encounter (statuses as of 02/26/2024) Immunizations Name Administration Dates Next Due COVID-19 [...] on file documented as of this encounter Plan of Treatment Upcoming Encounters Date Type Department Care Team (Late st Contact Info) Description 01/24/2025 8:40 AM EDT Office Visit Neurology [facility] [place] [address] [facility] [place] [address] Reuben Curran, [address] [facility] [place] [address] Scheduled Orders Name Type Priority Associated Diagnoses Orde r Schedule MYCODE INITIAL ADULT Lab Routine [facility] Research Other*[id number] Expected: 02/26/2024 (Approximate), Expires: 03/17/2025 Health Maintenance Due Date Last Done Comments Depression Screening 1952 DTaP,Tdap,and Td Vaccines (3 - Tdap) 08/24/2015 08/24/2005, 04/30/1995 COVID-19 Vaccine (3 - 2022-2 4 season) 2023 10/05/2020, 09/01/2020 Influenza Vaccine (FLU shot) (#1) 2024 Zoster Vaccines Completed 02/10/2022, 12/02/2021 Pneumococcal Vaccine: 65+ Years Completed 04/27/2022 HPV (Gardasil) Vaccine Aged Out No lo nger eligible based on patient's age to complete this topic Hepatitis B Vaccine Aged Out No longe r eligible based on patient's age to complete this topic MENINGOCOCCAL (MENACTRA/MENVEO) Aged Out No longer eligible b ased on patient's age to complete this topic documented as of this encounter Medical Devices Implanted Type Area Desulfurizer Machine Device Identifier Shelf Expiration Date Model / Serial / Lot Lens 16.5 Mx60 - [id number] - [id number] Implanted:Qty: 1 on 01/18/2017 by George Mar MD at OR [facility] Right: Eye [employer] : SURGICAL 07/30/2017 MX60-16.5 / [id number] / documented as of this encounter Visit Diagnoses Diagnosis [facility] Other*[id number] documented in this encounter Advance Directives * Full Code (Latest Code Status on File) Date Activated Date Inactivated Comments 01/18/2017 7:19 AM 01/18/2017 1:16 PM This order r eflects the patients wishes and were consensually agreed upon. Care Teams Tester Operator Relationship Specialty Start Date End Date Omero Blood MD [address] [place] [address] PCP - General Sports Medicine 12/27/23 documented as of this encounter
--- OUTSIDE RECORDS SUMMARY | 2024-05-15 07:14 | External Medical Summary | Summary of Care ---
Author Name Unknown Organization [facility] Address [address] [place] [address] Phone [phone] Care Team Providers Care Medical Sales Consultant Name Role Phone Omero Blood MD Primary Care Provider [phone] Reason for Visit * Reason Comments Outpatient Testing Encounter Details Date Type Department Care Team (Late st Contact Info) Description 01/26/2024 8:50 AM EDT Laboratory Laboratory [facility] [address] [place] [phone] [facility] [address] [place] [address] Arrived Allergies No known active allergiesdocumented as of this encounter (statuses as of 01/26/2024) Medications Medication Sig Dispensed Refills Start Date End Date Status OMEPRAZOLE 20 MG PO CPDR Active GLUCOSAMINE CHONDROITIN COMPLX PO CAPS 2 times a day. Active MULTIVITAMINS PO TABS 1 TABLET DAILY Active VYTORIN 10-20 MG PO TABS 1/2 tablet daily Active FLOMAX 0.4 MG PO [id number]:Nod ular prostate with urinary obstruction 1 capsule [...] as of this encounter (statuses as of 01/26/2024) Active Problems Problem Noted Date Diagnosed Date Chest pain 12/31/2023 ADVANCE DIRECTIVE INFORMATION 09/24/2009 Overview: Yes, Patient instructed to provide copy of advance directive for provider to review and to be scanned into Electronic Medical Record Bilateral inguinal hernia 12/25/2008 Other specified gastritis without mention of hem orrhage 11/13/2006 documented as of this encounter (statuses as of 01/26/2024) Immunizations Name Administration Dates Next Due COVID-19 [...] AM EDT Office Visit Neurology [facility] [place] [address] [place] [address] Reuben Curran, DO [address] [place] [address] Health Maintenance Due Date Last Done Comments [...] this encounter Medical Devices Implanted Type Area Animal Tech Device Identifier Shelf Expiration Date Model / Serial / Lot Lens 16.5 Mx60 - [id number] - [id number] Implanted:Qty: 1 on 01/18/2017 by George Mar MD at OR [facility] Right: Eye [employer] : SURGICAL 07/30/2017 MX60-16.5 / [id number] / documented as of this encounter Advance Directives * Full Code (Latest Code Status on File) Date Activated Date Inactivated Comments 01/18/2017 7:19 AM 01/18/2017 1:16 PM This order r eflects the patients wishes and were consensually agreed upon. Care Teams Medical Sales Consultant Relationship Specialty Start Date End Date Omero Blood MD [address] [address] PCP - General Sports Medicine 12/27/23 documented as of this encounter
--- OUTSIDE RECORDS SUMMARY | 2024-05-15 07:14 | External Medical Summary | Summary of Care ---
Author Name Unknown Organization [facility] Address [address] [place] [address] Phone [phone] Care Team Providers Care Rating Officer Name Role Phone Omero Blood MD Primary Care Provider [phone] Reason for Visit * Reason Comments NEW PATIENT Neuropathy Restless Leg Syndrome * Evaluate & Treat - Unlimited Visits (Within 10 days (routine)) - Authorized Specialty Diagnoses / Procedures Referred By Mariya quarles Referred To Contact Neurology Diagnoses RLS (restless legs syndrome) Radiculopathy Neuropathy Omero Blood MD [address] [address] Referral ID Status Reason Start Date Expiration Date Visits Requested Visits Authorized [id number] Authorized Specialty Services Required 01/11/2024 [id number] Encounter Details Date Type Department Care Team (Late st Contact Info) Description 01/26/2024 9:20 AM EDT Office Visit Neurology [facility] [address] [facility] [place] [address] Reuben Curran DO [address] [place] [address] RLS (restless legs syndrome)* Allergies No known active allergiesdocumented as of this encounter (statuses as of 01/26/2024) Medications Medication Sig Dispensed Refills Start Date End Date Status OMEPRAZOLE 20 MG PO CPDR Active GLUCOSAMINE CHONDROITIN COMPLX PO CAPS 2 times a day. Active MULTIVITAMINS PO TABS 1 TABLET DAILY Active VYTORIN 10-20 MG PO TABS 1/2 tablet daily Active FLOMAX 0.4 MG PO [id number]:Nod ular prostate with urinary obstruction 1 capsule [...] on file documented as of this encounter Last Filed Vital Signs Vital Sign Reading Time Taken Comments Blood Pressure 142/82 01/26/2024 9:08 AM EDT Pulse 90 01/26/2024 9:08 AM EDT Temperature 36.7 C (98 F) 01/26/2024 9:08 AM EDT Respiratory Rate 16 01/26/2024 9:08 AM EDT Oxygen Saturation 97% 01/26/2024 9:08 AM EDT Inhaled Oxygen Concentration - - Weight 70.9 kg (156 lb 3.2 oz) 01/26/2024 9:08 A M EDT Height - - Body Mass Index 24.46 12/27/2023 10:37 AM EDT documented in this encounter Progress Notes * Reuben Curran, DO - 01/26/2024 9:12 AM EDT HISTORY AND PHYSICAL EXAMINATION [place] [address] NAME: Laci Banerjee Date of : 1940 Date of Visit: 01/26/24 Chief Complaint: Chief Complaint Patient presents with NEW PATIENT Neuropathy Restless Leg Syndrome HPI: An 83-year-old male with restless leg syndrome referred for evaluation of restless leg syndrome. Consultation was requested by Dr. Blood who receive a copy this note. Patient presents alone today. Has been suffering from restless leg syndrome for number of years. He is currently taking ropinirole 2.5 mg nightly which is essentially relieved his symptoms. Prior to starting this medication hewould spend most of the night of walking. Burning pain in legs 1.5 hours after bedtime. Saw pain management. Walking helps. Works all day long and does not affect him. If he sits for a while it bothers him. HOME MEDICATIONS : Current Outpatient Medications Medication Sig Dispense Refill OMEPRAZOLE 20 MG PO CPDR GLUCOSAMINE CHONDROITIN COMPLX PO CAPS 2 times a day. MULTIVITAMINS PO TABS 1 TABLET DAILY FLOMAX 0.4 MG PO CP24 1 capsule a day by mouth 90 3 FISH OIL 1000 MG PO CAPS One three times a day Aspirin 81 MG Tablet Take 1 Tablet by mouth in the morning. Calcium 500-125 MG-UNIT Tablet Take 1 Tablet by mouth in the morning and 1 Tablet before bedtime. amLODIPine Besylate 10 MG Oral Tablet (Norvasc) Take 0.5 Tablets by mouth in the morning. Omeprazole Magnesium 20 MG Oral Tablet Delayed Release (PriLOSEC OTC) Take 1 Tablet by mouth in themorning. Rosuvastatin Calcium 40 MG Oral Tablet (Crestor) Take 1 Tablet by mouth at bedtime. Carvedilol 12.5 MG Oral Tablet (Coreg) Take 1 Tablet by mouth in the morning and 1 Tablet before bedtime. Irbesartan 150 MG Oral Tablet (Avapro) Take 1 Tablet by mouth at bedtime. Doxylamine Succinate (Sleep) 25 MG Oral Tablet (Sleep Aid) Take 1 Tablet by mouth at bedtime. VYTORIN 10-20 MG PO TABS 1/2 tablet daily (Patient not taking: Reported on 08/07/2023) AVAPRO 300 MG PO TABS Take 0.5 Tablets by mouth. (Patient not taking: Reported on 10/12/2023) METOPROLOL TARTRATE 25 MG PO TABS One half tablet twice a day (Patient not taking: Reported on 08/07/2023) Terazosin HCl 2 MG Capsule Take 1 Cap by mouth at bedtime. For 3 nights then 2 caps at bedtime for 5 nights (Patient not taking: Reported on 10/12/2023) 13 Cap 0 terazosin (HYTRIN) 5 MG Capsule Take 1 Cap by mouth at bedtime. Start after finishing 2 mg and 4mg doses (Patient not taking: Reported on 01/26/2024) 30 Cap 1 hydroCHLOROthiazide 25 MG Oral Tablet (Hydrodiuril) Take 1 Tablet by mouth in the morning. (Patientnot taking: Reported on 08/07/2023) No current facility-administered medications for this visit. Review of patient's allergies indicates: No Known Allergies Past Medical History: Diagnosis Date Dyslipidemia, goal LDL below 160 Hypercholesterolemia HTN, goal below 140/90 Hypertension, benign Other specified gastritis without mention of hemorrhage 11/13/06 Past Surgical History: Procedure Laterality Date EGD, FLEXIBLE, W/BIOPSY 11/13/2006 path-mild chronic inflammation of stomach INFORMATION 07/31/1989 Neck Surgery INFORMATION 07/31/1989 Back Surgery L-3 INFORMATION 07/31/1981 Head Surgery INJECT DX/THER SUBSTANCE INTERLAMINAR LUMBAR/SACRAL W IMAGE GUIDE 08/07/2023 INJECTION SPINE LUMBAR OR SACRAL performed by Aubrey Bernard DO at [facility] INJECT DX/THER SUBSTANCE INTERLAMINAR LUMBAR/SACRAL W IMAGE GUIDE 12/27/2023 INJECTION SPINE LUMBAR OR SACRAL performed by Aubrey Bernard DO at OR [facility] REMOVE CATARACT, INSERT LENS PROSTH Right 01/18/2017 right EXTRACAPSULAR CATARACT REMOVAL WITH INTRAOCULAR LENS performed by George Mar MD at OR [facility] REPAIR INITIAL INGUINAL HERNIA REDUCIBLE AGE 5 OR MORE 07/31/1989 Inguianl hernia Repair, age 5+ yr REPAIR INITIAL INGUINAL HERNIA REDUCIBLE AGE 5 OR MORE 06/05/2009 Laparoscopic repair of left recurrent hernia and right indirect hernia and umbilical hernia repair 06/05/[address] [place] [facility] [place]ED[place] NEC 07/2022 lumbar-mark NINA UMBIL HERNIA REPAIR (REDUCIBLE) AGE 5+YR 06/05/2009 Incarcerated umbilical hernia 06/05/09[place] [facility] No family history on file. Social History Socioeconomic History Marital status: Spouse name: Not on file Number of children: Not on file Years of education: Not on file Highest education level: Not on file Occupational History Not on file Tobacco Use Smoking status: Former Smokeless tobacco: Former Types: Snuff Tobacco comments: quit 4 months ago Substance and Sexual Activity Alcohol use: Yes Comment: socially Drug use: No Sexual activity: Yes Other Topics Concern Not on file Social History Narrative Not on file Social Determinants of Health Financial Resource Strain: Not on file Food Insecurity: Not on file Transportation Needs: Not on file Social Connections: Unknown (01/26/2024) Social Connections How often do you feel lonely or isolated from those around you? (Adult - for ages 18 years and over): Not on file Housing Stability: Not on file ROS: Negative except as noted above in the HPI PHYSICAL EXAMINATION: Vital Signs: BP 142/82 | Pulse 90 | Temp 36.7 C (98 F) (Tympanic) | Resp 16 | Wt 70.9 kg (156 lb 3.2 oz) | SpO2 97% | BMI 24.46 kg/m | BSA 1.83 m EXAM: Constitutional: appearance normally developed, well nourished and non-obese Head and Face: normocephalic and atraumatic Eyes: normal lids, normal conjunctiva Neck: supple Respiratory: normal effort Cardiovascular: normal pulses Abdomen: non distended Skin: no rashes, lesions, or ulcers noted Psychiatric: normal judgement and insight, normal mood and normal affect NEUROLOGIC EXAMINATION: Appearance: no acute distress Orientation: awake, alert and oriented x 3 Mental Status: alert Attention: normal Knowledge: appropriate Language: no aphasia Speech: no dysarthria Cranial Nerves: CN 2 - no visual defect on confrontation and pupils round, equal, reactive to light CN 3, 4, 6 - extra-ocular movements intact and no nystagmus CN 5 - facial sensation intact CN 7 - no facial asymmetry CN 8 - intact hearing CN 9, 10 - palate symmetric CN 11 - good shoulder shrug CN 12 - tongue midline Gait: stable, no ataxia Coordination: no ataxia with finger to nose testing Sensory: intact to light touch Muscle Tone: normal Muscle exam: no focal motor weakness or muscle atrophy Reflexes: 3+ at both knees, no ankle clonus, Julienne sign is negative LABORATORY: Labs reviewed and pertinent findings are indicated below: Review of prior Diagnostic Tests: Review of prior Radiology Studies: IMPRESSION / PLAN: Laci was seen today for new patient, neuropathy and restless leg syndrome. Diagnoses and all orders for this visit: RLS (restless legs syndrome) - FERRITIN - rOPINIRole HCl 1 MG Oral Tablet (Requip); Take 2.5 Tablets by mouth at bedtime. Laci Banerjee is a very pleasant 83-year-old male with restless leg syndrome currently well-controlled with ropinirole 2.5 mg nightly. On examination he has intact and symmetric reflexes at both knees.Clinical symptoms sound consistent with restless leg syndrome. Will check a ferritin level today. Will arrange for follow-up in 1 year sooner if needed. Thank you for allowing me to participate in his care. Reuben Curran DO documented in this encounter Nursing Notes * Candice Boggs, MED ASSIST - 01/26/2024 9:04 AM EDT Chief Complaint Patient presents with NEW PATIENT Neuropathy Restless Leg Syndrome documented in this encounter Plan of Treatment Upcoming Encounters Date Type Department Care Team (Late st Contact Info) Description 01/24/2025 8:40 AM EDT Office Visit Neurology [facility] [place] [address] [facility] [place] [address] Reuben Curran DO [address] [place] [address] Scheduled Orders Name Type Priority Associated Diagnoses Orde r Schedule FERRITIN Lab Routine RLS (restless legs syndrome) Ordered: 01/26/2024 Health Maintenance Due Date Last Done Comments [...] this encounter Medical Devices Implanted Type Area Csw Device Identifier Shelf Expiration Date Model / Serial / Lot Lens 16.5 Mx60 - [id number] - [id number] Implanted:Qty: 1 on 01/18/2017 by George Mar MD at OR [facility] Right: Eye [employer]OM[employer] : SURGICAL 07/30/2017 MX60-16.5 / [id number] / documented as of this encounter Visit Diagnoses Diagnosis RLS (restless legs syndrome)- Primary Restless legs syndrome (RLS) documented in this encounter Advance Directives * Full Code (Latest Code Status on File) Date Activated Date Inactivated Comments 01/18/2017 7:19 AM 01/18/2017 1:16 PM This order r eflects the patients wishes and were consensually agreed upon. Care Teams Rating Officer Relationship Specialty Start Date End Date Omero Blood MD [address] [address] PCP - General Sports Medicine 12/27/23 documented as of this encounter"
--- OUTSIDE RECORDS SUMMARY | 2024-05-15 07:14 | External Medical Summary | Continuity of Care Document ---
Author Name Unknown Organization [address] Address [address] [place] [phone] Care Team Providers Care Pulley Man Name Role Phone Karen Hannah Primary Care P hysician [phone] Encounter [facility] [id number] Date(s): 01/10/24 - 01/10/[address], [facility] [address] [place] [address] [place] [phone] Encounter Diagnosis Body mass index [BMI] 24.0-24.9, adult(Discharge Diagnosis) - 01/10/24 Restless leg syndrome(Discharge Diagnosis) - 01/10/24 Hypertension(Discharge Diagnosis) - 01/10/24 Discharge Disposition: Home or Self Care Attending Physician: Won Wesley DO, Mariana Annette Referring Physician: Won Wesley DO, Mariana Annette Allergies, Adverse Reactions, Alerts No Known Medication Allergies Assessment and Plan Extracted from: Title:Office Visit Note Author:Won Wesley DO, Mariana Annette Date:01/10/24 1.Restless leg syndrome Continue requip 1.25mg qhs, may increase to 1.5mg if needed Discussed side effect profile and pt agreeable to continue Pt also has an appt withneurology in the near future to discuss the burning in his legs. It was not clear to me if he is taking gabapentin still. 2.Hypertension BP today <140/90 which is appropriate for age Advise to stop self-titrating his BP meds, especially hydralazine and to discuss any changes with his cardiology team who manages his HTN and cardiomyopathy. Immunizations Given and Recorded Vaccine Date Status [...] bid, Disp# 180 tab, Refills: 3, Pharmacy: [facility] Start Date: 10/17/23 Status: Ordered Fish Oil 1000 mg oral capsule Start: 06/10/15 1:01:00 PM EST Start Date: 06/10/15 Status: Ordered Flomax 0.4 mg oral capsule Start: 09/25/23 10:28:00 AM EST, 1 cap, PO, Daily, Disp# 90 cap, Refills: 3, Pharmacy: [facility] Start Date: 09/25/23 Status: Ordered gabapentin 100 mg oral capsule Start: 01/02/24 8:09:00 AM EDT, 1 cap, PO, tid Start Date: 01/02/24 Status: Ordered hydrALAZINE 10 mg oral tablet Start: 11/06/23 2:26:00 PM EDT, 1 tab, PO, bid, Disp# 180 tab, Refills: 3, Pharmacy: [facility] Start Date: 11/06/23 Status: Ordered irbesartan 150 mg oral tablet Start: 04/28/23 11:10:00 AM EDT, 1 tab, PO, Daily, Disp# 90 tab, Refills: 3, Pharmacy: [facility] Start Date: 04/28/23 Status: [...] PRN: as needed for chest pain, Pharmacy: [facility] Start Date: 04/28/23 Status: Ordered omeprazole 20 mg oral delayed release capsule Start: 10/17/23 10:50:00 AM EDT, 1 cap, PO, Daily, Disp# 90 cap, Refills: 3, Pharmacy: [facility] Start Date: 10/17/23 Status: Ordered rOPINIRole 1 mg oral tablet Start: 01/08/24 4:40:00 PM EDT, 1 tab, PO, Daily, Disp# 90 tab, 1 to 3 hours before bedtime, to be used with 0.25 mg tab for total dose of 1.25 mg nightly., Pharmacy: [facility] Start Date: 01/08/24 Status: Ordered rosuvastatin 40 mg oral tablet Start: 10/17/23 10:50:00 AM EDT, 1 tab, PO, qhs, Disp# 90 tab, Refills: 3, Pharmacy: [facility] Start Date: 10/17/23 Status: Ordered Mental Status 01/10/24 Barriers to Learning one year None evide nt Mandatory Health Literacy Documentation Yes Health Literacy Communication Barriers N ever Primary Language Australian Problem List Condition Confirmation Course Effective Dates Status H ealth Status Informant Arthritis Confirmed Active Cardiomyopathy Confirmed Active Coronary artery disease Confirmed Active History of panic attacks Confirmed Active History of prostate cancer Confirmed Active Hyperlipidemia Confirmed Active Hypertension Confirmed Active Lumbar disc herniation Confirmed Active Restless leg syndrome Confirmed Active Nevus Confirmed Active Superficial thrombophlebitis Confirmed Active Varicose veins of legs Confirmed Active Diagnosis Diagnosis Type Effective Dates Health Status Clinical Service Informant Body mass index [BMI] 24.0-24.9, adult Discharge Diagnosis 01/10/24 Non-Specified Hypertension Discharge Diagnosis 01/10/24 Non-Specified Restless leg syndrome Discharge Diagnosis 01/10/24 Non-Specified Procedures Procedure Date Related Diagnosis Body Site Status CT of abdomen and pelvis 1 02/24/18 Completed Shoulder 2 04/17/17 Completed Endoscopy 3 08/10/16 Completed Prostate biopsy needle 4 02/22/16 Completed Neck repair 1999 Completed Hernia repair x 4 [id number] 5 1995 Completed Arm repair 1994 Completed [...] Most recent to oldest [Reference Range]: 1 Height 169 cm (01/10/24 3:47 PM) Patient Weight 71.2 kg (01/10/24 3:47 PM) Body Mass Index 24.93 kg/m2 (01/10/24 3:47 PM) Temperature [36.5-37.9 DegC] 36.9 DegC (01/10/24 3:47 PM) Heart Rate 68 bpm (01/10/24 3:47 PM) Respiratory Rate 16 br/min (01/10/24 3:47 PM) Blood Pressure 132/60mmHg (01/10/24 3:47 PM) Cuff Pulse Pressure 72 mmHg (01/10/24 3:47 PM) Social History Social History Type Response Smoking Status Former Smoker, quit > 1 yr Sex Male [facility] Outpt Note * Won Wesley DO, Mariana Annette: PERFORM Event Display: [facility] Outpt Note Authored Date: [id number] Chief Complaint discus medication- restless leg symptom- History of Present Illness Presents to f/u on restless leg syndrome Has been taking 1.25 mg of requipnightly States this has been helping, still notes a low amount of burning in his legs he tried gabapentin at some point but did not find it helpful, he is unsure of what dose he tool denies any dizziness, or side effects from medication He had dopplerstudies that were essentially normal and ruled out ischemic cause for his symptoms He follows with cardiology for HTN, CAD. Supposed to be on hydralazine BID but has been taking PRN? sometimes taking an extra dose at night if he is awake as he read it lasts for about 6 hrs. He is seeing cardiology on 01/22 for a f/u on this. Physical Exam Vitals & Measurements T:36.9C HR:68(Monitored) RR:16 BP:132/60 SpO2:97% HT:169cm WT:71.200kg(Dosing) WT:71.2kg BMI:24.93 PHQ2 Data(Data Documented on:01/10/2024 15:47) Emotional health assessment NEGATIVE General: _Alert and oriented, No acute distress Cardiovascular: _Normal rate, Regular rhythm, No murmur, No gallop. Respiratory: _Lungs are clear to auscultation, Respirations are non-labored, Breath sounds are equal Psych: Mood-affect congruence. Reports no SI/HI. Speech is of normal pace and content Assessment/Plan 1.Restless leg syndrome Continue requip 1.25mg qhs, may increase to 1.5mg if needed Discussed side effect profile and pt agreeable to continue Pt also has an appt withneurology in the near future to discuss the burning in his legs. It was not clear to me if he is taking gabapentin still. 2.Hypertension BP today <140/90 which is appropriate for age Advise to stop self-titrating his BP meds, especially hydralazine and to discuss any changes with his cardiology team who manages his HTN and cardiomyopathy. Attestation Time spent: Pre-visit planning: _10 Notz-ne-kcdj visit: _15 Post-visit (orders/documentation/coordination of care):3 Total visit time: _28 Problem List/Past Medical [...] repair| Service Date: 1999Hernia repair x 4 [id number]| Service Date: 1995Arm repair| Service Date: 1994History [...] tablet), See Instructions diphenhydrAMINE(Compoz Nighttime Sleep Aid) gabapentin(gabapentin 100 mg oral capsule), 100 mg= 1 cap, PO, tid hydrALAZINE(hydrALAZINE 10 mg oral tablet), 10 mg= [...] the next year) OverDue Adult Influenza Vaccine due01/27/23and every 1year Due Adult COVID-19 Vaccination due01/10/24Unknown Frequency Adult Social Determinants of Health Screening due01/10/24Unknown Frequency Medicare Annual Wellness Visit due01/10/24and every 1year Satisfied(in the past 1 year) Satisfied Body Mass Index on01/10/24.Satisfied by MICHELLE Jerome Angela Lipid Screening on02/28/23.Satisfied by [employer]system, [employer] Electronic Signature on File Electronically Reviewed/Signed by: Karen Wesley DO Author Signature Dt/Tm:01/10/2024 04:57 PM Department of Family Medicine [facility] Patient Care team information Care Team Personnel Name: Won Wesley DO, Mariana Annette Position: Physician - Family Med Member Role: Primary Care Provider Address: Address: [address] [place] [address] [address] [place] [address] [place] Name: HALEIGH Moss Lynn Position: Physician Tool And Equipment Rental Clerk Exempt - Vasc Surg Member Role: Lifetime Relationship Address: Address: [address] [place] [address] [address] [place] [address] Care Team Related Persons Name: SHEREE RODRIGES Address: home [address] [place], [place] [id number]"
--- OUTSIDE RECORDS SUMMARY | 2024-05-15 07:14 | External Medical Summary | Summary of Care ---
Author Name Unknown Organization [facility] Address [address] [place] [address] Phone [phone] Care Team Providers Care [employer] Labourer Name Role Phone Omero Blood MD Primary Care Provider [phone] Reason for Visit * Reason Onset Date Comments Follow Up 01/24/2024 Encounter Details Date Type Department Care Team (Late st Contact Info) Description 01/24/2024 11:00 AM EDT Scheduled Telephone [facility], [facility] [address] [facility] [place] [address] [place] Nurse Phone Call Interventional Pain [facility] [address] [facility] [place] [address] Allergies No known active allergiesdocumented as of this encounter (statuses as of 01/24/2024) Medications Medication Sig Dispensed Refills Start Date End Date Status OMEPRAZOLE 20 MG PO CPDR Active GLUCOSAMINE CHONDROITIN COMPLX PO CAPS 1 TABLET DAILY Active MULTIVITAMINS PO TABS 1 TABLET DAILY Active VYTORIN 10-20 MG PO TABS 1/2 tablet daily Active FLOMAX 0.4 MG PO [id number]:Nodu lar prostate with urinary obstruction 1 capsule [...] encounter Miscellaneous Notes * Telephone Encounter - Fabby Aleman LPN [...] 01/26/2024 9:20 AM EDT Office Visit Neurology [facility] [address] [facility] [place] [address] Reuben Curran, DO [address] [facility] [address] Health Maintenance Due Date Last Done Comments [...] this encounter Medical Devices Implanted Type Area Motor Winder Device Identifier Shelf Expiration Date Model / Serial / Lot Lens 16.5 Mx60 - [id number] - [id number] Implanted:Qty: 1 on 01/18/2017 by George Mar MD at OR [facility] Right: Eye [employer] : SURGICAL 07/30/2017 MX60-16.5 / [id number] / documented as of this encounter Advance Directives * Full Code (Latest Code Status on File) Date Activated Date Inactivated Comments 01/18/2017 7:19 AM 01/18/2017 1:16 PM This order r eflects the patients wishes and were consensually agreed upon. Care Teams [employer] Labourer Relationship Specialty Start Date End Date Omero Blood MD [address] [place] [address] PCP - General Sports Medicine 12/27/23 documented as of this encounter
--- OUTSIDE RECORDS SUMMARY | 2024-05-15 07:14 | External Medical Summary | Continuity of Care Document ---
Author Name Unknown Organization [place] [id number] Address [address] [place] [id number] Care Team Providers Care Director Market Intelligence Name Role Phone Karen Hannah Primary Care P emery [phone] [id number] Date(s): 01/24/24 - 01/24/24 [facility] [place] [id number] Medicine [address] [place] [address] Encounter Diagnosis Lumbar radiculopathy(Discharge Diagnosis) - 01/24/24 Discharge Disposition: Home or Self Care Attending Physician: MD Noyola Gregory G Referring Physician: MD Blood Jesse Allergies, Adverse Reactions, Alerts No Known Medication [...] Refills: 3, Pharmacy: [facility] Start Date: 10/17/23 Status: Ordered Fish Oil 1000 mg oral capsule Start: 06/10/15 1:01:00 PM EST Start Date: 06/10/15 Status: Ordered Flomax 0.4 mg oral capsule Start: 09/25/23 10:28:00 AM EST, 1 cap, PO, Daily, Disp# 90 cap, Refills: 3, Pharmacy: [facility] Start Date: 09/25/23 Status: Ordered irbesartan 150 mg oral tablet Start: 04/28/23 11:10:00 AM EDT, 1 tab, PO, Daily, Disp# 90 tab, Refills: 3, Pharmacy: [facility] Start Date: 04/28/23 Status: Ordered multivitamin [...] chest pain, Pharmacy: [facility] Start Date: 04/28/23 Status: Ordered omeprazole 20 mg oral delayed release capsule Start: 10/17/23 10:50:00 AM EDT, 1 cap, PO, Daily, Disp# 90 cap, Refills: 3, Pharmacy: [facility] Start Date: 10/17/23 Status: Ordered rOPINIRole 1 mg oral tablet Start: 01/08/24 4:40:00 PM EDT, 1 tab, PO, Daily, Disp# 90 tab, 1 to 3 hours before bedtime, to be used with 0.25 mg tab for total dose of 1.25 mg nightly., Pharmacy: [facility] Start Date: 01/08/24 Status: Ordered rosuvastatin 40 mg oral tablet Start: 10/17/23 10:50:00 AM EDT, 1 tab, PO, qhs, Disp# 90 tab, Refills: 3, Pharmacy: [facility] Start Date: 10/17/23 Status: Ordered Mental Status 01/24/24 Barriers to Learning one year None evide nt Mandatory Health Literacy Documentation Yes Health Literacy Communication Barriers N ever Primary Language Yi Problem List Condition Confirmation Course Effective Dates [...] Effective Dates Health Status Clinical Service Informant Lumbar radiculopathy Discharge Diagnosis 01/24/24 Procedures Procedure Date Related Diagnosis Body Site Status CT of abdomen and pelvis 1 02/24/18 Completed Shoulder 2 04/17/17 Completed Endoscopy 3 08/10/16 Completed Prostate biopsy needle 4 02/22/16 Completed Neck repair 1999 Completed Hernia repair x 4 [id number] 5 1995 Completed Arm repair 1994 Completed [...] Smoker, quit > 1 yr Sex Male Patient Care team information Care Team Personnel Name: Won Wesley DO, Mariana Annette Position: Physician - Family Med Member Role: Primary Care Provider Address: Address: [address] [place] [address] [address] [place] [address] [place] Name: HALEIGH Moss Lynn Position: Physician Nutritional Health Coach Exempt - Vasc Surg Member Role: Lifetime Relationship Address: Address: [address] [place] [address] [address] [place] [address] Care Team Related Persons Name: SHEREE RODRIGES Address: home [address] [place], [place] [id number]
--- OUTSIDE RECORDS SUMMARY | 2024-05-15 07:14 | External Medical Summary ---
Author Name Unknown Address Unknown Organization K01:LABORATORY [facility] [place] - [address] [place] [address] Laboratory Report Ordering Provider Test Date Status JEANETTE ALCALA 01/26/2024 09:50:16 Final Observation Date Value Abnormality Reference (Units ) Status Ferritin 01/26/2024 09:50:16 247 30-400 (ng /mL) Final Performing Location [facility] [address] [place] [address]
--- OUTSIDE RECORDS SUMMARY | 2024-05-15 07:15 | External Medical Summary ---
Author Name Unknown Address Unknown Organization : Laboratory Report Ordering Provider Test Date Status DARRIAN HOOKS 12/30/2023 14:32:00 Final Observation Date Value Abnormality Reference (Units ) Status Thiamine [Moles/volume] in Blood 12/30/2023 14:32:00 128 78-185 (nmol/L) Final Vitamin supplementation with in 24 hours prior to
blood draw may affect the accuracy of the results.
This test was developed and its analytical performance
characteristics have been determined by [employer] [place], [place]. It has
not been cleared or approved by the U.S. Food and Drug
Administration. This assay has been validated pursuant
to the CLIA regulations and is used for clinical
purposes.

Test Performed at:
[facility]
[address] [facility] [place] [address]
Emerson Whipple M.D., Ph.D.,Director of Laboratories Performing Location
--- OUTSIDE RECORDS SUMMARY | 2024-05-15 07:15 | External Medical Summary ---
Author Name Unknown Address Unknown Organization K01:[facility]ATORY [facility] - [address] [place] [address] Laboratory Report Ordering Provider Test Date Status DARRIAN HOOKS 12/30/2023 14:32:00 Final Observation Date Value Abnormality Reference (Units ) Status Troponin T 12/30/2023 14:32:00 29 Above high normal < =22 (ng/L) Final Performing Location [facility] - [address] [place] [address]
--- OUTSIDE RECORDS SUMMARY | 2024-05-15 07:15 | External Medical Summary ---
Author Name Unknown Address Unknown Organization : Laboratory Report Ordering Provider Test Date Status DARRIAN HOOKS 12/30/2023 14:32:00 Final Observation Date Value Abnormality Reference (Units ) Status Pyridoxal phosphate [Mass/volume] in Serum or Plasma 12/30/2023 14:32:00 30.0 Above high normal 2.1-21.7 (ng/mL) Final Vitamin supplementation with in 24 hours prior to
blood draw may affect the accuracy of the results.
This test was developed and its analytical performance
characteristics have been determined by [employer]
[facility] [place], [place]. It has
not been cleared or approved by the U.S. Food and Drug
Administration. This assay has been validated pursuant
to the CLIA regulations and is used for clinical
purposes.

Test Performed at:
[facility]
[address] [facility]
[place], [place]
Emerson Whipple M.D., Ph.D.,Director of Laboratories Performing Location
--- OUTSIDE RECORDS SUMMARY | 2024-05-15 07:15 | External Medical Summary ---
Author Name Unknown Address Unknown Organization K01:[facility] - [address] [place] [address] Laboratory Report Ordering Provider Test Date Status DARRIAN HOOKS 12/30/2023 13:16:00 Final Observation Date Value Abnormality Reference (Units ) Status Phosphate 12/30/2023 13:16:00 3.1 2.5-4.8 (m g/dL) Final Performing Location [facility] - [address] [place] [address]
--- OUTSIDE RECORDS SUMMARY | 2024-05-15 07:15 | External Medical Summary ---
Author Name Unknown Address Unknown Organization K01:[facility] - [address] [place] [address] Laboratory Report Ordering Provider Test Date Status DARRIAN HOOKS 12/30/2023 13:16:00 Final Observation Date Value Abnormality Reference (Units ) Status Magnesium 12/30/2023 13:16:00 2.2 1.5-2.6 (m g/dL) Final Performing Location [facility] - [address] [place] [id number]
--- OUTSIDE RECORDS SUMMARY | 2024-05-15 07:15 | External Medical Summary | Summary of Care ---
Author Name Unknown Organization [facility] Address [address] [place] [address] Phone [phone] Care Team Providers Care Field Recruiter Name Role Phone Omero Blood MD Primary Care Provider [phone] Reason for Visit * Auth/Cert Specialty Diagnoses / Procedures Referred By Mariya quarles Referred To Contact Diagnoses Lumbar radiculopathy Lumbar radiculopathy [M54.16] Procedures INJECT DX/THER SUBSTANCE INTERLAMINAR LUMBAR/SACRAL W IMAGE GUIDE INJECTION SPINE LUMBAR OR SACRAL Aubrey Bernard DO [address] [place] [address] Or [facility] [address] [place] [address] Referral ID Status Reason Start Date Expiration Date Visits Re quested Visits Authorized [id number] Encounter Details Date Type Department Care Team (Latest Contact Info) Description 12/27/2023 9:58 AM EDT - 12/27/2023 11:23 AM EDT Hospital Encounter [facility], Operating Room [facility] [address] [place] [address] Aubrey Bernard DO [address] [place] [address] Discharge Disposition: Home - Self Care Allergies No known active allergiesdocumented as of this encounter (statuses as of 12/27/2023) Medications Medication Sig Dispensed Refills Start Date End Date Status OMEPRAZOLE 20 MG PO CPDR Active GLUCOSAMINE CHONDROITIN COMPLX PO CAPS 1 TABLET DAILY Active MULTIVITAMINS PO TABS 1 TABLET DAILY Active VYTORIN 10-20 MG PO TABS 1/2 tablet daily Active FLOMAX 0.4 MG PO [id number]:Nodu lar prostate with urinary obstruction 1 capsule [...] as of this encounter (statuses as of 12/27/2023) Active Problems Problem Noted Date Diagnosed Date ADVANCE DIRECTIVE INFORMATION 09/24/2009 Overview: Yes, Patient instructed to provide copy of advance directive for provider to review and to be scanned into Electronic Medical Record Bilateral inguinal hernia 12/25/2008 Other specified gastritis without mention of hem orrhage 11/13/2006 documented as of this encounter (statuses as of 12/27/2023) Immunizations Name Administration Dates Next Due COVID-19 [...] Sign Reading Time Taken Comments Blood Pressure 166/93 12/27/2023 11:16 AM EDT Pulse 57 12/27/2023 11:16 AM EDT Temperature 36.3 C (97.3 F) 12/27/2023 11:16 AM E DT Respiratory Rate 17 12/27/2023 11:16 AM EDT Oxygen Saturation 98% 12/27/2023 11:16 AM EDT Inhaled Oxygen Concentration - - Weight 68.9 kg (152 lb) 12/27/2023 10:37 AM EDT Height 170.2 cm (5' 7") 12/27/2023 10:37 AM EDT Body Mass Index 23.81 12/27/2023 10:37 AM EDT documented in this encounter Discharge Instructions * Discharge Instr - AVS* Aubrey Bernard DO - 12/27/2023 11:14 AM EDT [facility] [address] [facility] [place] [address] Discharge Date: 12/27/2023 You may call [facility] at [phone] during business hours. For after-hours emergencies call 911. Your attending physician at the time of your discharge was: Aubrey Bernard DO [address] [place] [address] The information below provides you with the instructions and the list of medications you need to betaking following discharge from the hospital. If you have any questions, please ask before leaving.Please carry this letter with you when you see your doctor in the clinic. Diet: Resume your normal diet If you are diabetic, follow your blood sugars closely for next 2-3 days as they are likely to be elevated. If you are having difficulty controlling your blood sugars call your family doctor or the physician that treats your diabetes. Activity: Do not engage in strenuous activity today Resume your normal activities tomorrow Do not soak in water for 24 hours. No swimming, hot tub or bath but showering is allowed. Do not use heat on the injection site for 24 hours. If uncomfortable ice may be helpful. Some injections may make your arms or legs weak for a few hours. Be extremely careful when walking or changing positions that you do not fall. Have someone assist you for the next 6 hours. If weakness or numbness becomes progressive CALL IMMEDIATELY or GO TO THE NEAREST EMERGENCY ROOM Do not restart physical therapy or chiropractic manipulation until 48 hours after your injection Call : If weakness or numbness suddenly becomes worse or become progressive If the injection site becomes red, swollen, warm to the touch, begins to bleed or drain fluid, or is excessively painful. If you have any questions Medications: Resume all the medications you were taking prior to your injection. Resume your anticoagulants tomorrow unless otherwise instructed by your family physician, lubricator granulator or the anticoagulation clinic. Additional Instructions: None Driving: You may resume driving in 12-24 hours if no weakness is noted . Date you may return to work or school: N/A Follow Up: Please make a follow-up telephone appointment with our nursing staff in 4-6 weeks. documented in this encounter Progress Notes * Aubrey Bernrad DO - 12/27/2023 11:14 AM EDT [facility] [address] [place] [address] OUTPATIENT SURGERY DISCHARGE SUMMARY NOTE Name: Laci Banerjee Location: OR [facility]/OR Date: 12/27/2023 Time: 11:14 AM Surgery Date: 12/27/2023 Procedure: INJECTION SPINE LUMBAR OR SACRAL No laterality found for procedure #1 Surgeon: Aubrey Bernard DO Discharge Diagnosis: lumbar radicular pain After examination of this patient, I have determined he is ready for discharge to home when the patient meets criteria. Discharge instructions were given to the patient. Aubrey Bernard DO OR [facility], Operating Room [facility] [address] [facility] [place] [address] documented in this encounter H&P Notes * Aubrey Bernard DO - 12/27/2023 10:49 AM EDT Interventional Pain H&P Subjective: History of Present Illness: Laci Banerjee is a 83 year old year-old male with a past medical history significant for lumbar radicular pain who is presenting for L4/5 JAVIER to improve his pain and function. his pain is essentiallyunchanged since our last office visit with him. ASA 3 AW nml Review of Systems: A focused 12-pt ROS were of reviewed with the patient including difficulty with sleep, snoring, aspiration history, dysphagia, stomach pain, nausea and vomiting, severe headaches, confusion, open skin lesions or wounds, chest pain, shortness of breath, excessive thirst, somnolence, dysuria, incomplete bladder emptying, easy bruising, recent clotting problems or bleeding, depression or rushed thoughts unless noted previously. Review of patient's allergies indicates: No Known Allergies Medications, Past Medical History, Past Surgical History reviewed and documented in Epic. See detailed report if needed. Pertinent Labs/Test Results: No results found for: "INR" No results found for: "CREATININE" No results found for: "HGBA1C", "[id number]" No results found for: "AMPHETAMINE", "BARBITURATES", "BENZODIAZEPINES", "BUPRENORPHINE", "METHADONE", "OPIATES", "OXYCODONE", "PHENCYCLIDINE", "CANNABINOIDS", "TOX SCREEN", "URINE", "TOX SCREEN-SERUM", "TOX SCREEN, URINE" Imaging: I personally reviewed the imaging and my findings were . FLUORO INTERVENTIONAL PAIN PROCEDURE NONBILLABLE This procedure will not be read by a Radiologist. Please see operative note. Objective Physical Exam: Vital Signs: BP 165/90 | Pulse 60 | Temp 36.3 C (97.3 F) (Tympanic) | Resp 18 | Ht 1.702 m (5' 7") | Wt 68.9 kg (152 lb) | SpO2 99% | BMI 23.81 kg/m | BSA 1.8 m Body mass index is 23.81 kg/m. General: No apparent distress. Eyes: pupils equal and round, sclera white, pupils midsize. ENT: mucous membranes moist Resp: Non-labored breathing CV: Extremities warm and well-perfused. Psych: Oriented; affect warm, insight good. Skin: No rashes or lesions appreciated on exposed skin Neuromuscular Exam: Facet loading neg, SLR pos, TTT over lumbar spine Assessment: Laci is a 83 year old year-old male with: Lumbar radicular pain Plan: The patient is undergoing L4/5 JAVIER today to alleviate his pain and improve his function. The risks,benefits and alternatives to the procedure were reviewed at length and the patient was provided theopportunity to ask questions which were answered to their voiced understanding. Following this comprehensive discussion, the patient opted to proceed. The patient was consented to the procedure follow ing this comprehensive conversation. Aubrey Bernard DO OR [facility], Operating Room [address] [address] documented in this encounter Nursing Notes * Suellen Swain RN - 12/27/2023 11:19 AM EDT Visited by Dr Bernard. Verbalized understanding of discharge directions. Ready for discharge to home. * Chantel Ferrell RN - 12/27/2023 11:10 AM EDT Patient tolerating procedure without complications. documented in this encounter OR Notes * OR Surgeon - Aubrey Bernard DO - 12/27/2023 11:13 AM EDT INTERLAMINAR LUMBAR EPIDURAL STEROID INJECTION DATE: 12/27/2023 PHYSICIAN: Aubrey Bernard DO PREOPERATIVE DIAGNOSIS: Lumbar spondylosis with lumbar radiculopathy. POSTOPERATIVE DIAGNOSIS: Lumbar spondylosis with lumbar radiculopathy. PROCEDURE PERFORMED: L4/5 interlaminar epidural steroid injection on the left side. Fluoroscopy for precise needle placement. ANESTHESIA: Local infiltration with 1% lidocaine. MONITORS: Automatic blood pressure cuff, pulse oximetry. There was no marketing communications assistant, EBL or drains placed during this procedure. INDICATIONS: I had the pleasure of seeing Laci Banerjee ([id number]) in the pain management clinic at the the [facility] today. Laci Banerjee is a 83 year old year-old male has a history of lumbar radiculopathy. he is here today for an interlaminar lumbar epidural steroid injection today. MEDICATIONS: No current facility-administered medications for this encounter. ALLERGIES: Review of patient's allergies indicates: No Known Allergies REVIEW OF SYSTEMS: Negative for fever, chills, chest pain, SOB, bleeding abnormalities, nausea, vomiting, diarrhea, worsening edema, or new rashes. FOCUSED PHYSICAL EXAMINATION: The patient is awake, alert and oriented, and is in no acute distress. Vital signs are stable. The patient is afebrile. The rest of the PE is essentially unchanged from the patient's recent visit to our office. I explained the procedure to the patient including the risks, benefits and alternatives to the procedure. The risks discussed with the patient included but were not limited to: bleeding, infection, and damage to surrounding nerves, tissues, and organs, paralysis, increased pain, pain at the site ofinjection, allergic reaction, blood pressure instability, seizures, heart block, headaches, increase in blood sugar, worsening of glaucoma, blindness, manic episodes, mood instability, . Alternatives to the procedure were also explained and include: do nothing, surgery, medications, and physical therapy. The patient verbalized understanding and was willing to proceed. PROCEDURE IN DETAIL: An informed consent was obtained. The patient was taken to the procedure room,was positively identified by the staff and attending physician. The patient was positioned prone onthe procedure bed. Vital signs were monitored as above and remained stable throughout the procedure. The skin was prepped and draped in a standard sterile fashion. A surgical pause time-out was performed and agreed upon by the members of the team. Fluoroscopic view of the lumbar spine was obtained and the area of interest was identified. The skin and subcutaneous tissues were anesthetized using 1% lidocaine and 25-gauge 1- 1/2 inch needle. After that, a 20-gauge, 3.5-inch epidural needle was advanced towards the L4/5 interlaminar window in the left paramedian position. AP, contralateral oblique and lateral views were used to assess appropriate needle position. Loss of resistance to air technique was utilized and was obtained at 5 cm from the skin. The needle's position was additionally verified by injecting radiopaque dye, which showed spread of the dye in the epidural space in AP and lateral views. After negative aspiration for CSF and blood, 80 mg of Kenalog diluted in 2 mL of 1% lidocaine was injected into the epidural space. The needle was withdrawn. The patient tolerated the procedure well. COMPLICATIONS: None. DISPOSITION: 1. Return to clinic in 1-2 months for follow-up evaluation, sooner as needed. 2. Resume activity as tolerated. 3. Patient can drive after 12-24 hours if no weakness noted. Aubrey Bernard DO OR [facility], Operating Room [facility] [address] [place] [address] documented in this encounter Plan of Treatment Upcoming Encounters Date Type Department Care Team (Late st Contact Info) Description 01/24/2024 11:00 AM EDT Scheduled [facility] [address] [place] [address] Nurse Elpidio Phone Call Interventional Pain [facility] [address] [place] [address] Scheduled Procedures Name Priority Associated Diagnoses Date/Ti me INJECTION SPINE LUMBAR OR SACRAL Lumbar radiculopathy 12/27/2023 11:01 AM EDT Health Maintenance Due Date Last Done Comments Depression Screening 1952 DTaP,Tdap,and Td Vaccines (3 - Tdap) 08/24/2015 08/24/2005, 04/30/1995 COVID-19 Vaccine (3 2022-2 4 season) 2023 10/05/2020, 09/01/2020 Influenza [...] this encounter Medical Devices Implanted Type Area Sales Commissions Analyst Device Identifier Shelf Expiration Date Model / Serial / Lot Lens 16.5 Mx60 - [id number] - [id number] Implanted:Qty: 1 on 01/18/2017 by George Mar MD at OR [facility] Right: Eye [employer] : SURGICAL 07/30/2017 [id number] / [id number] / documented as of this encounter Procedures Procedure Name Priority Date/Time Associated Diagnosis Comments FLUORO INTERVENTIONAL PAIN PROCEDURE NONBILLABLE Routine 12/27/2023 11:20 AM EDT documented in this encounter Results * FLUORO INTERVENTIONAL PAIN PROCEDURE NONBILLABLE (12/27/2023 11:20 AM EDT) Narrative Scheduling, Silent - 12/27/2023 11:20 AM EDT This procedure will not be read by a Radiologist. Please see operative note. Aubrey Bernard DO RAD FLUOROSCOPY documented in this encounter Administered Medications Inactive Administered Medications - up to 3 most recent administrations Medication Order MAR Action Action Date Dose Rate Site Iohexol (Omnipaque 180) inj 1 mL 1 mL, Injection, ONCE, On Mon12/27/23 at 1115, For 1 dose Given 12/27/2023 11:09 AM EDT 1.5 mL lidocaine 1 % inj 20 mg 20 mg (2 mL), Subcutaneous, ONCE, On Mon12/27/23 at 1115, For 1 dose Given 12/27/2023 11:07 AM EDT 5 mL Other-Specify Triamcinolone Acetonide (Kenalog) 40 MG/ML inj 40 mg 40 mg, Injection, ONCE, On Mon12/27/23 at 1115, For 1 dose Given 12/27/2023 11:10 AM EDT 80 mg documented in this encounter Active and Recently Administered Medications Times are shown in EDT. Scheduled Medication Order 12/25/2023 12/26/2023 12/27/2023 Iohexol (Omnipaque 180) inj 1 mL (COMPLETED) 1 mL, Injection, ONCE, On Mon12/27/23 at 1115, For 1 dose 1109 (Given - Provid er: Chantel Ferrell RN) lidocaine 1 % inj 20 mg (COMPLETED) 20 mg (2 mL), Subcutaneous, ONCE, On Mon12/27/23 at 1115, For 1 dose 1107 (Given - Provid er: Chantel Ferrell RN) Triamcinolone Acetonide (Kenalog) 40 MG/ML inj 40 mg (COMPLETED) 40 mg, Injection, ONCE, On Mon12/27/23 at 1115, For 1 dose 1110 (Given - Provid er: Chantel Ferrell RN) documented in this encounter Advance Directives * Full Code (Latest Code Status on File) Date Activated Date Inactivated Comments 01/18/2017 7:19 AM 01/18/2017 1:16 PM This order r eflects the patients wishes and were consensually agreed upon. Care Teams Field Recruiter Relationship Specialty Start Date End Date Omero Blood MD [address] [place] [address] PCP - General Sports Medicine 12/27/23 documented as of this encounter
--- OUTSIDE RECORDS SUMMARY | 2024-05-15 07:15 | External Medical Summary | Continuity of Care Document ---
Author Name Unknown Organization [address] Address [address] [place] [address] [id number] Care Team Providers Care Paper Baler Name Role Phone Omero Blood Primary Care Physician [phone] [id number] Date(s): 01/02/24 - 01/02/[address] [place] [id number] [facility], [facility] [address] [place] [address] [phone] Encounter Diagnosis Body mass index [BMI] 25.0-25.9, adult(Discharge Diagnosis) - 01/02/24 Coronary artery disease(Discharge Diagnosis) - 01/02/24 Restless legs syndrome (RLS)(Discharge Diagnosis) - 01/02/24 Discharge Disposition: Home or Self Care Attending Physician: MD Blood Jesse Referring Physician: MD Blood Jesse Allergies, Adverse Reactions, Alerts No Known Medication Allergies Assessment and Plan Extracted from: Title:Office Visit Note Author:MD Blood Jesse Date:01/02/24 1.Coronary artery disease With this likely demand ischemia did reiterate the importance of him following up with cardiology. Did reiterate that his blood pressure needs to be better controlledhowever again he did not wish to address this today. We did reiterate that taking all of his blood pressure and cardiac medicines as prescribed are recommended at this time. He is aware ofred flags and return precautions for the EDwith regard to his cardiac symptoms. 2.Restless legs syndrome (RLS) At this pointexam and history consistent with at least some component of restless leg syndrome. Did discuss medication options and that the gabapentin is potentially an option. He reiterated that he does not want to continue to take thisand would like to try something else. Of the other optionsmutual decision was made to try low-dose ropinirole at 0.25 mg nightly 1 to 3 hours before symptom onset normally. Did discuss that aftera few days ifhe were not fully controlled he can go up to 0.5 mg total and would not go above this. Did explicitly discussed risks and side effectsas well as benefit. He is to follow-up if any issues were to arise.After the visit was able to obtain records which showcalcinosis which limited examof Dopplers however on waveform analysisthe read states thatat worstthere is likelymild blood flow restriction on 1 side. This does not fit with critical limb ischemia and likely does not explain his symptomsas they are described. Patient is to follow-upto establish care with new provider due gaviota change in role with the clinic. Addendum by MD Jeremi, Marge matthews on January 03, 2024 13:04:16 EDT Time: 50 mins 5- pre-visit chart review 35- visit, inclusive of history, exam, and discussion of assessment/plan 10- post-visit documentation/orders/coordination of care Immunizations Given and Recorded Vaccine Date Status [...] bid, Disp# 180 tab, Refills: 3, Pharmacy: [facility] Start Date: 10/17/23 Status: Ordered Fish Oil 1000 mg oral capsule Start: 06/10/15 1:01:00 PM EST Start Date: 06/10/15 Status: Ordered Flomax 0.4 mg oral capsule Start: 09/25/23 10:28:00 AM EST, 1 cap, PO, Daily, Disp# 90 cap, Refills: 3, Pharmacy: [facility] Start Date: 09/25/23 Status: Ordered gabapentin 100 mg oral capsule Start: 01/02/24 8:09:00 AM EDT, 1 cap, PO, tid Start Date: 01/02/24 Status: Ordered hydrALAZINE 10 mg oral tablet Start: 11/06/23 2:26:00 PM EDT, 1 tab, PO, bid, Disp# 180 tab, Refills: 3, Pharmacy: [facility] Start Date: 11/06/23 Status: Ordered irbesartan 150 mg oral tablet Start: 04/28/23 11:10:00 AM EDT, 1 tab, PO, Daily, Disp# 90 tab, Refills: 3, Pharmacy: [facility] Start Date: 04/28/23 Status: Ordered multivitamin Start: 10/18/21 9:57:00 AM EDT, 1 tab, PO, Daily Start Date: 10/18/21 Status: Ordered nitroglycerin 0.4 mg sublingual tablet Start: 04/28/23 11:10:00 AM EDT, 1 tab, SL, q5min, Disp# 90 tab, Refills: 3, If chest pain not relieved in 5 minutes after first dose, seek immediate medical attention, PRN: as needed for chest pain, Pharmacy: [facility] Start Date: 04/28/23 Status: Ordered omeprazole 20 mg oral delayed release capsule Start: 10/17/23 10:50:00 AM EDT, 1 cap, PO, Daily, Disp# 90 cap, Refills: 3, Pharmacy: [facility] Start Date: 10/17/23 Status: Ordered rOPINIRole 0.25 mg oral tablet Start: 01/02/24 8:32:00 AM EDT, See Instructions, Disp# 60 tab, 1 tab PO Daily 1 to 3 hours before bedtime if control not adequtae can increase to 0.5 mg after 3 days, Pharmacy: [facility] Start Date: 01/02/24 Status: Ordered rosuvastatin 40 mg oral tablet Start: 10/17/23 10:50:00 AM EDT, 1 tab, PO, qhs, Disp# 90 tab, Refills: 3, Pharmacy: [facility] Start Date: 10/17/23 Status: Ordered Mental Status 01/02/24 Barriers to Learning one year None evide nt Mandatory Health Literacy Documentation Yes Health Literacy Communication Barriers N ever Primary Language Maced[place] Problem List Condition Confirmation Course Effective Dates Status H ealth Status Informant Arthritis Confirmed Active Cardiomyopathy Confirmed Active Coronary artery disease Confirmed Active History of panic attacks Confirmed Active History of prostate cancer Confirmed Active Hyperlipidemia Confirmed Active Hypertension Confirmed Active Lumbar disc herniation Confirmed Active Nevus Confirmed Active Superficial thrombophlebitis Confirmed Active Varicose veins of legs Confirmed Active Diagnosis Diagnosis Type Effective Dates Health Status Cl inical Service Informant Body mass index [BMI] 25.0-25.9, adult Discharge Diagnosis 01/02/24 Non-Specified Restless legs syndrome (RLS) Discharge Diagnosis 01/02/24 Non-Specified Coronary artery disease Discharge Diagnosis 01/02/24 Non-Specified Procedures Procedure Date Related Diagnosis Body Site Status CT of abdomen and pelvis 1 02/24/18 Completed Shoulder 2 04/17/17 Completed Endoscopy 3 08/10/16 Completed Prostate biopsy needle 4 02/22/16 Completed Neck repair 1999 Completed Hernia repair x [id number] Completed Arm repair 1994 Completed History of [...] recent to oldest [Reference Range]: 1 Height 169.0 cm (01/02/24 8:11 AM) Patient Weight 72.1 kg (01/02/24 8:11 AM) Body Mass Index 25.24 kg/m2 (01/02/24 8:11 AM) Temperature [36.5-37.9 DegC] 37.1 DegC (01/02/24 8:11 AM) Blood Pressure 150/86mmHg (01/02/24 8:11 AM) Cuff Pulse Pressure 64 mmHg (01/02/24 8:11 AM) Social History Social History Type Response Smoking Status Former Smoker, quit > 1 yr Sex Male FCM Outpt Note * MD Jeremi, Omero: PERFORM Event Display: FCM Outpt Note Authored Date: Chief Complaint F/U [facility]. B/L leg problem. History of Present Illness Today for ED follow-up. He states that his leg pain was so severe 1 night that he went into the EDand was havingconcerning thoughts related to this. ReviewingED discharge summaryhisblood pressure was significantly elevatedand he hadelevated troponin concerning for type IIdemand ischemia. He would not address this with them and left AMA despite the recommendation for admission and monitoring. He did state he had some discomfort around the left side of his chest around this timeand states currently he does not have this. Todayhe is perseverating on his leg pain andexplicitly states he will not address his cardiac issues today. He does have follow-up with Dr. Arsenio baires roughly 1 week. I did reiterate during this visit that he needs to keep that appointment and follow-up as he likely will needadditional testing/management. His blood pressure is elevated in the office again todayand he would notaddress thisduring our discussion. Going back to ourdiscussion of his leg pain. He reiterated multiple times that he hascritical limb ischemiawhich on a physical exam basis he was seen recently by Lashawn Larsno and found to havenormal pulses normal coloration and by patient's own admission multiple times during the visitthat he can exercise throughout the daywalk and do normal activity without any pain or claudication type symptoms. I did ask him to go back to the beginning as he has never discussed this explicitly with pawand never discussed any nighttime symptoms. He states that his pain comes onat least an hour into sleeping and that he is usually awakened by thisand has some feelings of inability to keep his leg stillas well assome tinglingbut then usually becomes overt pain where he has to get up and walk around. He states this is been relatively severe recently. He states he has seen multiple pain management doctorsrelated to whathe states previously they all thought was related to his back. He has been treated with multiple injections and multiple medications for back catherine nand radiculopathywhich imaging does show he has some pathology present. Today he states thathe has nighttime only symptomsas stated above. His family wasreportedlyso upset by his symptoms that they were unwilling to wait for the Dopplers that were ordered from his recent follow-upand had them done at [facility]. He gave the number today to getthe results of this so that we can review. Again he reiterates that he canwalk and do normal activity throughout the day without issuewith his legs and that the symptoms only come on over time at nightand are relieved by movement. We did discuss that this does fit clinically and history long with restless leg syndrome. We diddiscuss that due to his cardiac history he likely hassome component ofperipheral vascular disease buton a clinical basis does notsuggest critical limb ischemia. He states thatthey did start gabapentin which she does not want to take and has stated so explicitly multiple times. He states that previously when taking it he had a rectal fissurerelated to constipation and will not continue to take it long-term. There was some question about this angeline family called and asking about prior ofteninsurance coverage for this and he states he is currently taking it however does notwant to. He does state that his daughter gave him a 0.5 mg pill of Requipwhich completely took away his symptoms and resolve them overnight. We did discuss that thissuggest at leastsome component of restless leg syndrome. Physical Exam Vitals & Measurements T:37.1C BP:150/86 SpO2:97% HT:169.0cm WT:72.1kg WT:72.100kg(Dosing) BMI:25.24 PHQ2 Data(Data Documented on:01/02/2024 08:10) Emotional health assessment NEGATIVE GENERAL APPEARANCE: The patient is alert, oriented and in no acute distress. VITALS: As above. HEENT: Head is normocephalic/atraumatic. PERRL, EOM-I. Oropharynx clear without lesions. NECK: Supple without lymphadenopathy. Thyroid wnl. CARDIOVASCULAR: Regular rate and rhythm, no m/r/g. +2 radial/dp pulses. No bruits heard on exam. No JVD positive on exam. LUNGS: Clear to auscultation bilaterally. No wheezes/rhales/rhonchi. ABDOMEN: Soft, nontender, nondistended with normal bowel sounds. No rebound/guarding. EXTREMITIES: No cyanosis, clubbing or edema.Normal DP and posterior tibial pulses bilaterallyin lower extremities. Lower extremities warm with normal skin color. NEUROLOGICAL: Grossly non-focal exam. SKIN: Warm and dry without any rash. Assessment/Plan 1.Coronary artery disease With this likely demand ischemia did reiterate the importance of him following up with cardiology. Did reiterate that his blood pressure needs to be better controlledhowever again he did not wish to address this today. We did reiterate that taking all of his blood pressure and cardiac medicines as prescribed are recommended at this time. He is aware ofred flags and return precautions for the EDwith regard to his cardiac symptoms. 2.Restless legs syndrome (RLS) At this pointexam and history consistent with at least some component of restless leg syndrome.Did discuss medication options and that the gabapentin is potentially an option. He reiterated that he does not want to continue to take thisand would like to try something else. Of the otheroptionsmutual decision was made to try low-dose ropinirole at 0.25 mg nightly 1 to 3 hours beforesymptom onset normally. Did discuss that aftera few days ifhe were not fully controlled he can go up to 0.5 mg total and would not go above this. Did explicitly discussed risks and side effectsas well as benefit. He is to follow-up if any issues were to arise.After the visit was able to obtain records which showcalcinosis which limited examof Dopplers however on waveform analysisthe read states thatat worstthere is likelymild blood flow restriction on 1 side. This does not fit with critical limb ischemia and likely does not explain his symptomsas they are described. Patient is to follow-upto establish care with new provider due gaviota change in role with the clinic. Problem List/Past Medical History Ongoing Arthritis Cardiomyopathy Coronary artery disease History of panic attacks History of prostate cancer Hyperlipidemia Hypertension Lumbar disc herniation Nevus Superficial thrombophlebitis Varicose veins of legs Procedure/Surgical History CT of abdomen and pelvis| Service Date: 02/24/2018Shoulder| Service Date: 04/17/2017Endoscopy| Service Date: 08/10/2016Prostate biopsy needle| Service Date: 02/22/2016Neck repair| Service Date: 1999Hernia repair x 4 [id number]| Service Date: 1995Arm repair| Service Date: 1994History [...] 1 cap, PO, Daily, 3 refills rOPINIRole(rOPINIRole 0.25 mg oral tablet), See Instructions rosuvastatin(rosuvastatin 40 mg oral tablet), 40 mg= [...] due01/27/23and every 1year Due Adult COVID-19 Vaccination due01/03/24Unknown Frequency Adult Social Determinants of Health Screening due01/03/24Unknown Frequency Medicare Annual Wellness Visit due01/03/24and every 1year Satisfied(in the past 1 year) Satisfied Body Mass Index on01/02/24.Satisfied by SAYDA Merrill Lori Lipid Screening on02/28/23.Satisfied by [employer]system, [employer] Electronic Signature on File Electronically Reviewed/Signed by: Omero Blood M.D. Author Signature Dt/Tm:01/03/2024 12:16 PM Division of Sports Medicine KATHERINE * MD Blood Jesse: PERFORM Event Display: FCM Outpt Note Authored Date: [id number] Time: 50 mins 5- pre-visit chart review 35- visit, inclusive of history, exam, and discussion of assessment/plan 10- post-visit documentation/orders/coordination of care Electronic Signature on File CC: Juan R Dent, [address] [place] [id number] Electronically Reviewed/Signed by: Omero Blood M.D. Author Signature Dt/Tm:01/03/2024 01:04 PM Division of Sports Medicine Patient Care team information Care Team Personnel Name: MD Blood Jesse Position: Physician Member Role: Primary Care Provider Address: Address: [facility] [address] [place] Name: HALEIGH Moss Lynn Position: Physician Flat Polisher Exempt - Vasc Surg Member Role: Lifetime Relationship Address: Address: [address] [place] [phone] [place] Care Team Related Persons Name: ANTELMO SHEREE Address: home [address] [place] [phone]"
--- OUTSIDE RECORDS SUMMARY | 2024-05-15 07:15 | External Medical Summary | Summary of Care ---
Author Name Unknown Organization [facility] Address [address] [place] [address] Phone [phone] Care Team Providers Care Fruit Grader Operator Name Role Phone Omero Blood MD Primary Care Provider [phone] Reason for Referral * Evaluate & Treat - Unlimited Visits (Within 3 days (urgent)) - Pending Review Specialty Diagnoses / Procedures Referred By Contac t Referred To Contact Psychology Diagnoses Pain of left lower extremity Xavier Piña DO [address] [place] [address] Referral ID Status Reason Start Date Expiration Date Visits Requested Visits Authorized [id number] Pending Review Specialty Services Required 12/30/[phone] Question Answer Referral Priority Within 3 days (urgent) Where should this appointment be scheduled[facility] Is this referral for medication management? Yes Comments Discharge Order Reason for Visit * Reason Comments Leg Pain X2 years * Auth/Cert Specialty Diagnoses / Procedures Referred By Contac t Referred To Contact [facility] [address] [place] [address] Phone: [phone] [facility] [address] [place] [address] Referral ID Status Reason Start Date Expiration Date Visits Re quested Visits Authorized [id number] Encounter Details Date Type Department Care Team (Late st Contact Info) Description 12/30/2023 12:40 PM EDT - 12/30/2023 8:00 PM EDT Emergency [facility]) Emergency Department ([facility]) [address] [place] [address] Hola Flower MD [address] [place] [address] Pain of left lower extremity (Primary Dx); Chest pain Discharge Disposition: Home - Self Care Allergies No known active allergiesdocumented as of this encounter (statuses as of 12/31/2023) Medications Medication Sig Dispensed Refills Start Date End Date Status OMEPRAZOLE 20 MG PO CPDR Active GLUCOSAMINE CHONDROITIN COMPLX PO CAPS 1 TABLET DAILY Active MULTIVITAMINS PO TABS 1 TABLET DAILY Active VYTORIN 10-20 MG PO TABS 1/2 tablet daily Active FLOMAX 0.4 MG PO [id number]: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 06/18/2021 Active hydroCHLOROthiazid e 25 MG Oral Tablet (Hydrodiuril) Take 1 [...] 1 Tablet by mouth at bedtime. Active Gabapentin 100 MG Oral Capsule (Neurontin) Take 1 Capsule by mouth in the morning and 1 Capsule at noon and 1 Capsule before bedtime. Do all this for 14 days. 42 Capsule 12/30/2023 01/13/2024 Active documented as of this encounter (statuses as of 12/31/2023) Active Problems Problem Noted Date Diagnosed Date ADVANCE DIRECTIVE INFORMATION 09/24/2009 Overview: Yes, Patient instructed to provide copy of advance directive for provider to review and to be scanned into Electronic Medical Record Bilateral inguinal hernia 12/25/2008 Other specified gastritis without mention of hem orrhage 11/13/2006 documented as of this encounter (statuses as of 12/31/2023) Immunizations Name Administration Dates Next Due COVID-19 [...] Sign Reading Time Taken Comments Blood Pressure 179/86 12/30/2023 12:38 PM EDT Pulse 68 12/30/2023 12:38 PM EDT Temperature 36 C (96.8 F) 12/30/2023 12:38 PM EDT Respiratory Rate 16 12/30/2023 12:38 PM EDT Oxygen Saturation 100% 12/30/2023 12:38 PM EDT Inhaled Oxygen Concentration - - Weight 69.4 kg (153 lb) 12/30/2023 12:38 PM EDT Height - - Body Mass Index 23.96 12/27/2023 10:37 AM EDT documented in this encounter Discharge Instructions * Discharge Instructions* Xavier Piña DO - 12/30/2023 7:41 PM EDT You have been seen and evaluated in the Emergency Department of [facility], in [place], [place]. Please read the discharge instructions below regarding your care. Summary Of Today's Visit: You were seen today for left leg pain and chest pain. We performed an EKG, blood work, and chest x-ray. You were evaluated by the cardiology team who recommended outpatient follow up with your campground attendant. Please call your campground attendant to schedule an appointment. We recommended admission to the hospital for your increased blood pressure was subsequent elevated cardiac enzyme level. You declinedadmission. Please follow up with your primary care provider as soon as possible. New Prescriptions/Medication Changes: Discharge Medications Disp Refills Start End Gabapentin 100 MG Oral Capsule (Neurontin) 42 Capsule 0 12/30/2023 01/13/2024 Sig - Route: Take 1 Capsule by mouth in the morning and 1 Capsule at noon and 1 Capsule before bedtime. Do all this for 14 days. - Oral Class: ePrescribing Renewals Renewal requests to authorizing provider (Xavier Piña DO) <b>prohibited</b> Follow Up/Continuation Of Care: Please follow up with your Primary Care Physician (PCP) in the next 3 day(s). If you do not have a Primary Care Physician, you may call [facility] appointments at [phone] or [phone]. Other Important Information/Return Instructions: Return for any concern for acute changes in symptoms, progression of symptoms, development of new symptoms, failure to improve or further concern regarding condition -Remove any/all access to lethal means, such as: -Firearms -Sharp or dangerous items -Medications -Household high school librarian/chemicals. -Alcohol -Ensure appropriate supervision and monitoring -Utilize emergency phone numbers should symptoms increase in intensity and/or frequency: -[facility] TAPLINE: -[facility]: -[facility]: -National Suicide Prevention Lifeline: -Mosotho/Espanol: -Crisis Text Line (texting only): 987-247 -Visit the Suicide Prevention Resource Center at www.sprc.org -Dial 911 or proceed to the nearest Emergency Department any time for further evaluation if safety status changes or new concerns emerge warranting emergency level care The above instructions were reviewed with the patient/family/parents/POA/lot worker. Thank you for allowing us to care for you. Our goal is to provide you the best care. If you have any emergency needs in the future we will be glad to help you again. We are here to serve you! documented in this encounter Consult Notes * Yolande Pettit DO - 12/30/2023 8:00 PM EDTAssociated Order(s): CARDIOLOGY CONSULT IP Patient left AMA prior to full evaluation or consult being completed Yolande Pettit DO Cloth Mercerizer Back Tender - PGY5 Available on [employer] 12/30/2023 9:31 PM documented in this encounter Miscellaneous Notes * Pt Handout (on AVS) - Xavier Piña DO - 12/30/2023 7:36 PM EDT Images from the original note were not included. [id number] What Is Angina? Angina is a warning sign that your heart muscle isn't getting enough oxygen-rich blood and is at risk for damage. Medicines, certain medical procedures, and lifestyle changes can help control angina.Talk with your healthcare provider about how to prevent angina and what to do if you get it. How does angina feel? Angina is most often described as chest pain, but this can be misleading. Angina isn't always painful, and it isn?t always felt in the chest. Angina might feel like: Discomfort, an aching, sharp, dull, or burning sensation, tightness or squeezing, or pressure that comes and goes. You may feel it in your chest, back, belly (abdomen), arm, shoulder, neck, or jaw. Other symptoms may include: Severe tiredness (fatigue) that gets worse, or feeling more tired than normal for no clear reason Shortness of breath while doing something that used to be easy Heartburn, indigestion, upset stomach (nausea), rapid heart rate, or sweating Feeling lightheaded or fainting Call 911 Call 911 right away if any of your symptoms: Last more than a few minutes Go away and come back Happen at rest and don't go away after taking nitroglycerin as prescribed by your healthcare provider Keep getting worse You could be having a heart attack (acute myocardial infarction). Don't drive to the hospital yourself or have someone else drive you. Call 911 for an ambulance to transport you. The emergency medical underwriter can start treating you right away. When does angina happen? Angina usually happens during activity. It can also occur when you have emotional stress or after a large meal. Sometimes angina can happen when the weather is too hot or too cold. All of these things can put more stress on your body and your heart. You may have unstable angina if angina: o Starts occurring more often o Lasts longer o Happens even when you're resting, sleeping, or doing little physical activity o Causes more discomfort It?s a sign that your heart problem may be getting worse. You need to call your healthcare providerright away. Last Reviewed Date: 09/29/202319991516-1854 [employer]. All rights reserved. This information is not intended as a substitute for professional medical care. Always follow your healthcare professional's instructions. * Pt Handout (on AVS) - Xavier Piña DO - 12/30/2023 7:36 PM EDT Images from the original note were not included. [id number] Uncertain Causes of Chest Pain Chest pain can happen for a number of reasons. Sometimes the cause can't be determined. If your condition does not seem serious, and your pain does not appear to be coming from your heart, your healthcare provider may recommend watching it closely. Sometimes the signs of a serious problem take moretime to appear. Many problems not related to your heart can cause chest pain. These include: Musculoskeletal. Costochondritis is an inflammation of the tissues around the ribs that can occur from trauma or overuse injuries, or a strain of the muscles of the chest wall. Respiratory. Pneumonia, collapsed lung (pneumothorax), or inflammation of the lining of the chest and lungs (pleurisy). Gastrointestinal. Esophageal reflux, heartburn, ulcers, or gallbladder disease. Anxiety and panic disorders Nerve compression and inflammation Rare problems such as aortic aneurysm or aortic dissection (a swelling of the large artery coming out of the heart or a tear in the wall of the artery), or pulmonary embolism (a blood clot in the lungs). Home care After your visit, follow these recommendations: Rest today and avoid strenuous activity. Take any prescribed medicine as directed. Be aware of any recurrent chest pain and notice any changes Follow-up care Follow up with your healthcare provider if you don't start to feel better within 24 hours, or as advised. Call 911 Call 911 if any of these occur: A change in the type of pain: if it feels different, becomes more severe, lasts longer, or begins to spread into your shoulder, arm, neck, jaw or back Shortness of breath or increased pain with breathing Weakness, dizziness, or fainting Rapid heartbeat Crushing sensation in your chest Coughing up more than a small amount of blood. When to seek medical advice Call your healthcare provider right away if any of the following occur: Cough with dark colored sputum (phlegm) or small amount of blood Fever of 100.4F (38C) or higher, or as directed by your healthcare provider Swelling, pain or redness in one leg Last Reviewed Date: 07/31/202119994609-1098 [employer]. All rights reserved. This information is not intended as a substitute for professional medical care. Always follow your healthcare professional's instructions. documented in this encounter Plan of Treatment Upcoming Encounters Date Type Department Care Team (Late st Contact Info) Description 01/24/2024 11:00 AM EDT Scheduled Telephone [facility] [address] [place] [address] Nurse Elpidio Phone Call Jhon[facility] Pain Susan [address] [place] [address] Pending Results Name Type Priority Associated Diagnoses Date /Time VITAMIN B6, PLASMA Lab Routine 2023 2:32 PM EDT VITAMIN B1 (THIAMINE), BLOOD, LC/MS/MS Lab Routine 12/30/2023 2:32 PM EDT HEAVY METALS PANEL, VENOUS Lab STAT 12/30/2023 2:32 PM EDT Scheduled Orders Name Type Priority Associated Diagnoses Orde r Schedule EKG EKG STAT Chest pain One Time for 1 Occurrences starting 12/30/2023 until 12/30/2023 VITAMIN B6, PLASMA Lab Add-on One Ti me for 1 Occurrences starting 12/30/2023 until 12/30/2023 VITAMIN B1 (THIAMINE), BLOOD, LC/MS/MS Lab Add-on One Time for 1 O ccurrences starting 12/30/2023 until 12/30/2023 HEAVY METALS PANEL, VENOUS Lab STAT One Time for 1 O ccurrences starting 12/30/2023 until 12/30/2023 Scheduled Referrals Name Type Priority Associated Diagnoses Orde r Schedule ADULT/PEDS PSYCHOLOGY REFERRAL OP Referral Within 3 days (urgent) Pain of left lower extremity Ordered: 12/30/2023 Health Maintenance Due Date Last Done Comments Depression Screening 1952 DTaP,Tdap,and Td Vaccines (3 - Tdap) 08/24/2015 08/24/2005, 04/30/1995 COVID-19 Vaccine (2022-2 4 season) 2023 10/05/2020, 09/01/2020 Influenza Vaccine [...] this encounter Medical Devices Implanted Type Area Moderate Needs Teacher Device Identifier Shelf Expiration Date Model / Serial / Lot Lens 16.5 Mx60 - [id number] - [id number] Implanted:Qty: 1 on 01/18/2017 by George Mar MD at [facility] Right: Eye [employer] : SURGICAL 07/30/2017 [id number] / [id number] / documented as of this encounter Procedures Procedure Name Priority Date/Time Associated Diagnosis Comments URINALYSIS, REFLEX TO CULTURE STAT 12/30/2023 4:18 PM EDT URINALYSIS, REFLEX TO CULTURE (CUP ONLY) STAT 12/30/2023 4:18 PM EDT URINALYSIS, REFLEX TO CULTURE (NOT FOR NEUTROPENIC PATIENTS) STAT 12/30/2023 4:18 PM EDT TROPONIN T, HIGH SENSITIVITY STAT 12/30/2023 3:56 PM EDT TROPONIN T, HIGH SENSITIVITY STAT 12/30/2023 2:32 PM EDT CK Add-on 12/30/2023 2:32 PM EDT XR CHEST 2 VIEWS STAT 12/30/2023 1:40 PM EDT EXTRA LIGHT BLUE TOP Routine 12/30/2023 1:16 PM EDT DIFFERENTIAL, AUTOMATED STAT 12/30/2023 1:16 PM EDT TROPONIN T, HIGH SENSITIVITY STAT 12/30/2023 1:16 PM EDT TSH WITH FREE T4 IF INDICATED Add-on 12/30/2023 1:16 PM EDT BASIC METABOLIC PANEL STAT 12/30/2023 1:16 PM EDT CBC STAT 12/30/2023 1:16 PM EDT PHOSPHORUS Add-on 12/30/2023 1:16 PM EDT CBC STAT 12/30/2023 1:16 PM EDT MAGNESIUM Add-on 12/30/2023 1:16 PM EDT VITAMIN B12 Add-on 12/30/2023 1:16 PM EDT documented in this encounter Results * URINALYSIS, REFLEX TO CULTURE (12/30/2023 4:18 PM EDT) Color, Urine Colorless Colorless, Light Yellow, Yellow, Dark Yellow 12/30/2023 4:37 PM EDT LABORATORY C Clarity, Urine Clear Clear 12/30/2023 4:37 PM EDT LABORATORY C Glucose, Urine Negative Negative mg/dL 12/30/2023 4:37 PM EDT [facility] Bilirubin, Urine Negative Negative 12/30/2023 4:37 PM EDT [facility] Ketone, Urine Negative Negative mg/dL 12/30/2023 4:37 PM EDT [facility] Specific [place], Urine 1.011 1.003 - 1.030 12/30/2023 4:37 PM EDT [facility] Blood, Urine Negative Negative 12/30/2023 4:37 PM EDT [facility] pH, Urine 6.5 5.0 - 7.5 Units 12/30/2023 4:37 PM EDT LABORATORY C Protein, Urine Negative Negative mg/dL 12/30/2023 4:37 PM EDT [facility] Urobilinogen, Urine Normal Normal mg/dL 12/30/2023 4:37 PM EDT [facility] Nitrite, Urine Negative Negative 12/30/2023 4:37 PM EDT [facility] Esterase, Urine Negative Negative 12/30/2023 4:37 PM EDT [facility] RBC, Urine 0-2 0 - 2 /HPF 12/30/2023 4:37 PM EDT LABORATORY C WBC, Urine 0-2 0 - 2 /HPF 12/30/2023 4:37 PM EDT [facility] Bacteria, Urine 0-25 0 - 25 /HPF 12/30/2023 4:37 PM EDT LABORATORY C Culture, Urine 12/30/2023 4:37 PM EDT LABORATORY C Comment:Culture not indicate d by urinalysis results Urine Urine specimen obtained by clean catch procedure / Unknown Non-blood Collection / Unknown 12/30/2023 4:18 PM EDT 12/30/2023 4:21 PM EDT Xavier Piña DO LAB URINE ORDERABL ES Performing Organization Address [facility] Co de Phone Number [facility]ATORY [facility] [address] [place] [address] * URINALYSIS, REFLEX TO CULTURE (CUP ONLY) (12/30/2023 4:18 PM EDT) Urinalysis, Reflex to Culture Specimen Specimen collected and received 12/30/2023 6:01 PM EDT [facility] Urine Urine specimen obtained by clean catch procedure / Unknown Non-blood Collection / Unknown 12/30/2023 4:18 PM EDT 12/30/2023 4:20 PM EDT Xavier Piña DO LAB URINE ORDERABL ES Performing Organization Address [facility] de Phone Number LAB[facility]ATORY [facility] [address] [place] [address] * (ABNORMAL) TROPONIN T, HIGH SENSITIVITY (12/30/2023 3:56 PM EDT) Troponin T, High Sensitivity 28(H) <=22 ng/L 12/30/2023 4:25 PM EDT [facility] Blood Venous blood specimen / Unknown Venipuncture / Unknown 12/30/2023 3:56 PM EDT 12/30/2023 4:06 PM EDT Xavier Piña LAB BLOOD ORDERABL ES Performing Organization Address [facility] Co de Phone Number [facility]AT[facility] [address] [place] [address] * (ABNORMAL) CK (12/30/2023 2:32 PM EDT) CK 320(H) 39 - 308 U/L 12/30/2023 3:33 PM EDT [facility] Blood Venous blood specimen / Unknown Venipuncture / Unknown 12/30/2023 2:32 PM EDT 12/30/2023 2:38 PM EDT Xavier Piña DO LAB BLOOD ORDERABL ES Performing Organization Address City/[facility]/ZIP Co de Phone Number [facility]AT[facility] [address] [place] [address] * (ABNORMAL) TROPONIN T, HIGH SENSITIVITY (12/30/2023 2:32 PM EDT) Troponin T, High Sensitivity 29(H) <=22 ng/L 12/30/2023 2:56 PM EDT [facility] Blood Venous blood specimen / Unknown Venipuncture / Unknown 12/30/2023 2:32 PM EDT 12/30/2023 2:38 PM EDT Xavier Piña DO LAB BLOOD ORDERABL ES Performing Organization Address [facility] Co de Phone Number [facility]ORY [facility] [address] [place] [address] * XR CHEST 2 VIEWS (12/30/2023 1:40 PM EDT) Anatomical Region Laterality Modality Chest Digital Radiogra phy 12/30/2023 2:07 PM EDT Impressions 12/30/2023 2:04 PM EDT IMPRESSION No evidence of acute cardiopulmonary disease. Narrative 12/30/2023 2:04 PM EDT EXAM XR CHEST 2 VIEWS-12/30/2023 1:40 pm HISTORY Chest pain COMPARISON Chest radiograph from 05/05/2009. TECHNIQUE Upright PA and lateral radiographs of the chest were performed. FINDINGS There are degenerative changes of the thoracic spine. 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 There are atherosclerotic calcifications of the thoracic aorta. The cardiomediastinal silhouette is otherwise unremarkable. There is no pleural effusion. The lungs are clear. There is a small ovoid density in the left upper quadrant of the abdomen which may represent an ingested medication tablet. Procedure Note Go, Manuel Shetty MD - 12/30/2023 EXAM XR CHEST 2 VIEWS-12/30/2023 1:40 pm HISTORY Chest pain COMPARISON Chest radiograph from 05/05/2009. TECHNIQUE Upright PA and lateral radiographs of the chest were performed. FINDINGS There are degenerative changes of the thoracic spine. There is a leftshoulder arthroplasty. There are atherosclerotic calcifications of thethoracic aorta. The cardiomediastinal silhouette is otherwiseunremarkable. There is no pleural effusion. The lungs are clear. There is a small ovoid density in the left upper quadrant of the abdomenwhich may represent an ingested medication tablet. IMPRESSION IMPRESSION No evidence of acute cardiopulmonary disease. Xavier Piña DO RADIOLOGY (RAD GEN ERAL) * PHOSPHORUS (12/30/2023 1:16 PM EDT) Phosphorus 3.1 2.5 - 4.8 mg/dL 12/30/2023 1:58 PM EDT LAB[facility]ORY [facility] Blood Venous blood specimen / Unknown Venipuncture / Unknown 12/30/2023 1:16 PM EDT 12/30/2023 1:23 PM EDT Xavier [employer] LAB BLOOD ORDERABL ES Performing Organization Address [facility] de Phone Number [facility]ATORY [facility] [address] [place] [address] * MAGNESIUM (12/30/2023 1:16 PM EDT) Magnesium 2.2 1.5 - 2.6 mg/dL 12/30/2023 1:58 PM EDT LAB[facility]ORY [facility] Blood Venous blood specimen / Unknown Venipuncture / Unknown 12/30/2023 1:16 PM EDT 12/30/2023 1:23 PM EDT [employer] LAB BLOOD ORDERABL ES Performing Organization Address City/[facility] Co de Phone Number [facility]AT[facility] [address] [place] [address] * TSH WITH FREE T4 IF INDICATED (12/30/2023 1:16 PM EDT) TSH 1.97 0.27 - 4.20 uIU/mL 12/30/2023 3:03 PM EDT LAB[facility]ORY [facility] Blood Venous blood specimen / Unknown Venipuncture / Unknown 12/30/2023 1:16 PM EDT 12/30/2023 1:23 PM EDT Xavier Piña DO LAB BLOOD ORDERABL ES Performing Organization Address [facility] Co de Phone Number [facility]ORY [facility] [address] [place] [address] * VITAMIN B12 (12/30/2023 1:16 PM EDT) Vitamin B12 569 232 - 1,245 pg/mL 12/30/2023 3:03 PM EDT LAB[facility]ORY [facility] Blood Venous blood specimen / Unknown Venipuncture / Unknown 12/30/2023 1:16 PM EDT 12/30/2023 1:23 PM EDT Xavier Piña LAB BLOOD ORDERABL ES Performing Organization Address [facility] Co de Phone Number LAB[facility]ORY [facility] [address] [place] [address] * EXTRA LIGHT BLUE TOP (12/30/2023 1:16 PM EDT) Blood Venous blood specimen / Unknown Venipuncture / Unknown 12/30/2023 1:16 PM EDT 12/30/2023 1:23 PM EDT Xavier Piña LAB BLOOD ORDERABL ES Performing Organization Address [facility] de Phone Number LAB[facility]ORY [facility] [address] [place] [address] * (ABNORMAL) DIFFERENTIAL, AUTOMATED (12/30/2023 1:16 PM EDT) WBC 6.75 4.00 - 10.80 K/uL 12/30/2023 1:29 PM EDT LAB[facility]ORY [facility] Neutrophils % 81.5(H) 40.0 - 75.0 % 12/30/2023 1:29 PM EDT LAB[facility]ORY [facility] Lymphocytes % 9.5(L) 18.0 - 42.0 % 12/30/2023 1:29 PM EDT LAB[facility]ORY [facility] Monocytes % 7.1 1.0 - 11.0 % 12/30/2023 1:29 PM EDT [facility] Eosinophils % 1.3 0.0 - 6.0 % 12/30/2023 1:29 PM EDT LAB[facility] Basophils % 0.3 0.0 - 2.0 % 12/30/2023 1:29 PM EDT LAB[facility]ORY [facility] Immature Granulocytes % 0.3 0.0 - 2.0 % 12/30/2023 1:29 PM EDT LAB[facility]ORY [facility] Absolute Neutrophils 5.50 1.80 - 7.70 K/uL 12/30/2023 1:29 PM EDT LAB[facility] Absolute Lymphocytes 0.64(L) 1.00 - 4.80 K/ul 12/30/2023 1:29 PM EDT LAB[facility] Absolute Monocytes 0.48 0.00 - 1.10 K/uL 12/30/2023 1:29 PM EDT LAB[facility] Absolute Eosinophils 0.09 0.00 - 0.70 K/uL 12/30/2023 1:29 PM EDT LAB[facility] Absolute Basophils 0.02 0.00 - 0.20 K/uL 12/30/2023 1:29 PM EDT LAB[facility] Absolute Immature Granulocytes 0.02 0.00 - 0.20 K/uL 12/30/2023 1:29 PM EDT LAB[facility]ORY [facility] Blood Venous blood specimen / Unknown Venipuncture / Unknown 12/30/2023 1:16 PM EDT 12/30/2023 1:23 PM EDT Xavier Piña DO LAB BLOOD ORDERABL ES [facility] [address] [place] [address] * (ABNORMAL) CBC (12/30/2023 1:16 PM EDT) WBC 6.75 4.00 - 10.80 K/uL 12/30/2023 1:29 PM EDT LAB[facility] RBC 3.89 4.50 - 5.25 M/uL 12/30/2023 1:29 PM EDT LAB[facility] HGB 12.8(L) 14.0 - 16.8 g/dL 12/30/2023 1:29 PM EDT LAB[facility] HCT 38.4(L) 40.0 - 48.4 % 12/30/2023 1:29 PM EDT LAB[facility]ORY [facility] MCV 98.7 82.0 - 99.5 fL 12/30/2023 1:29 PM EDT LAB[facility]ORY [facility] MCH 32.9 27.0 - 34.0 pg 12/30/2023 1:29 PM EDT LAB[facility]ORY [facility] MCHC 33.3 32.0 - 36.0 g/dL 12/30/2023 1:29 PM EDT LAB[facility]ORY [facility] RDW 11.9 11.5 - 15.5 % 12/30/2023 1:29 PM EDT LAB[facility]ORY [facility] PLT 291 140 - 400 K/uL 12/30/2023 1:29 PM EDT LAB[facility]ORY [facility] MPV 8.3 6.6 - 11.1 fL 12/30/2023 1:29 PM EDT LAB[facility]ORY [facility] nRBCs 0 <=0 /100 WBCs 12/30/2023 1:29 PM EDT LAB[facility]ORY [facility] Blood Venous blood specimen / Unknown Venipuncture / Unknown 12/30/2023 1:16 PM EDT 12/30/2023 1:23 PM EDT Xavier Piña DO LAB BLOOD ORDERABL ES LABORATORY [facility] [address] [place] [address] * (ABNORMAL) BASIC METABOLIC PANEL (12/30/2023 1:16 PM EDT) BUN 19 6 - 20 mg/dL 12/30/2023 1:58 PM EDT [facility] Creatinine 1.1 0.6 - 1.2 mg/dL 12/30/2023 1:58 PM EDT [facility] Estimated Glomerular Filtration Rate 67 >=60 mL/min 12/30/2023 1:58 PM EDT [facility] Comment:eGFR is calculated b ased on the CKD-EPI 2020 equation Sodium 136 135 - 146 mmol/L 12/30/2023 1:58 PM EDT [facility] Potassium 4.0 3.5 - 5.1 mmol/L 12/30/2023 1:58 PM EDT [facility] Chloride 101 98 - 107 mmol/L 12/30/2023 1:58 PM EDT [facility] CO2 24 22 - 32 mmol/L 12/30/2023 1:58 PM EDT [facility] Anion Gap 11 7 - 15 mmol/L 12/30/2023 1:58 PM EDT LABORATORY C Glucose 164(H) 70 - 120 mg/dL 12/30/2023 1:58 PM EDT [facility] Calcium 9.3 8.4 - 10.2 mg/dL 12/30/2023 1:58 PM EDT LABORATORY C Blood Venous blood specimen / Unknown Venipuncture / Unknown 12/30/2023 1:16 PM EDT 12/30/2023 1:23 PM EDT Xavier [employer] LAB BLOOD ORDERABL ES Performing Organization Address City/[facility] Co de Phone Number [facility]ORY [facility] [address] [place] [address] * (ABNORMAL) TROPONIN T, HIGH SENSITIVITY (12/30/2023 1:16 PM EDT) Pathologist [facility] Troponin T, High Sensitivity 29(H) <=22 ng/L 12/30/2023 1:58 PM EDT LAB[facility]ORY [facility] Blood Venous blood specimen / Unknown Venipuncture / Unknown 12/30/2023 1:16 PM EDT 12/30/2023 1:23 PM EDT Xavier [employer] LAB BLOOD ORDERABL ES Performing Organization Address [facility] Co de Phone Number LAB[facility]ATORY [facility] [address] [place] [address] documented in this encounter Visit Diagnoses Diagnosis Pain of left lower extremity- Primary Chest pain Chest pain, unspecified documented in this encounter Administered Medications Inactive Administered Medications - up to 3 most recent administrations Medication Order MAR Action Action Date Dose Rate Site Gabapentin (Neurontin) cap 100 mg 100 mg, Oral, ONCE, On 6/1/24 at 2030, For 1 dose documented in this encounter Active and Recently Administered Medications Times are shown in EDT. Scheduled Medication Order 12/28/2023 12/29/2023 12/30/2023 Gabapentin (Neurontin) cap 100 mg 100 mg, Oral, ONCE, On 12/30/23 at 2030, For 1 dose 2029 (Not Given - Pr ovider: Geraldine Golden RN - Reason: Refused-Notify Provider) documented in this encounter Advance Directives * Full Code (Latest Code Status on File) Date Activated Date Inactivated Comments 01/18/2017 7:19 AM 01/18/2017 1:16 PM This order r eflects the patients wishes and were consensually agreed upon. Care Teams Fruit Grader Operator Relationship Specialty Start Date End Date Omero Blood MD [address] [address] PCP - General Sports Medicine 12/27/23 documented as of this encounter
--- OUTSIDE RECORDS SUMMARY | 2024-05-15 07:15 | External Medical Summary ---
Author Name Unknown Address Unknown Organization K01:LABORATORY [facility] [place] - [address] [place] [address] Laboratory Report Ordering Provider Test Date Status DARRIAN HOOKS 12/30/2023 13:16:00 Final Observation Date Value Abnormality Reference (Units ) Status Vitamin B12 12/30/2023 13:16:00 284 760-1352 (pg/mL) Final Performing Location [facility]ATORY [facility] - [address] [place] [address]
--- OUTSIDE RECORDS SUMMARY | 2024-05-15 07:15 | External Medical Summary ---
Author Name Unknown Address Unknown Organization K01:LABORATORY [facility] [place] - [address] [place] [address] Laboratory Report Ordering Provider Test Date Status DARRIAN HOOKS 12/30/2023 13:16:00 Final Observation Date Value Abnormality Reference (Units ) Status SYNC LEUKOCYTES IN BLOOD BY AUTOMATED COUNT 12/30/2023 13:16:00 6.75 4.00-10.80 (K/uL) Final Segs 12/30/2023 13:16:00 81.5 Above high normal 40.0-75.0 (%) Final Lymphs % 12/30/2023 13:16:00 9.5 Below low normal 18.0-42.0 (%) Final Monos 12/30/2023 13:16:00 7.1 1.0-11.0 (%) Final Eosinophils 12/30/2023 13:16:00 1.3 0.0-6.0 (%) Final Basos 12/30/2023 13:16:00 0.3 0.0-2.0 (%) Final Immature Granulocyte, Percent 12/30/2023 13:16:00 0.3 0.0-2.0 (%) Final Absolute Segs 12/30/2023 13:16:00 5.50 1.80-7.70 (K/uL) Final Lymphs, absolute 12/30/2023 13:16:00 0.64 Below low normal 1.00-4.80 (K/ul) Final Monos, Abs 12/30/2023 13:16:00 0.48 0.00-1.10 (K/uL) Final Eos, Abs 12/30/2023 13:16:00 0.09 0.00-0.70 (K/uL) Final Basos, Abs 12/30/2023 13:16:00 0.02 0.00-0.20 (K/uL) Final Immature Granulocytes, Number 12/30/2023 13:16:00 0.02 0.00-0.20 (K/uL) Final Performing Location LABORATORY [facility] - [facility] [place] [address]
--- OUTSIDE RECORDS SUMMARY | 2024-05-15 07:15 | External Medical Summary ---
Author Name Unknown Address Unknown Organization K01:LABORATORY [facility] [place] [address] [place] [address] Laboratory Report Ordering Provider Test Date Status JOHN HOOKSPEG 12/30/2023 13:16:00 Final Observation Date Value Abnormality Reference (Units ) Status BUN 12/30/2023 13:16:00 19 6-20 (mg/dL) Final Creatinine 12/30/2023 13:16:00 1.1 0.6-1.2 (mg/dL) Final Glomerular filtration rate/1.73 sq M.predicted [Volume Rate/Area] in Serum, Plasma or Blood by Creatinine-based formula (CKD-EPI) 12/30/2023 13:16:00 67 >=60 (mL/min) Final eGFR is calculated based on the CKD-EPI 2020 equation Sodium 12/30/2023 13:16:00 136 135-146 (m mol/L) Final Potassium 12/30/2023 13:16:00 4.0 3.5-5.1 (m mol/L) Final Cl 12/30/2023 13:16:00 101 98-107 (mm ol/L) Final CO2 12/30/2023 13:16:00 24 22-32 (mmo l/L) Final Anion gap 12/30/2023 13:16:00 11 7-15 (mmol /L) Final Glucose 12/30/2023 13:16:00 164 Above high normal 70 -120 (mg/dL) Final Calcium 12/30/2023 13:16:00 9.3 8.4-10.2 ( mg/dL) Final Performing Location LABORATORY [facility] [place] [address] [place] [address]
--- OUTSIDE RECORDS SUMMARY | 2024-05-15 07:15 | External Medical Summary ---
Author Name Unknown Address Unknown Organization K01:[facility]ORY [facility] [place] [address] [facility] [address] Laboratory Report Ordering Provider Test Date Status DARRIAN HOOKS 12/30/2023 13:16:00 Final Observation Date Value Abnormality Reference (Units ) Status TSH 12/30/2023 13:16:00 1.97 0.27-4.20 (uIU/mL) Final Performing Location LABORATORY C - [address] [facility] [address]
--- OUTSIDE RECORDS SUMMARY | 2024-05-15 07:15 | External Medical Summary ---
Author Name Unknown Address Unknown Organization K01:LABORATORY C - [address] [place] [address] Laboratory Report Ordering Provider Test Date Status DARRIAN HOOKS 12/30/2023 15:56:00 Final Observation Date Value Abnormality Reference (Units ) Status Troponin T 12/30/2023 15:56:00 28 Above high normal < =22 (ng/L) Final Performing Location [facility] [address] [facility] [address]
--- OUTSIDE RECORDS SUMMARY | 2024-05-15 07:15 | External Medical Summary | Continuity of Care Document ---
Author Name Unknown Organization [address] Address [address] [place] [phone] Care Team Providers Care Audio Visual Project Manager Name Role Phone Omero Blood Primary Care Physician [phone] Encounter [facility] [id number] Date(s): 01/02/24 - 01/02/[address] [place] [id number] [facility], [facility] [address] [place] [address] [phone] Encounter Diagnosis Body mass index [BMI] 25.0-25.9, [...] bid, Disp# 180 tab, Refills: 3, Pharmacy: [facility] Start Date: 10/17/23 Status: Ordered Fish Oil 1000 mg oral capsule Start: 06/10/15 1:01:00 PM EST Start Date: 06/10/15 Status: Ordered Flomax 0.4 mg oral capsule Start: 09/25/23 10:28:00 AM EST, 1 cap, PO, Daily, Disp# 90 cap, Refills: 3, Pharmacy: [facility] Start Date: 09/25/23 Status: Ordered gabapentin 100 mg oral capsule Start: 01/02/24 8:09:00 AM EDT, 1 cap, PO, tid Start Date: 01/02/24 Status: Ordered hydrALAZINE 10 mg oral tablet Start: 11/06/23 2:26:00 PM EDT, 1 tab, PO, bid, Disp# 180 tab, Refills: 3, Pharmacy: [facility] Start Date: 11/06/23 Status: Ordered irbesartan 150 mg oral tablet Start: 04/28/23 11:10:00 AM EDT, 1 tab, PO, Daily, Disp# 90 tab, Refills: 3, Pharmacy: [facility] Start Date: 04/28/23 Status: Ordered multivitamin Start: 10/18/21 9:57:00 AM EDT, 1 tab, PO, Daily Start Date: 10/18/21 Status: Ordered nitroglycerin 0.4 mg sublingual tablet Start: 04/28/23 11:10:00 AM EDT, 1 tab, SL, q5min, Disp# 90 tab, Refills: 3, If chest pain not relieved in 5 minutes after first dose, seek immediate medical attention, PRN: as needed for chest pain, Pharmacy: [facility] Start Date: 04/28/23 Status: Ordered omeprazole 20 mg oral delayed release capsule Start: 10/17/23 10:50:00 AM EDT, 1 cap, PO, Daily, Disp# 90 cap, Refills: 3, Pharmacy: [facility] Start Date: 10/17/23 Status: Ordered rOPINIRole 0.25 mg oral tablet Start: 01/02/24 8:32:00 AM EDT, See Instructions, Disp# 60 tab, 1 tab PO Daily 1 to 3 hours before bedtime if control not adequtae can increase to 0.5 mg after 3 days, Pharmacy: [facility] Start Date: 01/02/24 Status: Ordered rosuvastatin 40 mg oral tablet Start: 10/17/23 10:50:00 AM EDT, 1 tab, PO, qhs, Disp# 90 tab, Refills: 3, Pharmacy: [facility] Start Date: 10/17/23 Status: Ordered Mental Status 01/02/24 Barriers to Learning one year None evide nt Mandatory Health Literacy Documentation Yes Health Literacy Communication Barriers N ever Primary Language Luxembourgish Problem List Condition Confirmation Course Effective Dates [...] repair 1999 Completed Hernia repair x [id number] Completed Arm repair 1994 Completed History of [...] basis he was seen recently by Lashawn Larson and found to havenormal pulses normal coloration [...] his recent follow-upand had them done at [facility]. He gave the number today to getthe [...] repair| Service Date: 1999Hernia repair x [phone]| Service Date: 1995Arm repair| Service Date: 1994History [...] Merrill Lori Lipid Screening on02/28/23.Satisfied by Contributor_system, [employer] Electronic Signature on File Electronically Reviewed/Signed by: Omero Blood M.D. Author Signature Dt/Tm:01/03/2024 12:16 PM Division of Sports Medicine KATHERINE * MD Blood Jesse: PERFORM Event Display: FCM Outpt Note Authored Date: [id number] Time: 50 mins 5- pre-visit chart review 35- visit, inclusive of history, exam, and discussion of assessment/plan 10- post-visit documentation/orders/coordination of care Electronic Signature on File CC: Juan R Dent, [address] [place] [id number] Electronically Reviewed/Signed by: Omero Blood M.D. 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
--- OUTSIDE RECORDS SUMMARY | 2024-05-15 07:15 | External Medical Summary ---
Author Name Unknown Address Unknown Organization K01:LABORATORY [facility] [place] - [facility] [address] [facility] [address] [facility] [address] Laboratory Report Ordering Provider Test Date Status RASHID HOOKSCharles 12/30/2023 13:16:00 Final Observation Date Value Abnormality Reference (Units ) Status WBC, Total 12/30/2023 13:16:00 6.75 4.00-10.80 (K/uL) Final RBC 12/30/2023 13:16:00 3.89 4.50-5.25 (M/uL) Final Hemoglobin 12/30/2023 13:16:00 12.8 Below low normal 14.0-16.8 (g/dL) Final HCT 12/30/2023 13:16:00 38.4 Below low normal 40.0-48.4 (%) Final MCV 12/30/2023 13:16:00 98.7 82.0-99.5 (fL) Final MCH 12/30/2023 13:16:00 32.9 27.0-34.0 (pg) Final MCHC 12/30/2023 13:16:00 33.3 32.0-36.0 (g/dL) Final RDW 12/30/2023 13:16:00 11.9 11.5-15.5 (%) Final Platelets 12/30/2023 13:16:00 291 140-400 (K/uL) Final MPV 12/30/2023 13:16:00 8.3 6.6-11.1 (fL) Final Nucleated erythrocytes/100 leukocytes [Ratio] in Blood by Automated count 12/30/2023 13:16:00 0 <=0 (/100 WBCs) Final Performing Location LABORATORY [facility] - [address] [place] [address]
--- OUTSIDE RECORDS SUMMARY | 2024-05-15 07:15 | External Medical Summary ---
Author Name Unknown Address Unknown Organization K01:LABORATORY [facility] - [address] [place] [address] Laboratory Report Ordering Provider Test Date Status DARRIAN HOOKS 12/30/2023 14:32:00 Final Observation Date Value Abnormality Reference (Units ) Status CK 12/30/2023 14:32:00 320 Above high normal 39 -308 (U/L) Final Performing Location LABORATORY [facility] - [address] [place] [address]
--- OUTSIDE RECORDS SUMMARY | 2024-05-15 07:15 | External Medical Summary ---
Author Name Unknown Address Unknown Organization K01:LABORATORY [facility] - [address] [place] [address] Laboratory Report Ordering Provider Test Date Status DARRIAN HOOKS 12/30/2023 13:16:00 Final Observation Date Value Abnormality Reference (Units ) Status Troponin T 12/30/2023 13:16:00 29 Above high normal < =22 (ng/L) Final Performing Location LAB[facility]ATORY [facility] - [address] [place] [address]
--- NOTE | 2024-05-15 07:55 | Electrocardiogram Report ---
Test Reason : Blood Pressure : */* mmHG Vent. Rate : 73 BPM Atrial Rate : 73 BPM P-R Int : 194 ms QRS Dur : 146 ms QT Int : 428 ms P-R-T Axes : 38 -45 97 degrees QTcB Int : 471 ms Normal sinus rhythm Left axis deviation Left bundle branch block Abnormal ECG When compared with ECG of 20-Apr-2023 22:11, No significant change Confirmed by Joe Menendez ([id number]) on 05/15/2024 7:54:37 AM Referred By: REFERRED SELF Confirmed By: Joe Menendez
[2024-05-15] MEDS: TAMSULOSIN HCL 0.4 MG CAP PO SCH (08:17)
[2024-05-15] MEDS: PANTOprazole 40 MG TAB PO SCH (08:17)
[2024-05-15] MEDS: carvediloL 3.125 MG TAB PO SCH (08:17)
[2024-05-15] MEDS: ROSUVASTATIN CALCIUM 20 MG TAB PO SCH (08:18)
[2024-05-15] MEDS ORDERED: hydrALAZINE 10 MG TAB PO SCH (09:00)
[2024-05-15] MEDS ORDERED: LOSARTAN POTASSIUM 50 MG TAB PO SCH (09:00)
--- NOTE | 2024-05-15 12:25 | Cardiology Consultation ---
Date of Consultation May 15, 2024 Assessment & Plan (1) NSTEMI (non-ST elevated myocardial infarction): (2) CAD (coronary artery disease): (3) Complete left bundle branch block (LBBB): (4) Hypercholesteremia: (5) Labile hypertension: Plan Recommend LHC to redefine coronary anatomy given his recent increase in angina- depending on results, further rec may follow. Cont current meds for now. Conaider DAPT given recent TIA back in March as well. Will review case with Dr. Rose. History of Present Illness Reason for Consultation: recent 2 week increase in anginal symptoms Requesting Physician: GAY Attending Physician: Lew Mike History of Present Illness This is an 84 y/o well known to Dr. Dent with a hx of obstructive CAD, last cath October 10, 2022 with Diag 70% and distal 95% LAD disease, diffuse RCA disease which was being treated medically. He was last seen by Dr. Dent 05/01 and did not have symptoms at that time. Although he has a LBBB, they did a treadmill stress to assess chronotropic incompetence. He was able to ambulate to 95% HR on the treadmill without symptoms. Since that last visit he has been getting exertional CP and SOB which causes him to have to stop. This has happened several times in the last 2 weeks. His cardiac enzymes are slightly abnormal 50-60 range. He is currently pain free. He underwent a PET stress October 07 2022 showing RCA territory ischemia at the time. Overall EF is around 50% with the LBBB. The RCA at the time showed moderate diffuse disease which was treated medically. Because of his recent testing, and now fairly acute increase in symptoms, I recommended that he undergo LHC to redefine his coronary anatomy. His is agreeable. He is on BB carvedilol 3.125mg in am and 12.5mg in pm due to nocturnal HTN. Allergies Allergy/AdvReac Type Severity Reaction Status Date / Time No Known Allergies Allergy Verified 04/20/23 23:27 Home Medications Medication Instructions Recorded Confirmed Type aspirin 81 mg tablet,delayed 81 mg PO DAILY 05/06/21 04/20/23 History release (Adult Low Dose Aspirin) melatonin 5 mg capsule 5 mg PO HS 05/06/21 05/14/24 History multivitamin 1 tab PO DAILY 05/06/21 05/14/24 History omega 2-vmc-ujb-fish oil 1,000 mg 1 cap PO BID 05/06/21 05/14/24 History (120 mg-180 mg) capsule (Fish Oil) omeprazole 20 mg capsule,delayed 20 mg PO DAILY 05/06/21 05/14/24 History release tamsulosin 0.4 mg capsule (Flomax) 0.4 mg PO DAILY 05/06/21 05/14/24 History amlodipine 5 mg tablet 5 mg PO .DAILY AT NOON 04/20/23 04/20/23 History aspirin 81 mg tablet,delayed 81 mg PO QPM 04/20/23 05/14/24 History release calcium 600 mg (as 1 tab PO BID 04/20/23 05/14/24 History carbonate)-vitamin D3 10 mcg (400 unit) tablet (Calcium 600 + D(3)) carvedilol 12.5 mg tablet 12.5 mg PO BID 04/20/23 04/20/23 History fish, borage, flaxseed oils-omega 1 cap PO QPM 04/20/23 04/20/23 History 3,6,9 comb no.1 1,200 mg capsule (Howells 3-6-9) glucosamine 750 ch-bzfbpsfvku-grw 1 tab PO BID 04/20/23 05/14/24 History no.1 625 mg-C 30 gz-zwld-fecc tablet (Glucosamine-Chondroitin 3X) irbesartan 300 mg tablet 150 mg PO DAILY 04/20/23 05/14/24 History multivitamin 1 tab PO QAM 04/20/23 04/20/23 History nitroglycerin 0.4 mg sublingual 0.4 mg sublingual UD PRN Chest Pain 04/20/23 04/20/23 History tablet omega 8-rjv-nbi-fish oil 1,200 mg 1,200 cap PO .DAILY AT NOON 04/20/23 04/20/23 History (144 mg-216 mg) capsule (Fish Oil) rosuvastatin 40 mg tablet 40 mg PO DAILY 04/20/23 05/14/24 History carvedilol 3.125 mg tablet 3.125 mg PO DAILY 05/14/24 05/14/24 History hydralazine 10 mg tablet 10 mg PO DAILY 05/14/24 05/14/24 History ropinirole 1 mg tablet 1 mg PO HS 05/14/24 05/14/24 History Patient History Medical History Osteoarthritis of shoulder Fracture of fifth metatarsal bone of right foot Pneumothorax Rib fractures Social History Smoking Status: Former smoker Second Hand Exposure: No; Do You Dip or Chew Tobacco: No; Hx Alcohol Use: No Hx Substance Use: No Preferred Language: Irish Communication Ability: Effective Visual Impairment: No Limitations Hearing Ability: Normal E Commerce Merchandising Coordinator Required: No Beliefs That Will Affect Care: None marital status: Current Living Situation: Spouse current occupational status: retired Feels Safe at Home: Yes Safety Concerns: Feels Safe At This Time Assistive Devices: None Review of Systems Review of Systems: All systems reviewed & are unremarkable except as noted in HPI & below Physical Exam Physical Exam: AAO x 3 in NAD Neck: no JVD or HJR Respiratory: CTA b/l Cardiovascular: regular CRYSTAL at base c/w sclerosis Results & Data Vital Signs (Past 12 Hours) Vital Signs Temp Pulse Pulse Resp BP Pulse Ox O2 Del Method 05/15/24 11:42 36.4 C L 76 18 160/97 H 98 Room Air 05/15/24 08:15 Room Air 05/15/24 07:43 36.7 C 63 16 148/73 H 97 Room Air 05/15/24 07:07 57 L 05/15/24 03:22 36.7 C 66 20 141/74 H 94 Room Air Laboratory Results Abnormal lab results 05/14/24 05/14/24 05/14/24 Range/Units 16:47 18:36 23:34 RBC 3.74 L (4.70-6.10) M/uL Hgb 11.6 L (14.0-18.0) g/dl Hct 35.1 L (42.0-52.0) % RDW Std Deviation 47.1 H (36.4-46.3) fL MPV 8.5 L (9.4-12.4) fL Lymph # (Auto) 0.65 L (1.20-3.40) K/uL Trimble # (Auto) 0.72 H (0.11-0.59) K/uL BUN/Creatinine Ratio 23.4 H (10-20) Glucose 123 H (70-99(Fasting)) mg/dl Troponin I High Sens 60.1 H* 56.6 H* 52.1 H* (0-20) pg/ml 05/15/24 Range/Units 05:23 RBC 3.44 L (4.70-6.10) M/uL Hgb 10.8 L (14.0-18.0) g/dl Hct 31.5 L (42.0-52.0) % RDW Std Deviation (36.4-46.3) fL MPV 8.4 L (9.4-12.4) fL Lymph # (Auto) (1.20-3.40) K/uL Tr[place]ble # (Auto) (0.11-0.59) K/uL BUN/Creatinine Ratio 20.8 H (10-20) Glucose (70-99(Fasting)) mg/dl Troponin I High Sens 54.4 H* (0-20) pg/ml Medications Administered Current Inpatient Medications Acetaminophen (Acetaminophen 325 Mg Tab) 650 mg PO Q4H PRN PRN Reason: Pain or Fever Stop: 06/13/24 22:40 Aspirin (Aspirin 81 Mg Ectab) 81 mg PO QPM ASNDRO Stop: 06/13/24 22:40 Last Admin: 05/14/24 23:21 Dose: 81 mg Carvedilol (Carvedilol 3.125 Mg Tab) 3.125 mg PO DAILY SANDRO Stop: 06/14/24 08:59 Last Admin: 05/15/24 08:17 Dose: 3.125 mg Carvedilol (Carvedilol 12.5 Mg Tab) 12.5 mg PO HS SANDRO Stop: 06/14/24 00:00 Last Admin: 05/15/24 01:27 Dose: 12.5 mg Enoxaparin Sodium (Enoxaparin Inj 40 Mg/0.4 Ml Syr) 40 mg SQ Q24H SANDRO Stop: 06/13/24 22:40 Last Admin: 05/14/24 23:20 Dose: 40 mg Hydralazine HCl (Hydralazine 10 Mg Tab) 10 mg PO HS PRN PRN Reason: SBP >170 Stop: 06/13/24 23:54 Losartan Potassium (Losartan Potassium 50 Mg Tab) 50 mg PO HS SANDRO Stop: 06/14/24 20:59 Melatonin (Melatonin 3 Mg Tab) 6 mg PO HSZ PRN PRN Reason: Sleep Stop: 06/13/24 22:51 Nitroglycerin (Nitroglycerin Sl 0.4 Mg/Tab Tab) 0.4 mg SL Q5M PRN PRN Reason: Chest Pain Stop: 06/13/24 22:40 Ondansetron HCl (Ondansetron Inj 2 Mg/Ml 2 Ml Vial) 4 mg IV Q6H PRN PRN Reason: Nausea And Vomiting Stop: 06/13/24 22:40 Pantoprazole Sodium (Pantoprazole 40 Mg Tab) 40 mg PO DAILY SANDRO Stop: 06/14/24 08:59 Last Admin: 05/15/24 08:17 Dose: 40 mg Ropinirole HCl (Ropinirole Hcl 1 Mg Tablet) 1 mg PO HS SANDRO Stop: 06/13/24 22:40 Last Admin: 05/14/24 23:21 Dose: 1 mg Rosuvastatin Calcium (Rosuvastatin Calcium 20 Mg Tab) 40 mg PO DAILY SANDRO Stop: 06/14/24 08:59 Last Admin: 05/15/24 08:18 Dose: 40 mg Tamsulosin HCl (Tamsulosin Hcl 0.4 Mg Cap) 0.4 mg PO DAILY SANDRO Stop: 06/14/24 08:59 Last Admin: 05/15/24 08:17 Dose: 0.4 mg
--- NOTE | 2024-05-15 13:41 | Hospitalist Progress Note ---
Date of Service May 15, 2024 Assessment & Plan (1) Exertional chest pain: Plan: 84yo male with history of non-obstructive CAD presenting on 05/14/2024 with several weeks of exertional chest discomfort, dyspnea and decreased exercise tolerance. Patient presently without chest pain. Notes that he has not had pain since arriving to the ER. His troponin is mildly elevated 60.1 --> 56.6. --> 54.4 EKG with pre-existing LBBB -Echo pending -Cardiology consultation reviewed 05/15 - recommending [facility] to redefine coronary anatomy. Patient currently NPO per cardiology. Dr. Castillo is to discuss case with Dr. Rose. -Continue ASA 81mg po daily -Continue Crestor 40 mg po daily -Continue Carvedilol - patient reports taking only 3.125mg po once daily (2) CAD (coronary artery disease): Plan: as above (3) Hypertension: Plan: Mildly elevated blood pressure in the ER. Continue Carvedilol, Hydralazine, and Losartan while inpatient. (outpatient Irbesartan 150mg PO daily) per patient he no longer takes amlodipine. Plan Chronic Medical Conditions: BPH: Continue Flomax 0.4mg po daily GERD: Continue PPI Restless Leg Syndrome: Continue Ropinirole DVT prophylaxis - Lovenox Code - Full Diet: NPO pending cardiac cath Dispo -Observation to medical with telemetry Admission and Anticipated Discharge Date Admission Date: May 14, 2024 Subjective Patient seen and examined this morning. Patient reports to be walking the halls this morning. States he has not had severe chest pain today. He states if he feels chest discomfort then he will take a large breath and it typically will subside. He denied SOB today. states he does have lower extremity edema but states it has been minimal today thus far. Physical Exam 2 Constitutional: WD/WN, vitals as above Eyes: PERRL, conjunctivae normal, anicteric sclerae Respiratory: normal respiratory effort, lungs clear to auscultation Cardiovascular: RRR, no murmur, no edema Skin: no rashes, warm and dry Psychiatric: A+Ox3, euthymic affect Results & Data Results & Data Vital Signs (Past 12 Hours) Vital Signs Temp Pulse Pulse Resp BP Pulse Ox O2 Del Method 05/15/24 11:42 36.4 C L 76 18 160/97 H 98 Room Air 05/15/24 08:15 Room Air 05/15/24 07:43 36.7 C 63 16 148/73 H 97 Room Air 05/15/24 07:07 57 L 05/15/24 03:22 36.7 C 66 20 141/74 H 94 Room Air Laboratory Results 05/15/24 05:23 05/15/24 05:23 PG Care Time/CCT Total # of Minutes Spent Total Time Spent with Patient: Total time spent is greater than 50% in coordination of care (as documented) at patient's floor/unit and/or counseling patient: Coding Level of Care Code 83984 SUB INP/OBS CARE 2/35MIN Diagnoses Exertional chest pain R07.9 CAD (coronary artery disease) I25.10 Hypertension I10
--- NOTE | 2024-05-15 15:14 | Pre Anesthesia Assessment ---
Date of Service May 15, 2024 Pre Sedation Assessment Vital Signs Temp Pulse Pulse Pulse Resp BP BP 05/15/24 14:51 72 16 147/87 H 05/15/24 14:12 62 05/15/24 11:42 36.4 C L 76 18 160/97 H 05/15/24 08:15 05/15/24 07:43 36.7 C 63 16 148/73 H 05/15/24 07:07 57 L 05/15/24 03:22 36.7 C 66 20 141/74 H 05/14/24 22:41 36.5 C 68 18 180/101 H 05/14/24 22:38 73 05/14/24 21:10 85 18 05/14/24 20:59 77 05/14/24 18:34 66 20 05/14/24 18:05 73 18 05/14/24 17:51 75 05/14/24 16:56 74 16 05/14/24 16:56 75 19 05/14/24 16:56 05/14/24 16:39 36.5 C 72 18 161/93 H BP Pulse Ox O2 Del Method 05/15/24 14:51 98 Room Air 05/15/24 14:12 05/15/24 11:42 98 Room Air 05/15/24 08:15 Room Air 05/15/24 07:43 97 Room Air 05/15/24 07:07 05/15/24 03:22 94 Room Air 05/14/24 22:41 184/96 H 97 Room Air 05/14/24 22:38 05/14/24 21:10 141/86 H 99 Room Air 05/14/24 20:59 05/14/24 18:34 163/96 H 99 Room Air 05/14/24 18:05 136/96 99 Room Air 05/14/24 17:51 05/14/24 16:56 99 Room Air 05/14/24 16:56 152/85 H 97 Room Air 05/14/24 16:56 98 Room Air 05/14/24 16:39 97 Room Air Cardiovascular Additional Comments: Regular rate and rhythm. Grade 2/6 systolic murmur Respiratory normal respiratory effort, lungs clear to auscultation Pre-Sedation Airway Assessment Smoking Status: Former smoker Mallampati 3 ASA 3 Notes The planned sedation has been discussed with the patient. Informed Consent was obtained. I have identified the patient, determined the appropriateness of sedation and have assessed the patient immediately prior to the procedure. All medicine(s) and interventions are by my order.
[2024-05-15] MEDS: HEPARIN (PORCINE) 1000 UNIT/ML 10 ML (CATH LAB USE ONLY) ONE (15:32)
[2024-05-15] MEDS: fentaNYL citrate PF 100 MCG/2 ML VIAL ONE (15:32)
[2024-05-15] MEDS: MIDAZOLAM HCL 1 MG/ML 2ML VIAL ONE (15:33)
[2024-05-15] MEDS: niCARdipine HCL INJ 2.5 MG/ML 10 ML AMP ONE (15:33)
[2024-05-15] MEDS: OPTIRAY 350 ONE (15:33)
[2024-05-15] MEDS: NITROGLYCERIN/D5W 100MCG/ML 20ML SYR ONE (15:34)
--- NOTE | 2024-05-15 15:55 | Post Anesthesia Assessment ---
Date of Service May 15, 2024 Post Sedation Assessment Vital Signs Temp Pulse Pulse Pulse Resp BP BP 05/15/24 15:45 77 14 133/95 05/15/24 14:51 72 16 147/87 H 05/15/24 14:12 62 05/15/24 11:42 36.4 C L 76 18 160/97 H 05/15/24 08:15 05/15/24 07:43 36.7 C 63 16 148/73 H 05/15/24 07:07 57 L 05/15/24 03:22 36.7 C 66 20 141/74 H 05/14/24 22:41 36.5 C 68 18 180/101 H 05/14/24 22:38 73 05/14/24 21:10 85 18 05/14/24 20:59 77 05/14/24 18:34 66 20 05/14/24 18:05 73 18 05/14/24 17:51 75 05/14/24 16:56 74 16 05/14/24 16:56 75 19 05/14/24 16:56 05/14/24 16:39 36.5 C 72 18 161/93 H BP Pulse Ox O2 Del Method 05/15/24 15:45 99 Room Air 05/15/24 14:51 98 Room Air 05/15/24 14:12 05/15/24 11:42 98 Room Air 05/15/24 08:15 Room Air 05/15/24 07:43 97 Room Air 05/15/24 07:07 05/15/24 03:22 94 Room Air 05/14/24 22:41 184/96 H 97 Room Air 05/14/24 22:38 05/14/24 21:10 141/86 H 99 Room Air 05/14/24 20:59 05/14/24 18:34 163/96 H 99 Room Air 05/14/24 18:05 136/96 99 Room Air 05/14/24 17:51 05/14/24 16:56 99 Room Air 05/14/24 16:56 152/85 H 97 Room Air 05/14/24 16:56 98 Room Air 05/14/24 16:39 97 Room Air Recovery Score Activity: Moves 4 extremities Respiration: Deep Breath/Cough Circulation: +/-20% PreAnes Value Consciousness: Fully Awake Oxygen Saturation: > 92% On Room Air Post Anesthesia Score: 10 Discharge Sedation Level of Care: Fast Track Phase II Post Sedation Plan On clinical assessment, the patient appears to have tolerated the sedation without complications. Patient is recovering as anticipated. Patient will continue to be monitored by nursing and may be discharged when sedation discharge criteria are met per below protocol. Upon Completions of procedure up to 15 minutes continue every 5 minute vital signs and the P.A.R. score; then discharge to a Phase I or Fast Track to Phase II per the following guidelines: * Discharge Patient to appropriate Phase II area if PAR is 8 or greater or return to pre- procedure baseline. The post - procedure orders will be as directed. * If PAR score is less than 8 or not return to pre-procedure baseline then patient will follow Phase I monitoring till PAR is reached for Phase II. The Phase I may be done in procedure room or may call to secure a Phase I area. * If naloxone or flumazenil are used for reversal, hold in Phase I for continued monitoring from when last reversal dose was given for a minimum of 60 minutes or longer pending the nurse and/or physician discretion of patient condition before discharge to Phase II. Please call the Sedation Physician to re-evaluate and complete post-note for discharge to Phase II area. Do NOT discharge from procedure sedation or Phase 1 until post- sedation evaluation note is complete by procedure /sedation MD Sedation Discharge Instructions to be given to the patient at discharge to home. [facility] Procedure Codes (Charges) Indication for Procedure Indication for procedure: Non-ST elevation SD Sedation/Anesthesia Procedure 1: Sedation/Anesthesia: 43775 Mod Sedation by the same physician;Init15 Min Child Age 5 & Up (Start time 1525, end time 1532) Total Sedation Time (minutes): 7
--- NOTE | 2024-05-15 16:06 | Cardiac Catheterization ---
[facility] Data: Bowling Alley Attendant Cardiac Status Clinical evaluation leading to the procedure CAD Presenation: Non STEMI Anginal Classification: CCS IV Heart Failure: No Cardiogenic Shock within 24 Hours: No Cardiac Arrest within 24 Hours: No Imaging Studies Past 6 Months: No Stress Studies Past 6 Months: No Coronary Anatomy Dominant: Left Left Main (% Stenosis): Normal LAD (% Stenosis): Proximal (30%) and Distal (Apical 90%) D1 (% Stenosis): Proximal (Subtotal (99-100%)) D2 (% Stenosis): Proximal (60 to 70%) Circumflex (% Stenosis): Normal OM1 (% Stenosis): Normal OM2 (% Stenosis): Normal OM3 (% Stenosis): Normal L PL1 (% Stenosis): Normal L PL2 (% Stenosis): Normal L PDA (% Stenosis): Mid (40%) RCA (% Stenosis): Mid (100%) Diagnostic Physicians Name: Laci Rose MD, PhD Closure Device Percutaneous Entry Location: Radial Closure Device: Radial Band Recommendations: Medical Therapy and/or Counseling Cardiac Cath Procedure Full Procedure Date May 15, 2024 Pre-Procedure Diagnosis Pre-Procedure Diagnosis: Non STEMI AUC Score AUC Score: 07 Post-Procedure Diagnosis Post-Procedure Diagnosis: Severe CAD Procedure(s) Performed Procedure(s) Performed: Coronary Angiography Hat Mender Laci Rose MD, PhD Estimated Blood Loss Estimated Blood Loss: 3 cc Medication(s) Medication(s): Fentanyl, Heparin, Lidocaine 1%, Nicardipine, Nitroglycerin and Versed Summary of Findings Brief description: Patient was brought to the cardiac catheterization suite where he was shaved and prepped in a sterile fashion. Sedated using IV Versed and fentanyl. Soft tissues of the right wrist were anesthetized using 2 mL of 1% Xylocaine. Right radial artery was accessed with a modified Seldinger technique and a 6 Japanese radial artery glide sheath was placed. Patient was provided anticoagulation with IV heparin and antispasmodics including nicardipine and nitroglycerin. All catheters were advanced and exchanged over a 0.035 J-tip wire. Left coronary angiography in orthogonal views with a 5 Japanese [place] 4 diagnostic catheter. Right coronary angiography in orthogonal views with a 5 Japanese [place] 4 diagnostic catheter. Diagnostic catheter was removed. Radial artery sheath was removed. Hemostasis was obtained using the TR band. Patient was hemodynamically stable and asymptomatic. He was returned to the recovery area. This ended the case. Coronary angiography findings: VZW-rnhsq-reiusvd vessel trifurcating into LAD, circumflex, and ramus. It is short in length and has mild luminal irregularities. QKK-fanay-qhpzxpj and transapical. Proximally there is diffuse less than 30% stenosis. First diagonal is subtotally occluded in the proximal segment. Appears long and a medium caliber branching distally. Mid LAD with mild luminal irregularities. Distal LAD without significant disease until the apex where there is a 90% stenosis. There is a medium caliber branching second diagonal which has proximal 60-70% stenosis. NIr-fvnfb-pdcbwju and dominant vessel. It travels in the AV groove giving a large caliber branching OM1, small to medium caliber OM 2, a large caliber OM 3, a large branching posterolateral 1, 2 small to medium caliber posterolateral's and then finally a large caliber and long PDA. AV groove circumflex has only luminal irregularities. The mid PDA has up to 40% stenosis. The remainder of the circumflex branches have no more than mild luminal irregularities. Ramus-this is small in caliber without significant disease. RCA-medium caliber and nondominant. It is 100% occluded (chronic total occlusion) in the mid segment and the distal segment fills late via right to right collateralization. Summary: 1. Severe coronary disease including chronic total occlusion of nondominant RCA, apical LAD, and subtotal occlusion of the D1. 2. None of the diseased arteries are appropriate for PCI 3. Continue guideline directed medical therapy for secondary prevention of coronary artery disease. Titrate up antianginal regimen. Hemodynamics Rest Ao:: 123/83 mmHg Final Ao: 132/92 mmHg LV: Not performed Recommendations Recommendations: Medical Therapy and/or Counseling Radiation Exposure (mGy) 656 mGy, fluoroscopy time 1.9 minutes Contrast (mls) 50 cc Anesthesia 1 mg Versed, 25 mcg fentanyl start time 1525, end time 1532 Procedural Complication(s) None Disposition Bowling Alley Attendant Holding/Recovery I attest to the content of the Intraoperative Record and any orders documented therein. Any exceptions are noted below. [employer] Card Cath Procedure Codes Cardiac Catheterization Procedure 1: Cardiovascular Cath Procedures: 43613 Coronaries Moderate Sedation Procedure 1: Sedation/Anesthesia: 74712 Mod Sedation by the same physician;Init15 Min Child Age 5 & Up (Initial 7 minutes, start time 1525, end time 1532) PG Care Time/CCT Total # of Minutes Spent Total Time Spent with Patient: Total time spent is greater than 50% in coordination of care (as documented) at patient's floor/unit and/or counseling patient:
[2024-05-15] MEDS: LIDOCAINE 1% LOCAL 20 ML VIAL ONE (16:30)
[2024-05-15] MEDS: rOPINIRole HCL 2 MG TABLET PO SCH (21:41)
[2024-05-15] MEDS: LOSARTAN POTASSIUM 50 MG TAB PO SCH (21:41)
[2024-05-16 03:21] VITALS: RESP 18; O2SAT 97
[2024-05-16 07:28] LABS: Hematocrit (blood only) 31.6 % (42.0-52.0); Hemoglobin 11.1 g/dl (14.0-18.0); Mean Corpuscular Hemoglobin 31.4 pg (25.0-34.0); Mean Corpuscular Hgb Conc 35.1 g/dL (32.0-36.0); Mean Corpuscular Volume 89.5 fL (80.0-100.0); Mean Platelet Volume 8.8 fL (9.4-12.4); Platelet Count 313 K/uL (130-400); RDW Coefficient of Variation 13.4 % (11.5-14.5); RDW Standard Deviation 44.2 fL (36.4-46.3); Red Blood Count 3.53 M/uL (4.70-6.10); White Blood Count 5.58 K/ul (4.8-10.8)
[2024-05-16 07:56] LABS: BUN Creatinine Ratio 21.1 (10-20); Creatinine Clr Calc Pharmacy 46.7 ml/min; Potassium 3.8 mmol/L (3.5-5.1)
[2024-05-16 08:09] VITALS: TEMP 97.7
--- NOTE | 2024-05-16 10:09 | Discharge Summary ---
Discharge Summary Date of Service May 16, 2024 Principal Dx & Hospital Course #1 = Principal Diagnosis (1) Exertional chest pain: 84yo male with history of non-obstructive CAD presenting on 05/14/2024 with several weeks of exertional chest discomfort, dyspnea and decreased exercise tolerance. His troponin mildly elevated 60.1 --> 56.6. --> 54.4 EKG with pre-existing LBBB -Echo 05/15: aortic valve sclerosis mild, w/o significant aortic valvular stenosis LV normal in size Moderate concentric LVH LVEF 30-35% LV systolic function moderately reduced septal dyskinesis moderate global hypokinesis of LV grade 1 diastolic dysfunction. -Cardiology consultation reviewed 05/15 - recommending [facility] to redefine coronary anatomy. -Cardiac cath completed by Dr. Rose on 05/15/2024 which revealed severe coronary disease including chronic total occlusion of nondominant RCA, apical LAD, and subtotal occlusion of D1. None of disease arteries appropriate for PCI. Continue guideline directed medical therapy for secondary prevention of CAD. Titrate up anti-anginal regimen. -Cardiology recommending to place patient on Imdur 30mg PO daily and Plavix 75mg PO daily. Continue Aspirin. Given that omeprazole interacts with plavix, his PPI had to be switched to pantoprazole to avoid adverse effects. -Continue Crestor 40 mg po daily -Continue Carvedilol - patient reports taking only 3.125mg po once daily -CBC, BMP 05/16 stable. (2) CAD (coronary artery disease): as above (3) Hypertension: Mildly elevated blood pressure in the ER. Continue Carvedilol, Hydralazine, and Losartan while inpatient. (outpatient Irbesartan 150mg PO daily) per patient he no longer takes amlodipine. Plan Chronic Medical Conditions: BPH: Continue Flomax 0.4mg po daily GERD: Continue PPI Restless Leg Syndrome: Continue Ropinirole Admission HPI Per Admitting Provider Laci Banerjee is a pleasant 84yo male with history of HTN, non-obstructive CAD presenting with exertional chest pain. Patient follows with [facility], Dr. Dent. Over the last couple of weeks he has noted some exertional substernal chest discomfort - mainly with walking up hills outside. His pain is sharp and pressure at time. He has had worsening PARSONS and decreased exercise tolerance as well. His symptoms are somewhat improved with taking deep breaths. Otherwise denies fever, chills, palpitations, diaphoresis, nausea, vomiting, abdominal pain. Patient reports history of non-obstructive coronary disease per cardiac catheterization 2 years ago. No stents in place. In the ER patient afebrile, HD stable. Chest pain free ER Course: ASA 324mg Discharge Exam Constitutional WD/WN, vitals as above Eyes PERRL, conjunctivae normal, anicteric sclerae Respiratory normal respiratory effort, lungs clear to auscultation Cardiovascular RRR, no murmur, no edema Skin no rashes, warm and dry Psychiatric A+Ox3, euthymic affect Discharge Plan Discharge Items Patient Disposition: Home - Self-Care Reason For Visit: EXERTIONAL CHEST PAIN AND DYSPHIA Discharge Diagnosis: Angina Activity: Resume your previous activity Non-emergency contact: Primary Care Provider and [employer] Call non-emergency contact if: you have any medication questions, your symptoms worsen, your pain is not controlled, your pain is worsening and your pain is unu sual for you Follow-up/Referrals: Karen Hannah DO [Primary Care Provider] - 05/20/24 11:05 am (Hospital follow up schedule May 20 at 11:[address] Upton) Diet: Heart Healthy Addtl Attending Provider Instructions: Mr. Banerjee, You were recently hospitalized for chest pain and underwent a cardiac catheterization while you were here. Please see recommendations below regarding your discharge. 1. Please add Isorbide 30mg daily to your medication regimen. 2. Please add Plavix 75mg daily to your regimen. Given that this medication interacts with your omeprazole please stop this medication. I have sent in pantoprazole which is a similar medication that does not interact with Plavix to control your acid reflux. 2. Please continue the remainder of your medications as previously prescribed. 3. Please follow up with cardiology. 4. Please follow up with your PCP within 1-2 weeks of discharge. If you develop any worsening chest pain, shortness of breath, dizziness, or lightheadedness please report back to the ER for further care. Sincerely, Sasha Walker PA-C Pending Studies at Discharge: No Stand-Alone Forms: My [employer], Smoking Cessation Medications and DC Order Prescriptions: New isosorbide mononitrate 30 mg tablet extended release 24 hr 30 mg PO QAM Qty: 30 0RF clopidogrel [Plavix] 75 mg tablet 75 mg PO DAILY Qty: 30 0RF pantoprazole 20 mg tablet,delayed release (DR/EC) 20 mg PO DAILY Qty: 30 0RF Continued multivitamin Tablet 1 tab PO DAILY omega 1-bay-eao-fish oil [Fish Oil] 1,000 mg (120 mg-180 mg) capsule 1 cap PO BID aspirin [Adult Low Dose Aspirin] 81 mg tablet,delayed release (DR/EC) 81 mg PO DAILY tamsulosin [Flomax] 0.4 mg capsule 0.4 mg PO DAILY melatonin 5 mg capsule 5 mg PO HS rosuvastatin 40 mg tablet 40 mg PO DAILY amlodipine 5 mg tablet 5 mg PO .DAILY AT NOON irbesartan 300 mg tablet 150 mg PO DAILY carvedilol 12.5 mg tablet 12.5 mg PO BID nitroglycerin 0.4 mg tablet, sublingual 0.4 mg sublingual UD PRN (Reason: Chest Pain) calcium carbonate-vitamin D3 [Calcium 600 + D(3)] 600 mg-10 mcg (400 unit) Tablet 1 tab PO BID omega 8-dau-byv-fish oil [Fish Oil] 1,200 (144-216) mg Capsule 1,200 cap PO .DAILY AT NOON [place] 3-6-9 1,200 mg Capsule 1 cap PO QPM multivitamin Tablet 1 tab PO QAM aspirin 81 mg Tablet,Delayed Release (Dr/Ec) 81 mg PO QPM auhivspn-zguw-jcp4-C-becky-bosw [Glucosamine-Chondroitin 3X] 750-625-30 mg Tablet 1 tab PO BID Rx Instructions: give after food/meal hydralazine 10 mg tablet 10 mg PO DAILY ropinirole 1 mg tablet 1 mg PO HS carvedilol 3.125 mg tablet 3.125 mg PO DAILY Discontinued omeprazole 20 mg capsule,delayed release(DR/EC) 20 mg PO DAILY Discharge Orders: Discharge Order (Routine); Ordered 05/16/24 Ordered By: Sasha Walker Admission Data Admit Date/Time: 05/14/24 20:06 Attending Provider: Lew Mike Admit Provider: Alma Rosa Dill Primary Care Provider: Karen Hannah Other Providers: Alma Rosa Dill; Theodora Castillo; Laci Rose Other Interventions: Discharge Summary Assessment (RN) Last Done: 05/16/24 10:18 Hospital Stay Data Consultations 05/14/24 19:45 ED Decision to Admit Stat 05/14/24 20:06 Consult Cardiology Routine 05/15/24 12:20 Consult Cardiac Catheterization Routine Procedures Performed Operation Date: 05/15/24 14:00 Actual Procedures p Cineradiography w/Routine Exam - Laci Rose MD, PhD p Cath, Coronaries ONLY (no LV) - Laci Rose MD, PhD Diagnostic Imagining Performed 05/15/24 13:42 CL Cath Imgs for PACS use only Routine Pending Results Patient Have Any Pending Studies at Discharge: No Discharge Instructions Given to Patient (Per Discharging Provider) Mr. Banerjee, You were recently hospitalized for chest pain and underwent a cardiac elizabeth terization while you were here. Please see recommendations below regarding your discharge. 1. Please add Isorbide 30mg daily to your medication regimen. 2. Please add Plavix 75mg daily to your regimen. Given that this medication interacts with your omeprazole please stop this medication. I have sent in pantoprazole which is a similar medication that does not interact with Plavix to control your acid reflux. 2. Please continue the remainder of your medications as previously prescribed. 3. Please follow up with cardiology. 4. Please follow up with your PCP within 1-2 weeks of discharge. If you develop any worsening chest pain, shortness of breath, dizziness, or lightheadedness please report back to the ER for further care. Sincerely, Sasha Walker PA-C Supervising Physician Co-Signing Physician Notes During face to face encounter, I obtained a brief physical examination, discussed hospital stay with patient and discharge instructions with patient. I discussed discharge plan of care with VALERIE Walker. I reviewed above note and agree with it except for the following: Cardiac cath completed by Cardiology. No lesions were amendable to PCI. Will treat medically with plavix and Isosorbide. Continue Aspirin. Total Time Total Time Spent Total Time Spent (In Minutes): 45 Total Time Includes: Examination of the Patient, Discharge Planning, Medication Reconciliation and Communication With Other Providers Coding Level of Care Code 82986 INP/OBS DISCH >30 MIN Diagnoses Exertional chest pain R07.9 CAD (coronary artery disease) I25.10 Hypertension I10
[2024-05-16 10:18] VITALS: BP 184/96; PULSE 85
[2024-05-16] MEDS ORDERED: Nursing to Pharmacy Communication SCH (10:45)
--- NOTE | 2024-05-16 13:59 | Cardiology Progress Note ---
Date of Service May 16, 2024 Assessment & Plan Admission and Anticipated Discharge Date Admission Date: May 14, 2024 Results & Data Vital Signs (Past 12 Hours) Vital Signs Temp Pulse Pulse Pulse Resp BP BP 05/16/24 10:18 36.5 C 85 65 18 158/86 H 184/96 H 05/16/24 10:03 05/16/24 08:09 36.5 C 65 18 158/86 H 05/16/24 08:00 66 05/16/24 03:20 36.7 C 68 18 141/78 H Pulse Ox O2 Del Method 05/16/24 10:18 97 05/16/24 10:03 Room Air 05/16/24 08:09 97 Room Air 05/16/24 08:00 05/16/24 03:20 97 Room Air Laboratory Results Abnormal lab results 05/16/24 Range/Units 06:12 RBC 3.53 L (4.70-6.10) M/uL Hgb 11.1 L (14.0-18.0) g/dl Hct 31.6 L (42.0-52.0) % MPV 8.8 L (9.4-12.4) fL BUN 24 H (6-23) mg/dl BUN/Creatinine Ratio 21.1 H (10-20)
== END 2024-05-16 12:41 | disposition home or self-care (01) ==
LOC: ED 16:34 → 2N 16:34 → SUATTDRO 20:06 → 2N 22:36 → 2E 05-15 16:24
PROC: CLB.CCO (2024-05-15 14:00)
DX: Z79.82 Long term (current) use of aspirin; E78.00 Pure hypercholesterolemia, unspecified; Z87.891 Personal history of nicotine dependence; I25.82 Chronic total occlusion of coronary artery; I44.7 Left bundle-branch block, unspecified; R79.89 Other specified abnormal findings of blood chemistry; I25.10 Atherosclerotic heart disease of native coronary artery without angina pectoris; Z79.899 Other long term (current) drug therapy; N40.0 Benign prostatic hyperplasia without lower urinary tract symptoms; K21.9 Gastro-esophageal reflux disease without esophagitis; I10 Essential (primary) hypertension; G25.81 Restless legs syndrome